=== PATIENT | female | born 1980 | race Caucasian/White ===

== ENCOUNTER 2016-04-25 15:13 | Emergency (ER) ==
[2016-04-25 15:17] VITALS: BP 148/92; TEMP 98.6; BMI 22.7
--- NOTE | 2016-04-25 15:48 | ED.PDOC ---
General ED Provider: Dr. JERAMIE THOMPSON Chief Complaint: Tooth Problem Stated Complaint: dental pain Time Seen by Physician: 15:15 Mode of Arrival: Walk-In Information Source: Patient Exam Limitations: No limitations Primary Care Provider: ADEOLA BAUM Nursing and Triage Documentation Reviewed and Agree: Yes EENT Complaint Exam - Dental/Oral Complaint/Exam Mechanism of Injury: Trauma Onset/Duration: 1week Symptoms Are: Still present Timing: Constant Initial Severity: Moderate Current Severity: Moderate Character: Reports: Throbbing Aggravating: Reports: Heat, Cold, Chewing Alleviating: Reports: None Associated Signs and Symptoms: Denies: Swelling, Discharge, Fever, Foul odor, Foul taste in mouth Related History: Reports: Similar episode Cardiac Risk Factors: Reports: None Dental/Oral Surgical History: Reports: None Tooth Findings: Present: Gross caries, Dental fracture Cervical Lymphadenopathy Present: No Facial Swelling Present: No Bleeding Present: No Septal Hematoma: No Foreign Body Present: No Dysphagia Present: No Drooling Present: No Asymmetrical Tonsillar Swelling Present: No Uvula Midline: No Margret-tonsillar Fluctuence: No Trismus Present: No Palatal Petechiae Present: No Scarlatinaform Rash Present: No Teeth Picture: 1 - decay Differential Diagnoses: Dental Caries, Fractured Tooth Review of Systems - Review Of Systems Constitutional: Reports: No symptoms Eyes: Reports: No symptoms Ears, Nose, Mouth, Throat: Reports: No symptoms Respiratory: Reports: No symptoms Cardiac: Reports: No symptoms GI: Reports: No symptoms : Reports: No symptoms Musculoskeletal: Reports: No symptoms Skin: Reports: No symptoms Neurological: Reports: No symptoms Endocrine: Reports: No symptoms Hematologic/Lymphatic: Reports: No symptoms All Other Systems: Reviewed and Negative Past Medical History - Past Medical History Previously Healthy: Yes Endocrine: Reports: None Cardiovascular: Reports: None Respiratory: Reports: None Hematological: Reports: None Gastrointestinal: Reports: None Genitourinary: Reports: Kidney stones Neuro/Psych: Reports: None, Migraine (daily headache comes on upon awakening no unusual stress no sources of gas or co in home, better with fioricet(out), has not yet followed up using BC powders) Musculoskeletal: Reports: None Cancer: Reports: None Last Menstrual Period: n/a - Surgical History General Surgical History: Reports: Unknown - Family History Family History: Reports: Unknown - Social History Smoking Status: Current some day smoker, Light tobacco smoker Hx Substance Use: No Alcohol Screening: None Physical Exam - Physical Exam Appearance: Well-appearing, No pain distress, Well-nourished Eyes: TITO, EOMI, Conjunctiva clear ENT: Ears normal, Nose normal, Oropharynx normal Respiratory: Airway patent, Breath sounds clear, Breath sounds equal, Respirations nonlabored Cardiovascular: RRR, Pulses normal, No rub, No murmur GI/: Soft, Nontender, No masses, Bowel sounds normal, No Organomegaly Musculoskeletal: Normal strength, ROM intact, No edema, No calf tenderness Skin: Warm, Dry, Normal color Neurological: Sensation intact, Motor intact, Reflexes intact, Cranial nerves intact, Alert, Oriented Psychiatric: Affect appropriate, Mood appropriate Critical Care Note - Critical Care Note Total Time (mins): 0 Course - Course Vital Signs: Temp Pulse Resp BP Pulse Ox 04/25/16 15:15 98.6 F 95 H 16 148/92 H 97 Departure - Departure Time of Disposition: 15:48 Disposition: HOME SELF-CARE Discharge Problem: Toothache Instructions: Dental Caries (ED), Toothache (ED) Condition: Good Pt referred to PMD for follow-up: No Additional Instructions: Please call your Family Physician as soon as possible to schedule a follow-up appointment. Allergies/Adverse Reactions: Allergies levofloxacin [From Levaquin] Adverse Reaction (Verified 04/25/16 15:17) ondansetron HCl [From Zofran (as hydrochloride)] Adverse Reaction (Verified 15:17) Home Medications: Ambulatory Orders 1 [No Reported Medications] 03/09/16
== END 2016-04-25 16:21 | disposition home or self-care (01) ==
LOC: ED 15:13
DX: K08.89 Other specified disorders of teeth and supporting structures (principal); K02.7 Dental root caries; F17.210 Nicotine dependence, cigarettes, uncomplicated
CPT/HCPCS: 99282

== ENCOUNTER 2016-05-09 19:17 | Emergency (ER) ==
[2016-05-09 19:22] VITALS: BMI 22.4
[2016-05-09] MEDS ORDERED: TORADOL IVP STA (19:36)
[2016-05-09] MEDS ORDERED: SODIUM CHLORIDE 1,000 ML IV STA (19:36)
[2016-05-09 19:44] LABS: BILIRUBIN,URINE Negative (NEGATIVE); KETONES,URINE Negative (NEGATIVE); LEUKOCYTE ESTERASE ,URINE Negative (NEGATIVE); NITRITE,URINE Negative (NEGATIVE); PROTEIN,URINE Negative (NEGATIVE); URINE, BLOOD Trace-intact (NEGATIVE)
[2016-05-09 19:46] LABS: ADD URINE MICROSCOPIC YES
[2016-05-09 20:03] LABS: BASOPHILS # (AUTO) 0.1 K/uL (0-0.2); BASOPHILS % (AUTO) 1.2 % (0.0-3.0); EOSINOPHILS # (AUTO) 0.1 K/ul (0.0-0.7); EOSINOPHILS % (AUTO) 0.7 % (0.0-7.0); HEMOGLOBIN 12.7 g/dl (12.0-16.0); IMMATURE GRANULOCYTE % (AUTO) 0.2 % (0.0-5.0); LYMPHOCYTES # (AUTO) 3.1 K/uL (0.60-3.4); MEAN CORPUSCULAR HEMOGLOBIN 32.1 pg (27.0-31.0); MEAN CORPUSCULAR HGB CONC 35.3 (31.8-35.4); MEAN CORPUSCULAR VOLUME 90.9 fl (81.0-99.0); MONOCYTES # (AUTO) 0.6 K/uL (0.4-2.0); MONOCYTES % (AUTO) 7.5 (0-10); NEUTROPHILS # (AUTO) 4.3 K/ul (2.0-6.9); NEUTROPHILS % (AUTO) 52.4; PLATELET COUNT 197 10^3/uL (140-440); RED BLOOD COUNT 3.96 10^6/ul (4.20-5.40); WHITE BLOOD COUNT 8.18 K/ul (4.6-10.2)
--- NOTE | 2016-05-09 20:07 | ED.PDOC ---
General ED Provider: Dr. GEOVANNA HOLDEN Chief Complaint: Abdominal Pain Stated Complaint: Patient is a 25 year old female who comes to the ER with complaints of Left upper and lower quadrant abdominal pain that started at 1400 today. Time Seen by Physician: 19:40 Mode of Arrival: Walk-In Information Source: Patient Exam Limitations: No limitations Primary Care Provider: ADEOLA BAUM Nursing and Triage Documentation Reviewed and Agree: Yes GI Complaint Exam - Abdominal Pain Complaint/Exam Onset: Sudden Duration: constant Symptoms Are: Still present Timing: Constant Initial Severity: Severe Current Severity: Severe Location of Pain: LUQ, LLQ Radiates To: Reports: Back Character: Reports: Aching, Throbbing Aggravating: Reports: None Alleviating: Reports: None Associated Signs and Symptoms: Reports: Nausea. Denies: Diaphoresis, Fever, Cough, Chest pain, Dizziness, Back pain, Constipation, Blood in stool, Dysuria, Urinary frequency, Decreased urine output, Decreased appetite, Vaginal bleeding , Vaginal discharge, Vomiting, Diarrhea, Sore throat, Decreased activity AAA Risk Factors: Reports: None Cardiac Risk Factors: Reports: None Ectopic Risk Factors: Reports: None Ovarian Torsion Risk Factors: Reports: None Related Surgical History: Reports: Kidney Stones, SIMI, BSO Patient Rh Status: Unknown Abdominal Findings: Absent: Pulsatile mass, Abdominal distention, Unequal femoral pulses, Rebound tenderness, Peritoneal signs, McBurney's Point tender, CVA Tenderness, Hernia, Inguinal swelling Differential Diagnoses: Appendicitis, Pancreatitis, Renal Colic, Ureteral Stone , PUD, Ovarian Cyst Review of Systems - Review Of Systems Constitutional: Reports: No symptoms Eyes: Reports: No symptoms Ears, Nose, Mouth, Throat: Reports: No symptoms Respiratory: Reports: No symptoms Cardiac: Reports: No symptoms GI: Reports: Abdominal pain, Nausea : Reports: No symptoms Musculoskeletal: Reports: No symptoms Skin: Reports: No symptoms Neurological: Reports: Anxiety Endocrine: Reports: No symptoms Hematologic/Lymphatic: Reports: No symptoms All Other Systems: Reviewed and Negative Past Medical History - Past Medical History Previously Healthy: Yes Endocrine: Reports: None Cardiovascular: Reports: None Respiratory: Reports: None Hematological: Reports: None Gastrointestinal: Reports: None Genitourinary: Reports: Kidney stones Neuro/Psych: Reports: None, Migraine (daily headache comes on upon awakening no unusual stress no sources of gas or co in home, better with fioricet(out), has not yet followed up using BC powders) Musculoskeletal: Reports: None Cancer: Reports: None Last Menstrual Period: NA - Surgical History General Surgical History: Reports: Hysterectomy, Other (kidney stone surgery ) - Family History Family History: Reports: Unknown - Social History Smoking Status: Current some day smoker, Light tobacco smoker Hx Substance Use: No Alcohol Screening: None - Immunizations Tetanus Shot up to Date: Yes Physical Exam - Physical Exam Appearance: Ill-appearing Ill-appearing: Mild Pain Distress: Severe Eyes: TITO, EOMI, Conjunctiva clear ENT: Ears normal, Nose normal, Oropharynx normal Neck: Supple Respiratory: Airway patent, Breath sounds clear, Breath sounds equal, Respirations nonlabored Cardiovascular: Pulses normal, No rub, No murmur, Tachycardia GI/: Soft, Tender (on the left ) Musculoskeletal: Normal strength, ROM intact, No edema, No calf tenderness Skin: Warm Neurological: Sensation intact, Motor intact, Alert, Oriented Psychiatric: Anxious Interpretation - Radiology Interpretation Radiology Interpretation By: Radiologist Radiology Results: Negative Exam Interpreted: CT Scan (Abdomen and pelvis) Re-Evaluation - Re-Evaluation Time of Re-Evaluation: 21:22 Status: Improved Vital Signs Stable: Yes Pain Level: IMPROVED Critical Care Note - Critical Care Note Total Time (mins): 0 Course - Course Hematology/Chemistry: 05/09/16 19:55 05/09/16 19:55 Orders, Labs, Meds: Lab Review 05/09/16 05/09/16 19:35 19:55 WBC 8.18 RBC 3.96 L Hgb 12.7 Hct 36.0 L MCV 90.9 MCH 32.1 H MCHC 35.3 RDW Coeff of Rich 12.4 Plt Count 197 Immature Gran % (Auto) 0.2 Neut % (Auto) 52.4 Lymph % (Auto) 38.0 [place] % (Auto) 7.5 Eos % (Auto) 0.7 Baso % (Auto) 1.2 Immature Gran # (Auto) 0.0 Neut # 4.3 Lymph # 3.1 [place] # 0.6 Eos # 0.1 Baso # 0.1 Sodium 141 Potassium 4.1 Chloride 108 H Carbon Dioxide 20 L Anion Gap 17.1 BUN 12 Creatinine 0.72 Estimated GFR (MDRD) 92.00 BUN/Creatinine Ratio 16.66 Glucose 108 Calcium 9.3 Total Bilirubin 0.28 AST 21 ALT 13 Alkaline Phosphatase 95 Total Protein 7.5 Albumin 3.7 Globulin 3.8 Albumin/Globulin Ratio 0.97 Amylase 63 Lipase 59 Urine Color Yellow Urine Clarity Clear Urine pH 6.0 Ur Specific [place] 1.015 Urine Protein Negative Urine Glucose (UA) Negative Urine Ketones Negative Urine Blood Trace-intact Urine Nitrite Negative Urine Bilirubin Negative Urine Urobilinogen 0.2 Ur Leukocyte Esterase Negative Urine Microscopic RBC 0-2 Urine Microscopic WBC 0-2 Ur Squamous Epith Cells 2-5 Urine Mucus 1+ Orders Category Date Time Status ED IV/MEDIPORT/POWERPORT .ONCE EMERGENCY 05/09/16 19:35 Active AMYLASE Stat LAB 05/09/16 19:55 Completed CBC W/ AUTO DIFF Stat LAB 05/09/16 19:55 Completed COMPREHENSIVE METABOLIC PANEL Stat LAB 05/09/16 19:55 Completed LIPASE Stat LAB 05/09/16 19:55 Completed URINALYSIS C & S IF INDICATED Stat LAB 05/09/16 19:35 Completed 0.9 % Sodium Chloride [Saline Flush] MEDS 05/09/16 19:35 Ordered 1 syr IVF PRN PRN Ketorolac Tromethamine [Toradol] MEDS 05/09/16 19:36 Discontinued 30 mg IVP ONCE STA Morphine Sulfate [Morphine 4 mg/ml Syringe] MEDS 05/09/16 20:26 Discontinued 4 mg IVP ONCE STA Promethazine HCl [Phenergan 25 mg/ml Vial] MEDS 05/09/16 20:29 Discontinued 25 mg .ROUTE .STK-MED ONE Promethazine HCl [Phenergan 25 mg/ml Vial] 25 mg MEDS 05/09/16 20:26 Discontinued 0.9 % Sodium Chloride [Sodium Chloride] 50 ml IV ONCE Sodium Chloride 0.9% [Sodium Chloride] 1,000 ml MEDS 05/09/16 19:[address] ABD/PEL WO RENAL STONE PROT Stat RADS 05/09/16 19:35 Completed Medications Generic Name Dose Route Start Last Admin Trade Name Freq PRN Reason Stop Dose Admin Sodium Chloride 1 syr 05/09/16 19:35 05/09/16 20:38 Saline Flush IVF 1 syr PRN PRN Administration To flush IV Discontinued Medications Generic Name Dose Route Start Last Admin Trade Name Freq PRN Reason Stop Dose Admin Sodium Chloride 1,000 mls @ 1,000 mls/hr 05/09/16 19:36 05/09/16 20:05 Sodium Chloride IV 05/09/16 20:35 1,000 mls/hr BOLUS STA Administration Promethazine HCl 25 mg/ Sodium 51 mls @ 75 mls/hr 05/09/16 20:26 05/09/16 20: 33 Chloride IV 05/09/16 21:06 75 mls/hr ONCE STA Administration Ketorolac Tromethamine 30 mg 05/09/16 19:36 05/09/16 20:07 Toradol IVP 05/09/16 19:37 30 mg ONCE STA Administration Morphine Sulfate 4 mg 05/09/16 20:26 05/09/16 20:36 Morphine 4 Mg/Ml Syringe IVP 05/09/16 20:27 4 mg ONCE STA Administration Vital Signs: Temp Pulse Resp BP Pulse Ox 05/09/16 19:19 98.9 F 113 H 20 134/88 98 Departure - Departure Time of Disposition: 20:58 Disposition: HOME SELF-CARE Discharge Problem: Abdominal pain Instructions: Abdominal Pain (ED) Condition: Fair Pt referred to PMD for follow-up: Yes Additional Instructions: Push fluids Take medication as prescribed. Follow up with PCP in 3 days Prescriptions: Dicyclomine HCl [Bentyl] 10 mg PO TID #15 capsule Promethazine HCl [Phenergan Tab] 25 mg PO Q6H PRN #15 tablet PRN Reason: Nausea / Vomiting Allergies/Adverse Reactions: Allergies levofloxacin [From Levaquin] Adverse Reaction (Verified 04/25/16 15:17) ondansetron HCl [From Zofran (as hydrochloride)] Adverse Reaction (Verified 15:17) Home Medications: Ambulatory Orders Dicyclomine HCl [Bentyl] 10 mg PO TID #15 capsule 05/09/16 Promethazine HCl [Phenergan Tab] 25 mg PO Q6H PRN #15 tablet 05/09/16 Disposition Discussed With: Patient, Family
[2016-05-09 20:22] LABS: ALBUMIN 3.7 g/dL (3.4-5.0); ALBUMIN/GLOBULIN RATIO 0.97; ANION GAP 17.1; BILIRUBIN,TOTAL 0.28 mg/dL (0.00-1.20); BUN/CREATININE RATIO 16.66; CALCIUM 9.3 mg/dL (8.2-10.2); CREATININE 0.72 mg/dL (0.60-1.30); POTASSIUM 4.1 mmol/L (3.5-5.10); TOTAL PROTEIN 7.5 g/dL (6.4-8.2)
[2016-05-09] MEDS ORDERED: MORPHINE 4 MG/ML SYRINGE IVP STA (20:26)
[2016-05-09] MEDS ORDERED: PHENERGAN 25 MG/ML VIAL 25 MG in SODIUM CHLORIDE 50 ML IV STA (20:26)
--- NOTE | 2016-05-09 20:27 | CT ---
EXAM: CT of the abdomen pelvis without contrast History: Left flank pain, history of kidney stones. Comparison: CT abdomen pelvis 03/09/2016 Technique: Multiplanar CT images through the abdomen pelvis were obtained without the administratio n of IV contrast Findings: Calcified granuloma seen within the left lower lobe. No acute osseous abnormalities. Gallbladder is not well distended. No focal liver or splenic lesions. Atherosclerotic vascular anila cifications are mild. No peripancreatic inflammation. Adrenal glands are unremarkable. Hyperdense bilateral renal medullary pyramids again noted. No significant interval change in the bilateral re nal calculi measuring up to 3 mm on the right and 4 mm on the left. No hydronephrosis. Simple left renal cyst again noted. No ureteral calculi. No bowel obstruction. Bladder is not well distended . The visualized appendix is not dilated or inflamed. No free air. No ascites. No perirectal inf lammation. Moderate stool within the cecum and rectosigmoid colon. Impression: 1. No acute intra-abdominal or pelvic process. 2. Nonobstructing bilateral nephrolithiasis, similar to the prior study.
[2016-05-09] MEDS ORDERED: PHENERGAN 25 MG/ML VIAL ONE (20:29)
[2016-05-09 21:28] VITALS: BP 123/83; TEMP 98.5
== END 2016-05-09 21:29 | disposition home or self-care (01) ==
LOC: ED 19:17
DX: R10.32 Left lower quadrant pain (principal); R10.12 Left upper quadrant pain; R11.0 Nausea; Z87.442 Personal history of urinary calculi; F17.210 Nicotine dependence, cigarettes, uncomplicated
CPT/HCPCS: 36415; 74176; 80053; 81001; 82150; 83690; 85025; 96361; 96365; 96375; 99283

== ENCOUNTER 2016-06-29 17:56 | Emergency (ER) ==
[2016-06-29 18:00] VITALS: BP 135/87; TEMP 98.2; BMI 23.1
[2016-06-29] MEDS ORDERED: TORADOL IVP STA (18:10)
--- NOTE | 2016-06-29 18:11 | ED.PDOC ---
General Stated Complaint: COMPLAINS OF PAIN TO LEFT LOWER QUADRANT RADIATING TO UPPER LEFT QUADRANT AND BACK [ End ]since this morning 98.2 92 18 98% 135/87 7/10 sharp radiatres to back Time Seen by Physician: 18:09 Mode of Arrival: Walk-In Information Source: Patient Exam Limitations: No limitations Nursing and Triage Documentation Reviewed and Agree: No <STANLEY MCKINLEY JR - Last Filed: 06/29/16 19:06> <MEHUL STEIN - Last Filed: 06/29/16 19:37> ED Provider: Dr. MEHUL MARLEY-IVONE Chief Complaint: Abdominal Pain Primary Care Provider: ADEOLA BAUM Review of Systems - Review Of Systems Constitutional: Reports: Malaise Eyes: Reports: No symptoms Ears, Nose, Mouth, Throat: Reports: No symptoms Respiratory: Reports: No symptoms Cardiac: Reports: No symptoms GI: Reports: Abdominal pain, Nausea : Reports: Burning (mild), Dysuria (mild), Flank pain, Pain. Denies: Discharge, Frequency, Hematuria, Incontinence Musculoskeletal: Reports: No symptoms Skin: Reports: No symptoms Neurological: Reports: No symptoms Endocrine: Reports: No symptoms Hematologic/Lymphatic: Reports: No symptoms All Other Systems: Other <STANLEY MCKINLEY JR - Last Filed: 06/29/16 19:06> Past Medical History - Past Medical History Previously Healthy: Yes Endocrine: Reports: None Cardiovascular: Reports: None Respiratory: Reports: None Hematological: Reports: None Gastrointestinal: Reports: None Genitourinary: Reports: Kidney stones Neuro/Psych: Reports: None, Migraine (daily headache comes on upon awakening no unusual stress no sources of gas or co in home, better with fioricet(out), has not yet followed up using BC powders) Musculoskeletal: Reports: None Cancer: Reports: None Last Menstrual Period: NONE - Surgical History General Surgical History: Reports: Hysterectomy, Other (kidney stone surgery ) - Family History Family History: Reports: Unknown - Social History Smoking Status: Current some day smoker, Light tobacco smoker Hx Substance Use: No Alcohol Screening: None <STANLEY MCKINLEY - Last Filed: 06/29/16 19:06> Physical Exam - Physical Exam Appearance: Ill-appearing, Thin Pain Distress: Moderate Eyes: TITO, EOMI, Conjunctiva clear ENT: Ears normal, Nose normal, Oropharynx normal Neck: Supple Respiratory: Airway patent, Breath sounds equal, Breath sounds diminished, Respirations nonlabored, Rhonchi Cardiovascular: RRR, Pulses normal, No rub, No murmur GI/: Soft, Nontender, No masses, Bowel sounds normal, No Organomegaly Musculoskeletal: Normal strength, ROM intact, No edema, No calf tenderness Skin: Warm, Dry, Normal color Neurological: Sensation intact, Motor intact, Reflexes intact, Cranial nerves intact, Alert, Oriented Psychiatric: Affect appropriate, Mood appropriate <STANLEY MCKINLEY JR - Last Filed: 06/29/16 19:06> Re-Evaluation - Re-Evaluation Time of Re-Evaluation: 19:35 Status: Improved Vital Signs Stable: Yes Pain Level: 1 Appearance: NAD Lungs: Clear Skin: Warm and Dry Neuro: Alert and Oriented X3 CV: RRR <MEHUL STEIN - Last Filed: 06/29/16 19:37> Physician Notification - Case Discussed Endorsed To/Discussed With: DR MARLEY <STANLEY MCKINLEY JR - Last Filed: 06/29/16 19:06> Critical Care Note - Critical Care Note Total Time (mins): 0 <STANLEY MCKINLEY JR - Last Filed: 06/29/16 19:06> Course - Course Hematology/Chemistry: 06/29/16 18:15 06/29/16 18:15 <STANLEY MCKINLEY JR - Last Filed: 06/29/16 19:06> - Course Hematology/Chemistry: 06/29/16 18:15 06/29/16 18:15 <MEHUL STEIN - Last Filed: 06/29/16 19:37> - Course Orders, Labs, Meds: Lab Review 06/29/16 06/29/16 18:05 18:15 WBC 7.87 RBC 3.85 L Hgb 12.3 Hct 35.7 L MCV 92.7 MCH 31.9 H MCHC 34.5 RDW Coeff of Rich 12.6 Plt Count 158 Immature Gran % (Auto) 0.1 Neut % (Auto) 54.9 Lymph % (Auto) 35.1 [place] % (Auto) 7.6 Eos % (Auto) 1.3 Baso % (Auto) 1.0 Immature Gran # (Auto) 0.0 Neut # 4.3 Lymph # 2.8 [place] # 0.6 Eos # 0.1 Baso # 0.1 Sodium 142 Potassium 3.7 Chloride 107 Carbon Dioxide 28 Anion Gap 10.7 BUN 17 Creatinine 0.81 Estimated GFR (MDRD) 80.00 BUN/Creatinine Ratio 20.98 Glucose 96 Calcium 9.6 Total Bilirubin 0.18 AST 18 ALT 16 Alkaline Phosphatase 81 Total Protein 6.9 Albumin 3.6 Globulin 3.3 Albumin/Globulin Ratio 1.09 Amylase 46 Lipase 33 Urine Color Yellow Urine Clarity Clear Urine pH 6.0 Ur Specific [place] 1.025 Urine Protein Negative Urine Glucose (UA) Negative Urine Ketones Negative Urine Blood Trace-lysed Urine Nitrite Negative Urine Bilirubin Negative Urine Urobilinogen 0.2 Ur Leukocyte Esterase Negative Urine Microscopic RBC 5-10 Ur Squamous Epith Cells 20-30 Orders Category Date Time Status ED IV/MEDIPORT/POWERPORT .ONCE EMERGENCY 06/29/16 18:09 Active Urine [ED STRAIN URINE] .ONCE EMERGENCY 06/29/16 19:34 Active AMYLASE Stat LAB 06/29/16 18:15 Completed CBC W/ AUTO DIFF Stat LAB 06/29/16 18:15 Completed COMPREHENSIVE METABOLIC PANEL Stat LAB 06/29/16 18:15 Completed LIPASE Stat LAB 06/29/16 18:15 Completed URINALYSIS C & S IF INDICATED Stat LAB 06/29/16 18:05 Completed 0.9 % Sodium Chloride [Saline Flush] MEDS 06/29/16 18:09 Ordered 1 syr IVF PRN PRN Ketorolac Tromethamine [Toradol] MEDS 06/29/16 18:10 Discontinued 30 mg IVP ONCE STA Morphine Sulfate [Morphine 4 mg/ml Syringe] MEDS 06/29/16 19:07 Discontinued 4 mg IVP ONCE STA Promethazine HCl [Phenergan 25 mg/ml Vial] MEDS 06/29/16 19:09 Discontinued 25 mg .ROUTE .STK-MED ONE Promethazine HCl [Phenergan 25 mg/ml Vial] 25 mg MEDS 06/29/16 19:07 Active 0.9 % Sodium Chloride [Sodium Chloride] [address] ABDOMEN/PELVIS WO CONTRAST Stat RADS 06/29/16 18:10 Taken Medications Generic Name Dose Route Start Last Admin Trade Name Freq PRN Reason Stop Dose Admin Promethazine HCl 25 mg/ Sodium 51 mls @ 75 mls/hr 06/29/16 19:07 06/29/16 19: 15 Chloride IV 06/29/16 19:47 75 mls/hr ONCE STA Administration Sodium Chloride 1 syr 06/29/16 18:09 06/29/16 18:32 Saline Flush IVF 1 syr PRN PRN Administration To flush IV Discontinued Medications Generic Name Dose Route Start Last Admin Trade Name Vianey PRN Reason Stop Dose Admin Ketorolac Tromethamine 30 mg 06/29/16 18:10 06/29/16 18:35 Toradol IVP 06/29/16 18:11 30 mg ONCE STA Administration Morphine Sulfate 4 mg 06/29/16 19:07 06/29/16 19:15 Morphine 4 Mg/Ml Syringe IVP 06/29/16 19:08 4 mg ONCE STA Administration Vital Signs: Temp Pulse Resp BP Pulse Ox 06/29/16 17:57 98.2 F 92 H 18 135/87 98 Departure <STANLEY MCKINLEY JR - Last Filed: 06/29/16 19:06> - Departure Time of Disposition: 19:35 Pt referred to PMD for follow-up: Yes Disposition Discussed With: Patient <MEHUL STEIN - Last Filed: 06/29/16 19:37> - Departure Disposition: HOME SELF-CARE Discharge Problem: Hematuria, Flank pain Instructions: Flank Pain (ED) Condition: Good Additional Instructions: strain all urine...norco 7.5mg q 4hrs prn pain #10--f/u with dr lerner this week Allergies/Adverse Reactions: Allergies levofloxacin [From Levaquin] Adverse Reaction (Verified 06/29/16 18:01) ondansetron HCl [From Zofran (as hydrochloride)] Adverse Reaction (Verified 18:01) Home Medications: Ambulatory Orders 1 [No Reported Medications] 06/29/16
[2016-06-29 18:17] LABS: BILIRUBIN,URINE Negative (NEGATIVE); KETONES,URINE Negative (NEGATIVE); LEUKOCYTE ESTERASE ,URINE Negative (NEGATIVE); NITRITE,URINE Negative (NEGATIVE); PROTEIN,URINE Negative (NEGATIVE); URINE, BLOOD Trace-lysed (NEGATIVE)
[2016-06-29 18:22] LABS: BASOPHILS # (AUTO) 0.1 K/uL (0-0.2); EOSINOPHILS # (AUTO) 0.1 K/ul (0.0-0.7); EOSINOPHILS % (AUTO) 1.3 % (0.0-7.0); HEMATOCRIT 35.7 % (37.0-47.0); HEMOGLOBIN 12.3 g/dl (12.0-16.0); IMMATURE GRANULOCYTE % (AUTO) 0.1 % (0.0-5.0); LYMPHOCYTES # (AUTO) 2.8 K/uL (0.60-3.4); LYMPHOCYTES % (AUTO) 35.1 (10.0-50.0); MEAN CORPUSCULAR HEMOGLOBIN 31.9 pg (27.0-31.0); MEAN CORPUSCULAR HGB CONC 34.5 (31.8-35.4); MEAN CORPUSCULAR VOLUME 92.7 fl (81.0-99.0); MONOCYTES # (AUTO) 0.6 K/uL (0.4-2.0); MONOCYTES % (AUTO) 7.6 (0-10); NEUTROPHILS # (AUTO) 4.3 K/ul (2.0-6.9); NEUTROPHILS % (AUTO) 54.9; PLATELET COUNT 158 10^3/uL (140-440); RED BLOOD COUNT 3.85 10^6/ul (4.20-5.40); WHITE BLOOD COUNT 7.87 K/ul (4.6-10.2)
[2016-06-29 18:23] LABS: ADD URINE MICROSCOPIC YES
[2016-06-29 18:39] LABS: ALBUMIN 3.6 g/dL (3.4-5.0); ALBUMIN/GLOBULIN RATIO 1.09; ANION GAP 10.7; BILIRUBIN,TOTAL 0.18 mg/dL (0.00-1.20); BUN/CREATININE RATIO 20.98; CALCIUM 9.6 mg/dL (8.2-10.2); CREATININE 0.81 mg/dL (0.60-1.30); POTASSIUM 3.7 mmol/L (3.5-5.10); TOTAL PROTEIN 6.9 g/dL (6.4-8.2)
[2016-06-29] MEDS ORDERED: MORPHINE 4 MG/ML SYRINGE IVP STA (19:07)
[2016-06-29] MEDS ORDERED: PHENERGAN 25 MG/ML VIAL 25 MG in SODIUM CHLORIDE 50 ML IV STA (19:07)
[2016-06-29] MEDS ORDERED: PHENERGAN 25 MG/ML VIAL ONE (19:09)
--- NOTE | 2016-06-29 19:39 | CT ---
EXAM: CT abdomen pelvis without contrast TECHNIQUE: Helical axial CT of the abdomen pelvis was performed without contrast with coronal and s agittal reconstructions. 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 There is a peripelvic cyst also seen on the left. There is no hydr onephrosis. No definite left ureteral stone is identified however there is a very tiny punctate anila cification seen in the region of the distal left ureter on image number 122 of the axial images whic h may be a very small stone at that location. There are no filling defects in the urinary bladder w hich is decompressed. The liver, spleen, pancreas, adrenal glands, lung bases are all unremarkable. There is no free air free fluid or bowel wall thickening or edema or pathologic lymph nodes. There is no acute osseous a bnormality. There has been prior hysterectomy. The appendix and gallbladder are normal. Gallbladd er is contracted. IMPRESSION: 1. Possible very tiny punctate distal left ureteral stone as described. There is no hydronephrosis . 2. Multiple punctate calyceal stones bilaterally as described probably on the basis of medullary ne phrocalcinosis. 3. Small left peripelvic renal cyst. Report called to emergency department
== END 2016-06-29 19:52 | disposition home or self-care (01) ==
LOC: ED 17:56
DX: R31.9 Hematuria, unspecified (principal); R10.9 Unspecified abdominal pain; Z87.442 Personal history of urinary calculi; F17.210 Nicotine dependence, cigarettes, uncomplicated
CPT/HCPCS: 36415; 80053; 81001; 82150; 83690; 85025; 96365; 96375; 99283

== ENCOUNTER 2016-08-28 14:11 | Emergency (ER) ==
[2016-08-28 14:18] VITALS: BP 142/85; TEMP 98.7; BMI 24.1
[2016-08-28 15:00] LABS: BASOPHILS # (AUTO) 0.1 K/uL (0-0.2); BASOPHILS % (AUTO) 1.3 % (0.0-3.0); EOSINOPHILS # (AUTO) 0.1 K/ul (0.0-0.7); EOSINOPHILS % (AUTO) 1.8 % (0.0-7.0); HEMATOCRIT 36.4 % (37.0-47.0); IMMATURE GRANULOCYTE % (AUTO) 0.3 % (0.0-5.0); LYMPHOCYTES # (AUTO) 2.1 K/uL (0.60-3.4); MEAN CORPUSCULAR HEMOGLOBIN 32.3 pg (27.0-31.0); MEAN CORPUSCULAR HGB CONC 35.7 (31.8-35.4); MEAN CORPUSCULAR VOLUME 90.5 fl (81.0-99.0); MONOCYTES # (AUTO) 0.6 K/uL (0.4-2.0); MONOCYTES % (AUTO) 8.7 (0-10); NEUTROPHILS # (AUTO) 4.2 K/ul (2.0-6.9); NEUTROPHILS % (AUTO) 58.9; PLATELET COUNT 165 10^3/uL (140-440); RED BLOOD COUNT 4.02 10^6/ul (4.20-5.40); WHITE BLOOD COUNT 7.14 K/ul (4.6-10.2)
[2016-08-28 15:02] LABS: BILIRUBIN,URINE Negative (NEGATIVE); KETONES,URINE Negative (NEGATIVE); LEUKOCYTE ESTERASE ,URINE Negative (NEGATIVE); NITRITE,URINE Negative (NEGATIVE); PROTEIN,URINE Negative (NEGATIVE); URINE, BLOOD Negative (NEGATIVE)
[2016-08-28 15:03] LABS: ADD URINE MICROSCOPIC NO
[2016-08-28 15:14] LABS: SERUM PREGNANCY INTERNAL QC INTERNAL QC VALID
--- NOTE | 2016-08-28 15:17 | CT ---
EXAM: CT scan of the abdomen and pelvis without contrast HISTORY: Left flank pain TECHNIQUE: Imaging of the abdomen and pelvis was performed without contrast. 3 mm thin axial image s and coronal and sagittal reconstructions were provided for interpretation. Comparison CT scan of the abdomen and pelvis dated 05/09/2016. FINDINGS: Multiple small nonobstructing calculi are seen within the calyces of the kidneys bilatera lly. The proximal ureters are normal size. The liver, spleen, pancreas, adrenal glands appear dk l. The small and large bowel loops are normal caliber. There is no free air. No acute abnormaliti es are seen within the anterior abdominal wall. The helical images obtained through the pelvis demonstrate a normal appearance of the rectum, urinar y bladder. There is no free fluid seen within the pelvis. There is a normal appearance of the appen ej. There has been previous hysterectomy. Lung bases are clear. No lytic or blastic lesions are seen within the osseous structures. IMPRESSION: There is no bowel obstruction or acute inflammatory change seen within the abdomen and pelvis. There is no ureteral obstruction. Nonobstructing nephrolithiasis seen within the kidneys bilaterally.
[2016-08-28 15:20] LABS: ALBUMIN 3.2 g/dL (3.4-5.0); ANION GAP 11.4; BILIRUBIN,TOTAL 0.17 mg/dL (0.00-1.20); BUN/CREATININE RATIO 14.92; CALCIUM 8.8 mg/dL (8.2-10.2); CREATININE 0.67 mg/dL (0.60-1.30); POTASSIUM 3.4 mmol/L (3.5-5.10); TOTAL PROTEIN 6.4 g/dL (6.4-8.2)
--- NOTE | 2016-08-28 15:30 | ED.PDOC ---
General ED Provider: Dr. JERAMIE THOMPSON Chief Complaint: Abdominal Pain Stated Complaint: abdominal pain Time Seen by Physician: 14:11 (seen with nursing at all times ) Mode of Arrival: Walk-In Information Source: Patient Exam Limitations: No limitations Primary Care Provider: ADEOLA BAUM Nursing and Triage Documentation Reviewed and Agree: Yes GI Complaint Exam - Abdominal Pain Complaint/Exam Onset: Gradual Duration: 1 day Symptoms Are: Still present Timing: Constant Initial Severity: Mild Current Severity: Mild Location of Pain: Diffuse Character: Reports: Aching Aggravating: Reports: None Alleviating: Reports: None Associated Signs and Symptoms: Denies: Diaphoresis, Fever, Cough, Chest pain, Dizziness, Back pain, Constipation, Blood in stool, Dysuria, Urinary frequency, Decreased urine output, Decreased appetite, Vaginal bleeding, Vaginal discharge , Nausea, Vomiting, Diarrhea, Sore throat, Decreased activity Related History: Reports: Similar episode AAA Risk Factors: Reports: None Cardiac Risk Factors: Reports: None Ectopic Risk Factors: Reports: None Ovarian Torsion Risk Factors: Reports: None Surgical Obstruction Risk Factors: Reports: None Related Surgical History: Reports: None Patient Rh Status: Unknown Abdominal Findings: Present: None Review of Systems - Review Of Systems Constitutional: Reports: No symptoms Eyes: Reports: No symptoms Ears, Nose, Mouth, Throat: Reports: No symptoms Respiratory: Reports: No symptoms Cardiac: Reports: No symptoms GI: Reports: Abdominal pain : Reports: No symptoms Musculoskeletal: Reports: No symptoms Skin: Reports: No symptoms Neurological: Reports: No symptoms Endocrine: Reports: No symptoms Hematologic/Lymphatic: Reports: No symptoms All Other Systems: Reviewed and Negative Past Medical History - Past Medical History Previously Healthy: Yes Endocrine: Reports: None Cardiovascular: Reports: None Respiratory: Reports: None Hematological: Reports: None Gastrointestinal: Reports: None Genitourinary: Reports: Kidney stones Neuro/Psych: Reports: None, Migraine (daily headache comes on upon awakening no unusual stress no sources of gas or co in home, better with fioricet(out), has not yet followed up using BC powders) Musculoskeletal: Reports: None Cancer: Reports: None Last Menstrual Period: na - Surgical History General Surgical History: Reports: Hysterectomy, Other (kidney stone surgery ) - Family History Family History: Reports: Unknown - Social History Smoking Status: Current some day smoker, Light tobacco smoker Hx Substance Use: No Alcohol Screening: None - Immunizations Tetanus Shot up to Date: Yes Physical Exam - Physical Exam Appearance: Well-appearing, No pain distress, Well-nourished Eyes: TITO, EOMI, Conjunctiva clear ENT: Ears normal, Nose normal, Oropharynx normal Respiratory: Airway patent, Breath sounds clear, Breath sounds equal, Respirations nonlabored Cardiovascular: RRR, Pulses normal, No rub, No murmur GI/: Soft, Nontender, No masses, Bowel sounds normal, No Organomegaly Musculoskeletal: Normal strength, ROM intact, No edema, No calf tenderness Skin: Warm, Dry, Normal color Neurological: Sensation intact, Motor intact, Reflexes intact, Cranial nerves intact, Alert, Oriented Psychiatric: Affect appropriate, Mood appropriate Interpretation - Radiology Interpretation Radiology Interpretation By: Radiologist Radiology Results: Positive Exam Interpreted: CT Scan (renal stone) Critical Care Note - Critical Care Note Total Time (mins): 0 Course - Course Hematology/Chemistry: 08/28/16 14:50 08/28/16 14:50 Orders, Labs, Meds: Lab Review 08/28/16 14:50 WBC 7.14 RBC 4.02 L Hgb 13.0 Hct 36.4 L MCV 90.5 MCH 32.3 H MCHC 35.7 H RDW Coeff of Rich 12.3 Plt Count 165 Immature Gran % (Auto) 0.3 Neut % (Auto) 58.9 Lymph % (Auto) 29.0 Ransom % (Auto) 8.7 Eos % (Auto) 1.8 Baso % (Auto) 1.3 Immature Gran # (Auto) 0.0 Neut # 4.2 Lymph # 2.1 Ransom # 0.6 Eos # 0.1 Baso # 0.1 Sodium 142 Potassium 3.4 L Chloride 110 H Carbon Dioxide 24 Anion Gap 11.4 BUN 10 Creatinine 0.67 Estimated GFR (MDRD) 99.00 BUN/Creatinine Ratio 14.92 Glucose 95 Calcium 8.8 Total Bilirubin 0.17 AST 13 L ALT 15 Alkaline Phosphatase 75 Total Protein 6.4 Albumin 3.2 L Globulin 3.2 Albumin/Globulin Ratio 1.00 Amylase 53 Lipase 32 Serum , Qual Negative Urine Color Yellow Urine Clarity Clear Urine pH 6.0 Ur Specific [place] 1.020 Urine Protein Negative Urine Glucose (UA) Negative Urine Ketones Negative Urine Blood Negative Urine Nitrite Negative Urine Bilirubin Negative Urine Urobilinogen 1.0 Ur Leukocyte Esterase Negative Orders Category Date Time Status AMYLASE Stat LAB 08/28/16 14:50 Completed CBC W/ AUTO DIFF Stat LAB 08/28/16 14:50 Completed COMPREHENSIVE METABOLIC PANEL Stat LAB 08/28/16 14:50 Completed LIPASE Stat LAB 08/28/16 14:50 Completed SERUM Stat LAB 08/28/16 14:50 Completed UA [URINALYSIS C & S IF INDICATED] Stat LAB 08/28/16 14:[address] ABD/PEL WO RENAL STONE PROT Stat RADS 08/28/16 14:47 Completed Vital Signs: Temp Pulse Resp BP Pulse Ox 08/28/16 14:11 98.7 F 85 16 142/85 H 98 Departure - Departure Time of Disposition: 15:30 Disposition: HOME SELF-CARE Discharge Problem: Abdominal pain, Kidney stone Instructions: Kidney Stones (ED), How to Strain Your Urine (ED), Renal Colic ( ED) Condition: Good Pt referred to PMD for follow-up: No Additional Instructions: Please call your Family Physician as soon as possible to schedule a follow-up appointment. Allergies/Adverse Reactions: Allergies levofloxacin [From Levaquin] Adverse Reaction (Verified 06/29/16 18:01) ondansetron HCl [From Zofran (as hydrochloride)] Adverse Reaction (Verified 18:01) Home Medications: Ambulatory Orders Hydrocodone/Acetaminophen [[place] 10-325 Tablet] 1 each PO Q8HR #7 tablet Disposition Discussed With: Patient, Family
== END 2016-08-28 15:52 | disposition home or self-care (01) ==
LOC: ED 14:11
DX: N20.0 Calculus of kidney (principal); R10.9 Unspecified abdominal pain; Z87.442 Personal history of urinary calculi; F17.200 Nicotine dependence, unspecified, uncomplicated
CPT/HCPCS: 36415; 74176; 80053; 81001; 82150; 83690; 84703; 85025; 99283

== ENCOUNTER 2016-10-16 11:17 | Emergency (ER) ==
[2016-10-16 11:18] VITALS: BMI 23.1
[2016-10-16 11:24] VITALS: BP 157/87; TEMP 98
[2016-10-16] MEDS ORDERED: SODIUM CHLORIDE 1,000 ML IV STA (11:31)
[2016-10-16] MEDS ORDERED: PHENERGAN 25 MG/ML VIAL 25 MG in SODIUM CHLORIDE 50 ML IV STA (11:31)
[2016-10-16] MEDS ORDERED: MORPHINE 2 MG/ML SYRINGE IVP STA (11:31)
[2016-10-16] MEDS ORDERED: PHENERGAN 25 MG/ML VIAL ONE (11:43)
[2016-10-16 11:46] LABS: BASOPHILS # (AUTO) 0.1 K/uL (0-0.2); EOSINOPHILS # (AUTO) 0.1 K/ul (0.0-0.7); EOSINOPHILS % (AUTO) 1.2 % (0.0-7.0); HEMATOCRIT 39.1 % (37.0-47.0); HEMOGLOBIN 13.5 g/dl (12.0-16.0); IMMATURE GRANULOCYTE % (AUTO) 0.1 % (0.0-5.0); LYMPHOCYTES # (AUTO) 1.6 K/uL (0.60-3.4); LYMPHOCYTES % (AUTO) 20.8 (10.0-50.0); MEAN CORPUSCULAR HEMOGLOBIN 31.5 pg (27.0-31.0); MEAN CORPUSCULAR HGB CONC 34.5 (31.8-35.4); MEAN CORPUSCULAR VOLUME 91.4 fl (81.0-99.0); MONOCYTES # (AUTO) 0.4 K/uL (0.4-2.0); NEUTROPHILS # (AUTO) 5.6 K/ul (2.0-6.9); NEUTROPHILS % (AUTO) 71.9; PLATELET COUNT 185 10^3/uL (140-440); RED BLOOD COUNT 4.28 10^6/ul (4.20-5.40)
[2016-10-16 11:53] LABS: BILIRUBIN,URINE Negative (NEGATIVE); KETONES,URINE Negative (NEGATIVE); LEUKOCYTE ESTERASE ,URINE Negative (NEGATIVE); NITRITE,URINE Negative (NEGATIVE); PROTEIN,URINE Negative (NEGATIVE); URINE, BLOOD Negative (NEGATIVE)
[2016-10-16 11:57] LABS: ADD URINE MICROSCOPIC NO
[2016-10-16 12:07] LABS: ALBUMIN 3.5 g/dL (3.4-5.0); ALBUMIN/GLOBULIN RATIO 0.88; BILIRUBIN,TOTAL 0.19 mg/dL (0.00-1.20); BUN/CREATININE RATIO 18.3; CALCIUM 9.1 mg/dL (8.2-10.2); CREATININE 0.71 mg/dL (0.60-1.30); TOTAL PROTEIN 7.5 g/dL (6.4-8.2)
[2016-10-16 12:20] LABS: ERYTHROCYTE SEDIMENTATION RATE 31 mm/hr (0-20); ESR INTERNAL QC INTERNAL QC VALID
--- NOTE | 2016-10-16 12:46 | CT ---
EXAM: CT scan of the abdomen and pelvis with and without contrast HISTORY: Right lower quadrant pain TECHNIQUE: Imaging of the abdomen and pelvis was performed before and after the intravenous adminis tration of contrast. 3 mm thin axial images and coronal and sagittal reconstructions were provided for interpretation. Comparison 06/29/2016. . FINDINGS: There is a normal appearance of the appendix. The small and large bowel loops are normal caliber. The liver, spleen, pancreas, adrenal glands appear normal. Nonobstructing calculi are se en within the calyces of the kidneys bilaterally. There is no evidence of obstructing calculi. The helical images obtained through the pelvis demonstrate a normal appearance of the rectum, urinar y bladder. There is no free fluid seen within the pelvis. No acute abnormalities are seen within t he anterior abdominal wall. Lung bases are clear. No lytic or blastic lesions are seen within the osseous structures. IMPRESSION: There is no bowel obstruction or acute inflammatory change seen within the abdomen and pelvis. Bilateral nonobstructing nephrolithiasis. There is no obstructing ureteral calculi.
--- NOTE | 2016-10-16 12:58 | ED.PDOC ---
General ED Provider: Dr. MEHUL MARLEY-ER Chief Complaint: Abdominal Pain Stated Complaint: mateo been moving furniture around-- i could have pulled something Time Seen by Physician: 11:20 Mode of Arrival: Walk-In Information Source: Patient, Family Exam Limitations: No limitations Primary Care Provider: ADEOLA GUARDADO Nursing and Triage Documentation Reviewed and Agree: Yes GI Complaint Exam - Abdominal Pain Complaint/Exam Onset: Gradual Duration: several days Symptoms Are: Still present Timing: Constant Initial Severity: Mild Current Severity: Mild Location of Pain: Discrete, RLQ Radiates To: Reports: Back Character: Reports: Dull, Aching Aggravating: Reports: None Alleviating: Reports: Spontaneous resolution Associated Signs and Symptoms: Denies: Diaphoresis, Fever, Cough, Chest pain, Dizziness, Back pain, Constipation, Blood in stool, Dysuria, Decreased urine output, Decreased appetite, Vaginal discharge, Nausea, Vomiting, Diarrhea, Sore throat, Decreased activity Ovarian Torsion Risk Factors: Reports: Hysterectomy Surgical Obstruction Risk Factors: Reports: Prior abdominal surgery Related Surgical History: Reports: SIMI, BSO Patient Rh Status: Unknown Differential Diagnoses: Constipation, Pancreatitis, Renal Colic, Ureteral Stone Review of Systems - Review Of Systems Constitutional: Reports: No symptoms Eyes: Reports: No symptoms Ears, Nose, Mouth, Throat: Reports: No symptoms Respiratory: Reports: No symptoms Cardiac: Reports: No symptoms GI: Reports: Abdominal pain : Reports: No symptoms Musculoskeletal: Reports: No symptoms Skin: Reports: No symptoms Neurological: Reports: No symptoms Endocrine: Reports: No symptoms Hematologic/Lymphatic: Reports: No symptoms All Other Systems: Reviewed and Negative Past Medical History - Past Medical History Previously Healthy: Yes Endocrine: Reports: None Cardiovascular: Reports: None Respiratory: Reports: None Hematological: Reports: None Gastrointestinal: Reports: None Genitourinary: Reports: Kidney stones Neuro/Psych: Reports: None, Migraine (daily headache comes on upon awakening no unusual stress no sources of gas or co in home, better with fioricet(out), has not yet followed up using BC powders) Musculoskeletal: Reports: None Cancer: Reports: None Last Menstrual Period: hysterectomy - Surgical History General Surgical History: Reports: Hysterectomy, Other (kidney stone surgery ) - Family History Family History: Reports: Unknown - Social History Smoking Status: Current every day smoker, Light tobacco smoker Hx Substance Use: No Alcohol Screening: None Lives: With family Physical Exam - Physical Exam Appearance: Well-appearing, No pain distress, Well-nourished Pain Distress: Mild Eyes: TITO, EOMI, Conjunctiva clear ENT: Ears normal, Nose normal, Oropharynx normal Neck: Supple Respiratory: Airway patent, Breath sounds clear, Breath sounds equal, Respirations nonlabored Cardiovascular: RRR, Pulses normal, No rub, No murmur GI/: Soft, No masses, Bowel sounds normal, No Organomegaly, Tender Musculoskeletal: Normal strength, ROM intact, No edema, No calf tenderness Skin: Warm, Dry, Normal color Neurological: Sensation intact, Motor intact, Reflexes intact, Cranial nerves intact, Alert, Oriented Psychiatric: Affect appropriate, Mood appropriate Interpretation - Radiology Interpretation Radiology Interpretation By: Radiologist Radiology Results: Negative Exam Interpreted: CT Scan Re-Evaluation - Re-Evaluation Time of Re-Evaluation: 12:59 Status: Improved Vital Signs Stable: Yes Pain Level: 1 Appearance: NAD Lungs: Clear Skin: Warm and Dry Neuro: Alert and Oriented X3 CV: RRR Critical Care Note - Critical Care Note Total Time (mins): 0 Course - Course Hematology/Chemistry: 10/16/16 11:35 10/16/16 11:35 Orders, Labs, Meds: Lab Review 10/16/16 10/16/16 11:30 11:35 WBC 7.80 RBC 4.28 Hgb 13.5 Hct 39.1 MCV 91.4 MCH 31.5 H MCHC 34.5 RDW Coeff of Rich 12.3 Plt Count 185 Immature Gran % (Auto) 0.1 Neut % (Auto) 71.9 Lymph % (Auto) 20.8 [place] % (Auto) 5.0 Eos % (Auto) 1.2 Baso % (Auto) 1.0 Immature Gran # (Auto) 0.0 Neut # 5.6 Lymph # 1.6 Jerome # 0.4 Eos # 0.1 Baso # 0.1 ESR 31 H Sodium 143 Potassium 4.0 Chloride 107 Carbon Dioxide 24 Anion Gap 16.0 BUN 13 Creatinine 0.71 Estimated GFR (MDRD) 93.00 BUN/Creatinine Ratio 18.30 Glucose 92 Calcium 9.1 Total Bilirubin 0.19 AST 12 L ALT 10 L Alkaline Phosphatase 106 H Total Protein 7.5 Albumin 3.5 Globulin 4.0 Albumin/Globulin Ratio 0.88 Amylase 51 Lipase 22 Urine Color Yellow Urine Clarity Clear Urine pH 7.0 Ur Specific [place] 1.020 Urine Protein Negative Urine Glucose (UA) Negative Urine Ketones Negative Urine Blood Negative Urine Nitrite Negative Urine Bilirubin Negative Urine Urobilinogen 1.0 Ur Leukocyte Esterase Negative Orders Category Date Time Status NPO REMINDER: IMAGING ONCE CARE 10/16/16 11:31 Active IV [ED IV/MEDIPORT/POWERPORT] .ONCE EMERGENCY 10/16/16 11:30 Active AMYLASE Stat LAB 10/16/16 11:35 Completed CBC W/ AUTO DIFF Stat LAB 10/16/16 11:35 Completed COMPREHENSIVE METABOLIC PANEL Stat LAB 10/16/16 11:35 Completed ESR Stat LAB 10/16/16 11:35 Completed LIPASE Stat LAB 10/16/16 11:35 Completed URINALYSIS C & S IF INDICATED Stat LAB 10/16/16 11:30 Completed 0.9 % Sodium Chloride [Saline Flush] MEDS 10/16/16 11:30 Active 1 syr IVF PRN PRN Morphine Sulfate [Morphine 2 mg/ml Syringe] MEDS 10/16/16 11:31 Discontinued 2 mg IVP ONCE STA Promethazine HCl [Phenergan 25 mg/ml Vial] MEDS 10/16/16 11:43 Discontinued 25 mg .ROUTE .STK-MED ONE Promethazine HCl [Phenergan 25 mg/ml Vial] 25 mg MEDS 10/16/16 11:31 Discontinued 0.9 % Sodium Chloride [Sodium Chloride] 50 ml IV ONCE Sodium Chloride 0.9% [Sodium Chloride] 1,000 ml MEDS 10/16/16 11:31 Active IV 100 mls/hr CT ABDOMEN/PELVIS W/WO CONTRAS Stat RADS 10/16/16 11:31 Completed Medications Generic Name Dose Route Start Last Admin Trade Name Freq PRN Reason Stop Dose Admin Sodium Chloride 1,000 mls @ 100 mls/hr 10/16/16 11:31 10/16/16 11:54 Sodium Chloride IV 10/16/16 21:30 100 mls/hr .Q10H STA Administration Sodium Chloride 1 syr 10/16/16 11:30 10/16/16 11:54 Saline Flush IVF 1 syr PRN PRN Administration To flush IV Discontinued Medications Generic Name Dose Route Start Last Admin Trade Name Freq PRN Reason Stop Dose Admin Promethazine HCl 25 mg/ Sodium 51 mls @ 75 mls/hr 10/16/16 11:31 10/16/16 11: 55 Chloride IV 10/16/16 12:11 75 mls/hr ONCE STA Administration Morphine Sulfate 2 mg 10/16/16 11:31 10/16/16 11:54 Morphine 2 Mg/Ml Syringe IVP 10/16/16 11:32 2 mg ONCE STA Administration Vital Signs: Temp Pulse Resp BP Pulse Ox 10/16/16 11:18 98 F 85 20 157/87 H 97 Departure - Departure Time of Disposition: 12:59 Disposition: HOME SELF-CARE Discharge Problem: Abdominal pain Instructions: Abdominal Pain (ED) Condition: Good Pt referred to PMD for follow-up: Yes Additional Instructions: f/u with adeola guardado tomorrow--tylenol #3 q 6hrs prn pain#6-- Allergies/Adverse Reactions: Allergies levofloxacin [From Levaquin] Adverse Reaction (Verified 10/16/16 11:24) ondansetron HCl [From Zofran (as hydrochloride)] Adverse Reaction (Verified 11:24) Home Medications: Ambulatory Orders 1 [No Reported Medications] 10/16/16 Disposition Discussed With: Patient, Family
== END 2016-10-16 13:10 | disposition home or self-care (01) ==
LOC: ED 11:17
DX: R10.31 Right lower quadrant pain (principal); Z87.442 Personal history of urinary calculi; F17.210 Nicotine dependence, cigarettes, uncomplicated
CPT/HCPCS: 36415; 80053; 81001; 82150; 83690; 85025; 85651; 96361; 96365; 96375; 99283

== ENCOUNTER 2016-11-12 17:27 | Emergency (ER) ==
[2016-11-12 17:36] VITALS: BP 153/91; TEMP 98.4; BMI 23.5
--- NOTE | 2016-11-12 18:03 | ED.PDOC ---
General ED Provider: Dr. MARICHUY ALVARADO Chief Complaint: Abdominal Pain Stated Complaint: Been hurting in left lower belly, burning and frequency of urination Time Seen by Physician: 18:01 Mode of Arrival: Walk-In Information Source: Patient Primary Care Provider: ADEOLA BAUM Nursing and Triage Documentation Reviewed and Agree: Yes GI Complaint Exam - Abdominal Pain Complaint/Exam Onset: Gradual Symptoms Are: Still present Timing: Constant Initial Severity: Mild Current Severity: Moderate Location of Pain: LLQ Character: Reports: Dull, Aching Aggravating: Reports: Movement Alleviating: Reports: None Associated Signs and Symptoms: Reports: Dysuria, Urinary frequency. Denies: Diaphoresis, Fever, Cough, Chest pain, Dizziness, Back pain, Constipation, Blood in stool, Decreased urine output, Decreased appetite, Vaginal bleeding, Vaginal discharge, Nausea, Vomiting, Diarrhea, Sore throat, Decreased activity AAA Risk Factors: Reports: None Cardiac Risk Factors: Reports: None Ectopic Risk Factors: Reports: None Ovarian Torsion Risk Factors: Reports: None Surgical Obstruction Risk Factors: Reports: None Related Surgical History: Reports: None Patient Rh Status: Unknown Abdominal Findings: Present: None Differential Diagnoses: UTI Review of Systems - Review Of Systems Constitutional: Reports: No symptoms Eyes: Reports: No symptoms Ears, Nose, Mouth, Throat: Reports: No symptoms Respiratory: Reports: No symptoms Cardiac: Reports: No symptoms GI: Reports: Abdominal pain : Reports: Burning, Dysuria, Frequency Musculoskeletal: Reports: No symptoms Skin: Reports: No symptoms Neurological: Reports: No symptoms Endocrine: Reports: No symptoms Hematologic/Lymphatic: Reports: No symptoms All Other Systems: Reviewed and Negative Past Medical History - Past Medical History Previously Healthy: Yes Endocrine: Reports: None Cardiovascular: Reports: None Respiratory: Reports: None Hematological: Reports: None Gastrointestinal: Reports: None Genitourinary: Reports: Kidney stones Neuro/Psych: Reports: None, Migraine (daily headache comes on upon awakening no unusual stress no sources of gas or co in home, better with fioricet(out), has not yet followed up using BC powders) Musculoskeletal: Reports: None Cancer: Reports: None Last Menstrual Period: hysterectomy - Surgical History General Surgical History: Reports: Hysterectomy, Other (kidney stone surgery ) - Family History Family History: Reports: Unknown - Social History Smoking Status: Current every day smoker, Light tobacco smoker Smoking Cessation Counseling Time: > 3 min - 10 min Hx Substance Use: No Alcohol Screening: None Physical Exam - Physical Exam Appearance: Well-appearing, No pain distress, Well-nourished Eyes: TITO, EOMI, Conjunctiva clear ENT: Ears normal, Nose normal, Oropharynx normal Respiratory: Airway patent, Breath sounds clear, Breath sounds equal, Respirations nonlabored Cardiovascular: RRR, Pulses normal, No rub, No murmur GI/: Soft, No masses, Bowel sounds normal, No Organomegaly, Tender Musculoskeletal: Normal strength, ROM intact, No edema, No calf tenderness Skin: Warm, Dry, Normal color Neurological: Sensation intact, Motor intact, Reflexes intact, Cranial nerves intact, Alert, Oriented Psychiatric: Affect appropriate, Mood appropriate Interpretation - Radiology Interpretation Radiology Interpretation By: Radiologist Radiology Results: Positive Exam Interpreted: CT Scan Critical Care Note - Critical Care Note Total Time (mins): 0 Course - Course Orders, Labs, Meds: Lab Review 11/12/16 18:05 Urine Color Yellow Urine Clarity Clear Urine pH 7.0 Ur Specific [place] 1.020 Urine Protein Negative Urine Glucose (UA) Negative Urine Ketones Negative Urine Blood Negative Urine Nitrite Negative Urine Bilirubin Negative Urine Urobilinogen 1.0 Ur Leukocyte Esterase Negative Orders Category Date Time Status UA [URINALYSIS C & S IF INDICATED] Stat LAB 11/12/16 18:[address] ABDOMEN/PELVIS WO CONTRAST Stat RADS 11/12/16 18:21 Completed Vital Signs: Temp Pulse Resp BP Pulse Ox 11/12/16 17:29 98.4 F 80 20 153/91 H 98 Departure - Departure Time of Disposition: 18:59 Disposition: HOME SELF-CARE Discharge Problem: Abdominal pain Instructions: Abdominal Pain (ED) Condition: Good Pt referred to PMD for follow-up: No Additional Instructions: multiple small kidney stones, might have passed one needs f/u with PMD so she can be put with gis specialist Allergies/Adverse Reactions: Allergies levofloxacin [From Levaquin] Adverse Reaction (Verified 11/12/16 17:36) ondansetron HCl [From Zofran (as hydrochloride)] Adverse Reaction (Verified 03/19 17:36) Home Medications: Ambulatory Orders 1 [No Reported Medications] 10/16/16 Disposition Discussed With: Patient, Family
[2016-11-12 18:14] LABS: BILIRUBIN,URINE Negative (NEGATIVE); KETONES,URINE Negative (NEGATIVE); LEUKOCYTE ESTERASE ,URINE Negative (NEGATIVE); NITRITE,URINE Negative (NEGATIVE); PROTEIN,URINE Negative (NEGATIVE); URINE, BLOOD Negative (NEGATIVE)
[2016-11-12 18:18] LABS: ADD URINE MICROSCOPIC NO
--- NOTE | 2016-11-12 18:52 | CT ---
EXAM: CT abdomen and pelvis without contrast HISTORY: Abdominal pain TECHNIQUE: Multi-slice transaxial helical with coronal and sagittal reformed images COMPARISON: CT abdomen/pelvis from 10/16/2016 FINDINGS: The lung bases are free of acute airspace or interstitial opacities. The heart size is no rmal. There are no pericardial or pleural effusions. A calcified granuloma is detected in the left l ower lobe. The hepatic attenuation is normal relative to the spleen. The gallbladder is contracted. There is no biliary dilatation. The pancreas adrenal glands are normal. The spleen has normal size and atte nuation. There are multiple nonobstructing calculi in both medullary pyramids measuring less than 1.3 mm. Th doc are too numerous to count. No ureterolithiasis or ureteral pelvicaliectasis are appreciated. A simple cyst is noted at the interpolar region of the left kidney and is unchanged. The nonopacified bladder is normal. The uterus is absent and there are no adnexal masses. The nonopacified bladder is normal. The intestines have normal caliber without evidence of obstruction or acute inflammation. The appen ej is normal. The abdominal aorta is minimally atherosclerotic. No lymphadenopathy or ascites are detected. The bones are free of suspicious osteolytic or osteoblastic lesions. IMPRESSION: 1. 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 Differential considera tions for etiologies include medullary sponge kidney, renal tubular acidosis, and hyperparathyroidis m. 2. Simple cyst, interpolar region of the left kidney. 3. No ureteral pelvicaliectasis or ureterolithiasis. 4. Normal appendix. Nonobstructive intestinal gas pattern. 5. No biliary dilatation.
== END 2016-11-12 19:03 | disposition home or self-care (01) ==
LOC: ED 17:27
DX: N20.0 Calculus of kidney (principal); F17.210 Nicotine dependence, cigarettes, uncomplicated; Z87.442 Personal history of urinary calculi
CPT/HCPCS: 81001; 99282

== ENCOUNTER 2016-12-15 21:44 | Emergency (ER) ==
[2016-12-15 21:45] VITALS: BMI 23.5
--- NOTE | 2016-12-15 21:47 | ED.PDOC ---
General ED Provider: Dr. MEHUL MARLEY-ER Chief Complaint: Toe Pain/Injury Stated Complaint: my toe hurts--i havent hurt it--its swollen around my nail and draining Time Seen by Physician: 21:46 Mode of Arrival: Walk-In Information Source: Patient, Family Primary Care Provider: AN BAUM Nursing and Triage Documentation Reviewed and Agree: Yes Skin Complaint Exam - Skin/Soft Tissue Complaint/Exam Onset/Duration: 3 dasy Symptoms Are: Still present Timing: Constant Initial Severity: Mild Current Severity: Mild Location: right 2nd toenail Character: Reports: Redness, Swelling, Raised, Painful Aggravating: Reports: None Alleviating: Reports: None Associated Signs and Symptoms: Reports: Drainage, Tenderness, Red streaks. Denies: Fever, Chills, Itching, Bruising, Joint swelling Recent Exposure to Others w/Similar Symptoms: No Skin Findings: Present: Erythema Differential Diagnoses: Cellulitis, Infection Review of Systems - Review Of Systems Constitutional: Reports: No symptoms Eyes: Reports: No symptoms Ears, Nose, Mouth, Throat: Reports: No symptoms Respiratory: Reports: No symptoms Cardiac: Reports: No symptoms GI: Reports: No symptoms : Reports: No symptoms Musculoskeletal: Reports: No symptoms Skin: Reports: No symptoms Neurological: Reports: No symptoms Endocrine: Reports: No symptoms Hematologic/Lymphatic: Reports: No symptoms All Other Systems: Reviewed and Negative Past Medical History - Past Medical History Previously Healthy: Yes Endocrine: Reports: None Cardiovascular: Reports: None Respiratory: Reports: None Hematological: Reports: None Gastrointestinal: Reports: None Genitourinary: Reports: Kidney stones Neuro/Psych: Reports: None, Migraine (daily headache comes on upon awakening no unusual stress no sources of gas or co in home, better with fioricet(out), has not yet followed up using BC powders) Musculoskeletal: Reports: None Cancer: Reports: None - Surgical History General Surgical History: Reports: Hysterectomy, Other (kidney stone surgery ) - Family History Family History: Reports: Unknown - Social History Smoking Status: Current every day smoker, Light tobacco smoker Hx Substance Use: No Alcohol Screening: None Lives: With family Physical Exam - Physical Exam Appearance: Well-appearing, No pain distress, Well-nourished Pain Distress: Mild Eyes: TITO, EOMI, Conjunctiva clear ENT: Ears normal, Nose normal, Oropharynx normal Neck: Supple Respiratory: Airway patent Cardiovascular: RRR, Pulses normal, No rub, No murmur GI/: Soft, Nontender, No masses, Bowel sounds normal, No Organomegaly Musculoskeletal: Normal strength Skin: Warm, Dry (noted right 2nd toe paronychia--noted erythema and tenderness-- no blue discoloration or necrosis seen) Neurological: Sensation intact, Motor intact, Reflexes intact, Cranial nerves intact, Alert, Oriented Psychiatric: Affect appropriate Critical Care Note - Critical Care Note Total Time (mins): 0 Departure - Departure Time of Disposition: 21:48 Disposition: HOME SELF-CARE Discharge Problem: Paronychia Instructions: Paronychia (ED) Condition: Good Pt referred to PMD for follow-up: Yes Additional Instructions: clindamycin 150mg tid x 7 days--f/u with an--consider podiatry referral Allergies/Adverse Reactions: Allergies levofloxacin [From Levaquin] Adverse Reaction (Verified 11/12/16 17:36) ondansetron HCl [From Zofran (as hydrochloride)] Adverse Reaction (Verified 03/19 17:36) Home Medications: Ambulatory Orders 1 [No Reported Medications] 10/16/16 Disposition Discussed With: Patient, Family
[2016-12-15 21:50] VITALS: BP 122/79; TEMP 98.6
== END 2016-12-15 21:55 | disposition home or self-care (01) ==
LOC: ED 21:44
DX: L03.031 Cellulitis of right toe (principal); F17.210 Nicotine dependence, cigarettes, uncomplicated
CPT/HCPCS: 99282

== ENCOUNTER 2016-12-20 16:27 | Emergency (ER) ==
[2016-12-20 16:27] VITALS: BMI 23.5
[2016-12-20 16:36] VITALS: BP 133/89; TEMP 98.8
--- NOTE | 2016-12-20 16:53 | ED.PDOC ---
General ED Provider: Dr. RUBA URBANO Chief Complaint: Abdominal Pain Stated Complaint: Seen here 5 days ago for toe infection, placed om clindamycin which she filled yesterday. The first dose caused nausea/vomiting and LUQ abd pain. Only vomited after taking med. Time Seen by Physician: 16:53 Mode of Arrival: Walk-In Information Source: Patient Exam Limitations: No limitations Primary Care Provider: ADEOLA BAUM Nursing and Triage Documentation Reviewed and Agree: Yes Past Medical History - Past Medical History Previously Healthy: Yes Endocrine: Reports: None Cardiovascular: Reports: None Respiratory: Reports: None Hematological: Reports: None Gastrointestinal: Reports: None Genitourinary: Reports: Kidney stones Neuro/Psych: Reports: None, Migraine (daily headache comes on upon awakening no unusual stress no sources of gas or co in home, better with fioricet(out), has not yet followed up using BC powders) Musculoskeletal: Reports: None Cancer: Reports: None Last Menstrual Period: n/a - Surgical History General Surgical History: Reports: Hysterectomy, Other (kidney stone surgery ) - Family History Family History: Reports: Unknown - Social History Smoking Status: Current every day smoker, Light tobacco smoker Hx Substance Use: No Alcohol Screening: None Course - Course Vital Signs: Temp Pulse Resp BP Pulse Ox 12/20/16 16:30 98.8 F 80 20 133/89 98 Departure - Departure Allergies/Adverse Reactions: Allergies levofloxacin [From Levaquin] Adverse Reaction (Verified 12/20/16 16:35) ondansetron HCl [From Zofran (as hydrochloride)] Adverse Reaction (Verified 16:35) Home Medications: Ambulatory Orders Clindamycin HCl 150 mg PO TID 12/20/16
--- NOTE | 2016-12-20 16:56 | ED.PDOC ---
General ED Provider: Dr. RUBA URBANO Chief Complaint: Abdominal Pain Stated Complaint: Seen here 5 days ago and dx'd with toe infection. Rx'd clindamycin. Filled Rx yesterday. First dose caused nausea/vomiting and RUQ pain. Time Seen by Physician: 16:54 Mode of Arrival: Walk-In Information Source: Patient Exam Limitations: No limitations Primary Care Provider: ADEOLA BAUM Nursing and Triage Documentation Reviewed and Agree: Yes GI Complaint Exam - Vomiting/Diarrhea Complaint/Exam Onset/Duration: last night Symptoms Are: Still present Episodes of Vomiting over last 24 Hours: 4 (onset after taking a clindamycin) Episodes of Diarrhea Over Last 24 Hours: 0 Initial Severity: Severe Current Severity: Moderate Character of Vomiting: Reports: Non-bilious Aggravating: Reports: Food (hasn't eaten but vomits whenever she takes a clindamycin) Alleviating: Reports: None Associated Signs and Symptoms: Reports: Fever (102.7 at home), Abdominal pain ( RUQ pain, occasionally radiating into chest), Cramping Related History: Reports: Recent antibiotics Last Oral Intake: other than meds, supper yesterday Last Bowel Movement: yesterday Recent Positive Test: No Use of Oral Contraceptives: No Use of Depoprovera: No Non-GI Risk Factors: Reports: None Surgical Obstruction Risk Factors: Reports: None Related Surgical History: Reports: None (moderate tenderness in RUQ/epigastrium) Abdominal Findings: Present: None (moderate tenderness in RUQ, no rebound or guarding, no other abnormality) Kussmaul Respirations Present: No Differential Diagnoses: Gastritis, Other (adverse reaction to medication) Review of Systems - Review Of Systems Constitutional: Reports: No symptoms Respiratory: Reports: No symptoms Cardiac: Reports: No symptoms GI: Reports: Abdominal pain, Nausea, Vomiting : Reports: No symptoms Musculoskeletal: Reports: No symptoms Skin: Reports: No symptoms Neurological: Reports: No symptoms All Other Systems: Reviewed and Negative Past Medical History - Past Medical History Previously Healthy: Yes Endocrine: Reports: None Cardiovascular: Reports: None Respiratory: Reports: None Hematological: Reports: None Gastrointestinal: Reports: None Genitourinary: Reports: Kidney stones Neuro/Psych: Reports: None, Migraine (daily headache comes on upon awakening no unusual stress no sources of gas or co in home, better with fioricet(out), has not yet followed up using BC powders) Musculoskeletal: Reports: None Cancer: Reports: None Last Menstrual Period: n/a - Surgical History General Surgical History: Reports: Hysterectomy, Other (kidney stone surgery ) - Family History Family History: Reports: Unknown - Social History Smoking Status: Current every day smoker, Light tobacco smoker Hx Substance Use: No Alcohol Screening: None Physical Exam - Physical Exam Appearance: Ill-appearing, Well-nourished Ill-appearing: Moderate Pain Distress: Moderate Eyes: TITO, EOMI, Conjunctiva clear ENT: Ears normal, Nose normal, Oropharynx normal Neck: Supple Respiratory: Airway patent, Breath sounds clear, Breath sounds equal, Respirations nonlabored Cardiovascular: RRR, Pulses normal, No rub, No murmur GI/: Soft, No masses, Bowel sounds normal, No Organomegaly, Tender (tender in RUQ) Musculoskeletal: Normal strength, ROM intact, No edema, No calf tenderness Skin: Warm, Dry, Normal color Neurological: Sensation intact, Motor intact, Reflexes intact, Cranial nerves intact, Alert, Oriented Psychiatric: Affect appropriate, Mood appropriate Critical Care Note - Critical Care Note Total Time (mins): 0 Course - Course Hematology/Chemistry: 12/20/16 17:15 12/20/16 17:15 Orders, Labs, Meds: Lab Review 12/20/16 12/20/16 12/20/16 17:10 17:15 17:15 WBC 7.53 RBC 3.96 L Hgb 12.8 Hct 36.2 L MCV 91.4 MCH 32.3 H MCHC 35.4 RDW Coeff of Rich 12.3 Plt Count 186 Immature Gran % (Auto) 0.1 Neut % (Auto) 50.9 Lymph % (Auto) 37.7 [place] % (Auto) 7.3 Eos % (Auto) 2.4 Baso % (Auto) 1.6 Immature Gran # (Auto) 0.0 Neut # 3.8 Lymph # 2.8 [place] # 0.6 Eos # 0.2 Baso # 0.1 Sodium 145 Potassium 3.3 L Chloride 109 H Carbon Dioxide 25 Anion Gap 14.3 BUN 13 Creatinine 0.67 Estimated GFR (MDRD) 99.00 BUN/Creatinine Ratio 19.40 Glucose 100 Lactic Acid Calcium 9.6 Total Bilirubin 0.13 AST 10 L ALT 11 L Alkaline Phosphatase 94 Total Protein 7.0 Albumin 3.3 L Globulin 3.7 Albumin/Globulin Ratio 0.89 Amylase 65 Lipase 62 Urine Color Yellow Urine Clarity Hazy Urine pH 6.5 Ur Specific [place] 1.020 Urine Protein Negative Urine Glucose (UA) Negative Urine Ketones Negative Urine Blood Negative Urine Nitrite Negative Urine Bilirubin Negative Urine Urobilinogen 0.2 Ur Leukocyte Esterase Negative Urine Microscopic WBC 2-5 Ur Squamous Epith Cells 5-10 Amorphous Sediment 1+ Urine Bacteria Trace 12/20/16 17:15 WBC RBC Hgb Hct MCV MCH MCHC RDW Coeff of Rich Plt Count Immature Gran % (Auto) Neut % (Auto) Lymph % (Auto) [place] % (Auto) Eos % (Auto) Baso % (Auto) Immature Gran # (Auto) Neut # Lymph # [place] # Eos # Baso # Sodium Potassium Chloride Carbon Dioxide Anion Gap BUN Creatinine Estimated GFR (MDRD) BUN/Creatinine Ratio Glucose Lactic Acid 11.6 Calcium Total Bilirubin AST ALT Alkaline Phosphatase Total Protein Albumin Globulin Albumin/Globulin Ratio Amylase Lipase Urine Color Urine Clarity Urine pH Ur Specific [place] Urine Protein Urine Glucose (UA) Urine Ketones Urine Blood Urine Nitrite Urine Bilirubin Urine Urobilinogen Ur Leukocyte Esterase Urine Microscopic WBC Ur Squamous Epith Cells Amorphous Sediment Urine Bacteria Orders Category Date Time Status AMYLASE Stat LAB 12/20/16 17:15 Completed CBC W/ AUTO DIFF Stat LAB 12/20/16 17:15 Completed COMPREHENSIVE METABOLIC PANEL Stat LAB 12/20/16 17:15 Completed LACTIC ACID Stat LAB 12/20/16 17:15 Completed LIPASE Stat LAB 12/20/16 17:15 Completed URINALYSIS C & S IF INDICATED Stat LAB 12/20/16 17:10 Completed Promethazine HCl [Phenergan 25 mg/ml Vial] MEDS 12/20/16 17:08 Discontinued 25 mg IM ONCE STA Medications Discontinued Medications Generic Name Dose Route Start Last Admin Trade Name Freq PRN Reason Stop Dose Admin Promethazine HCl 25 mg 12/20/16 17:08 12/20/16 17:18 Phenergan 25 Mg/Ml Vial IM 12/20/16 17:09 25 mg ONCE STA Administration Vital Signs: Temp Pulse Resp BP Pulse Ox 12/20/16 16:30 98.8 F 80 20 133/89 98 Departure - Departure Time of Disposition: 18:18 Disposition: HOME SELF-CARE Discharge Problem: Gastritis Instructions: Gastritis (ED) Condition: Good Pt referred to PMD for follow-up: No (if no better in 3 days, see doctor) Additional Instructions: Finish clindamycin. Call hospital in 3 days for results of urine culture Allergies/Adverse Reactions: Allergies levofloxacin [From Levaquin] Adverse Reaction (Verified 12/20/16 16:35) ondansetron HCl [From Zofran (as hydrochloride)] Adverse Reaction (Verified 16:35) Home Medications: Ambulatory Orders Clindamycin HCl 150 mg PO TID 12/20/16 Promethazine HCl [Phenergan Supp] 25 mg RC Q6H PRN #12 supp.rect 12/20/16 Disposition Discussed With: Patient
[2016-12-20] MEDS ORDERED: PHENERGAN 25 MG/ML VIAL IM STA (17:08)
[2016-12-20 17:21] LABS: BASOPHILS # (AUTO) 0.1 K/uL (0-0.2); BASOPHILS % (AUTO) 1.6 % (0.0-3.0); EOSINOPHILS # (AUTO) 0.2 K/ul (0.0-0.7); EOSINOPHILS % (AUTO) 2.4 % (0.0-7.0); HEMATOCRIT 36.2 % (37.0-47.0); HEMOGLOBIN 12.8 g/dl (12.0-16.0); IMMATURE GRANULOCYTE % (AUTO) 0.1 % (0.0-5.0); LYMPHOCYTES # (AUTO) 2.8 K/uL (0.60-3.4); LYMPHOCYTES % (AUTO) 37.7 (10.0-50.0); MEAN CORPUSCULAR HEMOGLOBIN 32.3 pg (27.0-31.0); MEAN CORPUSCULAR HGB CONC 35.4 (31.8-35.4); MEAN CORPUSCULAR VOLUME 91.4 fl (81.0-99.0); MONOCYTES # (AUTO) 0.6 K/uL (0.4-2.0); MONOCYTES % (AUTO) 7.3 (0-10); NEUTROPHILS # (AUTO) 3.8 K/ul (2.0-6.9); NEUTROPHILS % (AUTO) 50.9; PLATELET COUNT 186 10^3/uL (140-440); RED BLOOD COUNT 3.96 10^6/ul (4.20-5.40); WHITE BLOOD COUNT 7.53 K/ul (4.6-10.2)
[2016-12-20 17:23] LABS: BILIRUBIN,URINE Negative (NEGATIVE); KETONES,URINE Negative (NEGATIVE); LEUKOCYTE ESTERASE ,URINE Negative (NEGATIVE); NITRITE,URINE Negative (NEGATIVE); PH,URINE 6.5 (5-9); PROTEIN,URINE Negative (NEGATIVE); URINE, BLOOD Negative (NEGATIVE)
[2016-12-20 17:29] LABS: ADD URINE MICROSCOPIC YES
[2016-12-20 17:31] LABS: BACTERIA,URINE TRACE (NOT PRESENT)
[2016-12-20 17:42] LABS: ALBUMIN 3.3 g/dL (3.4-5.0); ALBUMIN/GLOBULIN RATIO 0.89; ANION GAP 14.3; BILIRUBIN,TOTAL 0.13 mg/dL (0.00-1.20); BUN/CREATININE RATIO 19.4; CALCIUM 9.6 mg/dL (8.2-10.2); CREATININE 0.67 mg/dL (0.60-1.30); POTASSIUM 3.3 mmol/L (3.5-5.10)
== END 2016-12-20 18:22 | disposition home or self-care (01) ==
LOC: ED 16:27
DX: K29.70 Gastritis, unspecified, without bleeding (principal); F17.210 Nicotine dependence, cigarettes, uncomplicated
CPT/HCPCS: 36415; 80053; 81001; 82150; 83605; 83690; 85025; 96372; 99283

== ENCOUNTER 2016-12-29 14:19 | Emergency (ER) ==
[2016-12-29 14:26] VITALS: BP 151/84; TEMP 100.5; BMI 22.8
--- NOTE | 2016-12-29 14:49 | ED.PDOC ---
General ED Provider: Dr. RUBA URBANO Chief Complaint: Chest Wall Injury/Pain Stated Complaint: Yesterday fell off top of 6 foot ladder while cleaning ceiling fan. Pain in left posterior and lateral chest wall. No LOC or head injury. Time Seen by Physician: 14:48 Mode of Arrival: Walk-In Information Source: Patient Primary Care Provider: ADEOLA BAUM Nursing and Triage Documentation Reviewed and Agree: Yes Musculoskeletal Complaint Exam - Back Pain Complaint/Exam Mechanism of Injury: Reports: Trauma Onset/Duration: 1 day Symptoms Are: Still present Timing: Constant Episodes Lasting: Hours Initial Severity: Moderate Current Severity: Severe Location: Reports: Diffuse Character: Reports: Aching Aggravating: Reports: Movements, Cough (deep breath, lifting/pushing/pulling) Alleviating: Reports: None TAD Risk Factors: Reports: None AAA Risk Factors: Reports: None Cauda Equina Risk Factors: Reports: None Epidural Abcess Risk Factors: Reports: None Related Surgical History: Reports: None Focal Tenderness: Yes (right lateral ond posterior chest wall) Paraspinal Muscle Tenderness: No Paraspinal Muscle Spasm: No Scoliosis: No Lordosis: No Kyphosis: No SLR Test: Right Negative, Left Negative Hip Motion Testing Pain: Right Negative, Left Negative Focal Weakness: Present: None Focal Sensory Loss: Present: None Gait: Present: Normal Differential Diagnoses: Fracture, Sprain (chest wall sprain) Review of Systems - Review Of Systems Constitutional: Reports: No symptoms Eyes: Reports: No symptoms Ears, Nose, Mouth, Throat: Reports: No symptoms Respiratory: Reports: No symptoms (pain with deep breath or cough) Cardiac: Reports: No symptoms GI: Reports: No symptoms : Reports: No symptoms Musculoskeletal: Reports: No symptoms, Back pain (pain in left posterior chest wall and left lateral chest wall) Skin: Reports: No symptoms Neurological: Reports: No symptoms Endocrine: Reports: No symptoms Hematologic/Lymphatic: Reports: No symptoms All Other Systems: Reviewed and Negative Past Medical History - Past Medical History Previously Healthy: Yes Endocrine: Reports: None Cardiovascular: Reports: None Respiratory: Reports: None Hematological: Reports: None Gastrointestinal: Reports: None Genitourinary: Reports: Kidney stones Neuro/Psych: Reports: None, Migraine (daily headache comes on upon awakening no unusual stress no sources of gas or co in home, better with fioricet(out), has not yet followed up using BC powders) Musculoskeletal: Reports: None Cancer: Reports: None Last Menstrual Period: hysterectomy - Surgical History General Surgical History: Reports: Hysterectomy, Other (kidney stone surgery ) - Family History Family History: Reports: Unknown - Social History Smoking Status: Current every day smoker, Light tobacco smoker Hx Substance Use: No Alcohol Screening: None Lives: With family - Immunizations Tetanus Shot up to Date: No Influenza Vaccine within 12 Months: No Pneumococcal Vaccine up to Date: No Physical Exam - Physical Exam Appearance: Well-appearing, Well-nourished Ill-appearing: None Pain Distress: Moderate Eyes: TITO, EOMI, Conjunctiva clear ENT: Ears normal, Nose normal, Oropharynx normal Neck: Supple Respiratory: Airway patent, Breath sounds clear, Breath sounds equal, Respirations nonlabored Cardiovascular: RRR, Pulses normal, No rub, No murmur GI/: Soft, Nontender, No masses, Bowel sounds normal, No Organomegaly Musculoskeletal: Normal strength, ROM intact, No edema, No calf tenderness ( does have left chest wall and lateral chest wall tenderness from approx T3 to T10. No deformities palpable. No crepitance.) Skin: Warm Neurological: Sensation intact, Motor intact, Reflexes intact, Cranial nerves intact, Alert, Oriented Psychiatric: Affect appropriate, Mood appropriate Critical Care Note - Critical Care Note Total Time (mins): 0 Course - Course Orders, Labs, Meds: Orders Category Date Time Status RIBS, UNILATERAL LEFT Stat RADS 12/29/16 16:00 Completed Vital Signs: Temp Pulse Resp BP Pulse Ox 12/29/16 14:20 100.5 F H 88 20 151/84 H 96 Departure - Departure Time of Disposition: 16:34 Disposition: HOME SELF-CARE Discharge Problem: Chest wall contusion Instructions: Chest Wall Pain (ED) Condition: Good Pt referred to PMD for follow-up: No (See docotor if no better in one month) Additional Instructions: Avoid heavy lifting, pushing, or pulling Allergies/Adverse Reactions: Allergies levofloxacin [From Levaquin] Adverse Reaction (Verified 12/29/16 14:26) ondansetron HCl [From Zofran (as hydrochloride)] Adverse Reaction (Verified 14:26) Home Medications: Ambulatory Orders Acetaminophen with Codeine [Tylenol #3 Tab] 1 tab PO Q4H PRN #20 tablet Disposition Discussed With: Patient
--- NOTE | 2016-12-29 16:25 | DI ---
EXAM: Four views of the left ribs HISTORY: Fall 6 feet to floor with chest wall pain. COMPARISON: CT chest 10/08/2015 and Chest x-ray 07/12/2011 FINDINGS: No displaced fracture or rib abnormality is identified. There is no lytic or blastic lesio n. Soft tissues are unremarkable. IMPRESSION: No acute abnormality or fracture of the left ribs.
== END 2016-12-29 16:56 | disposition home or self-care (01) ==
LOC: ED 14:19
DX: S20.212A Contusion of left front wall of thorax, initial encounter (principal); W11.XXXA Fall on and from ladder, initial encounter
CPT/HCPCS: 99283

== ENCOUNTER 2017-03-16 01:11 | Emergency (ER) ==
[2017-03-16 01:14] VITALS: BMI 23.5
[2017-03-16] MEDS: GI COCKTAIL PO STA (01:31)
[2017-03-16 01:42] LABS: BASOPHILS # (AUTO) 0.1 K/uL (0-0.2); BASOPHILS % (AUTO) 1.4 % (0.0-3.0); EOSINOPHILS # (AUTO) 0.1 K/ul (0.0-0.7); EOSINOPHILS % (AUTO) 1.7 % (0.0-7.0); HEMATOCRIT 37.6 % (37.0-47.0); HEMOGLOBIN 13.1 g/dl (12.0-16.0); IMMATURE GRANULOCYTE % (AUTO) 0.2 % (0.0-5.0); LYMPHOCYTES # (AUTO) 2.8 K/uL (0.60-3.4); LYMPHOCYTES % (AUTO) 44.8 (10.0-50.0); MEAN CORPUSCULAR HEMOGLOBIN 31.8 pg (27.0-31.0); MEAN CORPUSCULAR HGB CONC 34.8 (31.8-35.4); MEAN CORPUSCULAR VOLUME 91.3 fl (81.0-99.0); MONOCYTES # (AUTO) 0.5 K/uL (0.4-2.0); MONOCYTES % (AUTO) 8.3 (0-10); NEUTROPHILS # (AUTO) 2.8 K/ul (2.0-6.9); NEUTROPHILS % (AUTO) 43.6; PLATELET COUNT 175 10^3/uL (140-440); RED BLOOD COUNT 4.12 10^6/ul (4.20-5.40)
[2017-03-16] MEDS: DILAUDID 1 MG/ML SYRINGE IVP STA (01:59)
[2017-03-16] MEDS: PHENERGAN 25 MG/ML VIAL ONE (02:00)
[2017-03-16] MEDS: PHENERGAN 25 MG/ML VIAL 25 MG in SODIUM CHLORIDE 50 ML IV STA (02:00)
[2017-03-16] MEDS: SODIUM CHLORIDE 1,000 ML IV STA (02:00)
[2017-03-16 02:08] LABS: ALANINE AMINOTRANSFERASE < 6 U/L (12-78); ALBUMIN/GLOBULIN RATIO 1.03; ALKALINE PHOSPHATASE 98 U/L (42-98); AMYLASE 43 U/L (25-115); ANION GAP 15.3; ASPARTATE AMINO TRANSFERASE 10 U/L (15-37); BILIRUBIN,TOTAL 0.48 mg/dL (0.00-1.20); BLOOD UREA NITROGEN 23 mg/dL (7-18); BUN/CREATININE RATIO 28.39; CALCIUM 10.1 mg/dL (8.2-10.2); CARBON DIOXIDE 26 mmol/L (21-32); CHLORIDE 105 mmol/L (98-107); CREATINE KINASE 89 U/L; CREATININE 0.81 mg/dL (0.60-1.30); GLUCOSE 96 mg/dL (70-110); LIPASE 30 U/L (8-78); POTASSIUM 3.3 mmol/L (3.5-5.10); SODIUM 143 mmol/L (136-145); TOTAL PROTEIN 7.9 g/dL (6.4-8.2)
--- NOTE | 2017-03-16 03:07 | CT ---
EXAM: CTA thorax HISTORY: Chest pain COMPARISON: CTA thorax of 10/08/2015 FINDINGS: Contiguous axial images obtained through the thorax following the administration of utiliz ing 3-mm collimation. Sagittal, coronal and oblique reconstructions were imaged and reviewed. Sour ce images utilized create rotating 3-D MIP images.. The thoracic inlet is unremarkable.. There are subcentimeter hilar lymph nodes. The cardiac and silhouette is normal in size without pericardial ef fusion.. There is no evidence of pulmonary embolus. There is a calcified granuloma at the left lung base. There is no evidence of infiltrate or effusion.. Numerous renal calculi are noted bilaterally . IMPRESSION: No evidence of pulmonary embolus. Benign granulomatous changes. Bilateral nephrolithiasis.
[2017-03-16 04:51] VITALS: BP 107/70; TEMP 97.6
[2017-03-16 05:31] LABS: CREATINE KINASE 66 U/L
--- NOTE | 2017-03-16 05:56 | ED.PDOC ---
General ED Provider: Dr. MEHUL MARLEY-ER Chief Complaint: Chest Pain Stated Complaint: im having chest pain--inm under a lot of stress Time Seen by Physician: 01:15 Mode of Arrival: Walk-In Information Source: Patient, Family Exam Limitations: No limitations Primary Care Provider: ADEOLA BAUM Nursing and Triage Documentation Reviewed and Agree: Yes Cardiovascular Complaint Exam - Chest Pain Complaint/Exam Onset: Gradual Duration: several min Symptoms Are: Still present Initial Severity: Mild Current Severity: Mild Location: Reports: Diffuse Character: Reports: Dull, Aching, Heaviness, Pressure Aggravating: Reports: None Alleviating: Reports: None Associated Signs and Symptoms: Denies: Diaphoresis, Nausea, Vomiting, Fever, Palpitations, Cough, Hemoptysis, Back pain, Abdominal pain, Dizziness, Short of air, Calf pain, Calf swelling Related Surgical History: Reports: None History of Healthcare-Acquired Pneumonia: Reports: No AMI/ACS Risk Factors: Reports: None TAD Risk Factors: Reports: None Prior Care for this Complaint: No Recent Stress Test: No Recent Echo/LV Function: No JVD Present: No Subcutaneous Emphysema Present: No Diminshed Breath Sounds: No Reproducible Chest Wall Pain: No Bilateral Pulses Present: No Unequal Pulses Noted: No If Risk Factors for AMI/ACS Consider: EKG, Cardiac Enzymes If Risk Factors for PE Consider: Chest CT with contrast If Risk Factors for TAD Consider: Chest CT with contrast 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: No Differential Diagnoses: ACS, Chest Wall Pain, GI Diseasae, Pulmonary Embolism Quality Indicator For Non-Traumatic Chest Pain/Syncope: EKG Performed Review of Systems - Review Of Systems Constitutional: Reports: No symptoms Eyes: Reports: No symptoms Ears, Nose, Mouth, Throat: Reports: No symptoms Respiratory: Reports: No symptoms Cardiac: Reports: Chest pain GI: Reports: No symptoms : Reports: No symptoms Musculoskeletal: Reports: No symptoms Skin: Reports: No symptoms Neurological: Reports: Anxiety Endocrine: Reports: No symptoms Hematologic/Lymphatic: Reports: No symptoms All Other Systems: Reviewed and Negative Past Medical History - Past Medical History Previously Healthy: Yes Endocrine: Reports: None Cardiovascular: Reports: None Respiratory: Reports: None Hematological: Reports: None Gastrointestinal: Reports: None Genitourinary: Reports: Kidney stones Neuro/Psych: Reports: None, Migraine (daily headache comes on upon awakening no unusual stress no sources of gas or co in home, better with fioricet(out), has not yet followed up using BC powders) Musculoskeletal: Reports: None Cancer: Reports: None Last Menstrual Period: HYSTERECTOMY - Surgical History General Surgical History: Reports: Hysterectomy, Other (kidney stone surgery ) - Family History Family History: Reports: Unknown - Social History Smoking Status: Current every day smoker, Light tobacco smoker Hx Substance Use: No Alcohol Screening: Occasionally Lives: With family - Immunizations Tetanus Shot up to Date: Yes Influenza Vaccine within 12 Months: No Pneumococcal Vaccine up to Date: No Physical Exam - Physical Exam Appearance: Well-appearing, No pain distress, Well-nourished Eyes: TITO, EOMI, Conjunctiva clear ENT: Ears normal, Nose normal, Oropharynx normal Neck: Supple Respiratory: Airway patent, Breath sounds clear, Breath sounds equal, Respirations nonlabored Cardiovascular: RRR GI/: Soft Musculoskeletal: Normal strength Skin: Warm, Dry, Normal color Neurological: Sensation intact Psychiatric: Affect appropriate, Mood appropriate, Anxious Interpretation - Radiology Interpretation Radiology Interpretation By: Radiologist Radiology Results: Negative Exam Interpreted: CT Scan - EKG Interpretation Time of EKG #1: 01:15 Rate: Normal Rhythm: Sinus Ectopy: None Eek: NL Time of EKG #2: 05:00 Rate: Normal Rhythm: Sinus Ectopy: None Eek: NL ST Segment: Normal Re-Evaluation - Re-Evaluation Time of Re-Evaluation: 06:27 Status: Improved Vital Signs Stable: Yes Pain Level: 0 Appearance: NAD Lungs: Clear Skin: Warm and Dry Neuro: Alert and Oriented X3 CV: RRR Critical Care Note - Critical Care Note Total Time (mins): 0 Course - Course Hematology/Chemistry: 03/16/17 01:40 03/16/17 01:40 Orders, Labs, Meds: Lab Review 03/16/17 03/16/17 03/16/17 01:40 01:40 01:40 WBC 6.30 RBC 4.12 L Hgb 13.1 Hct 37.6 MCV 91.3 MCH 31.8 H MCHC 34.8 RDW Coeff of Rich 12.4 Plt Count 175 Immature Gran % (Auto) 0.2 Neut % (Auto) 43.6 Lymph % (Auto) 44.8 Frontier % (Auto) 8.3 Eos % (Auto) 1.7 Baso % (Auto) 1.4 Immature Gran # (Auto) 0.0 Neut # 2.8 Lymph # 2.8 Frontier # 0.5 Eos # 0.1 Baso # 0.1 Sodium 143 Potassium 3.3 L Chloride 105 Carbon Dioxide 26 Anion Gap 15.3 BUN 23 H Creatinine 0.81 Estimated GFR (MDRD) 80.00 BUN/Creatinine Ratio 28.39 Glucose 96 Calcium 10.1 Total Bilirubin 0.48 AST 10 L ALT < 6 L Alkaline Phosphatase 98 Total Creatine Kinase 89 Troponin I < 0.0100 Total Protein 7.9 Albumin 4.0 Globulin 3.9 Albumin/Globulin Ratio 1.03 Amylase 43 Lipase 30 TSH 2.575 Free T4 1.28 H 03/16/17 05:07 WBC RBC Hgb Hct MCV MCH MCHC RDW Coeff of Rich Plt Count Immature Gran % (Auto) Neut % (Auto) Lymph % (Auto) Frontier % (Auto) Eos % (Auto) Baso % (Auto) Immature Gran # (Auto) Neut # Lymph # Frontier # Eos # Baso # Sodium Potassium Chloride Carbon Dioxide Anion Gap BUN Creatinine Estimated GFR (MDRD) BUN/Creatinine Ratio Glucose Calcium Total Bilirubin AST ALT Alkaline Phosphatase Total Creatine Kinase 66 Troponin I < 0.0100 Total Protein Albumin Globulin Albumin/Globulin Ratio Amylase Lipase TSH Free T4 Orders Category Date Time Status EKG-(ED ONLY) Stat CARDIO 03/16/17 01:15 Completed EKG-(ED ONLY) Timed CARDIO 03/16/17 05:00 Completed NPO REMINDER: IMAGING ONCE CARE 03/16/17 01:17 Completed Hand Paint Mixer [ED SUPERVISOR FUR FLOOR WORKER APPLIED] .ONCE EMERGENCY 03/16/17 01:17 Active ED IV/MEDIPORT/POWERPORT .ONCE EMERGENCY 03/16/17 01:15 Active AMYLASE Stat LAB 03/16/17 01:40 Completed CBC W/ AUTO DIFF Stat LAB 03/16/17 01:40 Completed COMPREHENSIVE METABOLIC PANEL Stat LAB 03/16/17 01:40 Completed CREATINE KINASE Stat LAB 03/16/17 01:40 Completed CREATINE KINASE Timed LAB 03/16/17 05:07 Completed FREE T4 (FREE THYROXINE) Routine LAB 03/16/17 01:40 Completed LIPASE Stat LAB 03/16/17 01:40 Completed THYROID STIMULATING HORMONE Routine LAB 03/16/17 01:40 Completed TROPONIN I Stat LAB 03/16/17 01:40 Completed TROPONIN I Timed LAB 03/16/17 05:07 Completed 0.9 % Sodium Chloride [Saline Flush] MEDS 03/16/17 01:15 Ordered 1 syr IVF PRN PRN Hydromorphone HCl [Dilaudid 1 mg/ml Syringe] MEDS 03/16/17 01:16 Discontinued 1 mg IVP ONCE STA Mag-Al Plus//Lidocaine [Gi Cocktail] MEDS 03/16/17 01:16 Discontinued 30 ml PO ONCE STA Promethazine HCl [Phenergan 25 mg/ml Vial] MEDS 03/16/17 01:27 Discontinued 25 mg .ROUTE .STK-MED ONE Promethazine HCl [Phenergan 25 mg/ml Vial] 25 mg MEDS 03/16/17 01:16 Discontinued 0.9 % Sodium Chloride [Sodium Chloride] 50 ml IV ONCE Sodium Chloride 0.9% [Sodium Chloride] 1,000 ml MEDS 03/16/17 01:15 Active IV 100 mls/hr CT CHEST PE PROTOCOL Stat RADS 03/16/17 01:17 Completed Medications Generic Name Dose Route Start Last Admin Trade Name Freq PRN Reason Stop Dose Admin Sodium Chloride 1,000 mls @ 100 mls/hr 03/16/17 01:15 03/16/17 02:00 Sodium Chloride IV 03/16/17 11:14 100 mls/hr .Q10H STA Administration Sodium Chloride 1 syr 03/16/17 01:15 03/16/17 02:00 Saline Flush IVF 1 syr PRN PRN Administration To flush IV Discontinued Medications Generic Name Dose Route Start Last Admin Trade Name Freq PRN Reason Stop Dose Admin Al Hydroxide/Mg Hydroxide 30 ml 03/16/17 01:16 03/16/17 01:31 Gi Cocktail PO 03/16/17 01:17 30 ml ONCE STA Administration Hydromorphone HCl 1 mg 03/16/17 01:16 03/16/17 01:59 Dilaudid 1 Mg/Ml Syringe IVP 03/16/17 01:17 1 mg ONCE STA Administration Promethazine HCl 25 mg/ Sodium 51 mls @ 75 mls/hr 03/16/17 01:16 03/16/17 02: 00 Chloride IV 03/16/17 01:56 75 mls/hr ONCE STA Administration Vital Signs: Temp Pulse Resp BP Pulse Ox 03/16/17 04:50 97.6 F 61 13 107/70 96 03/16/17 01:11 97.5 F L 81 20 154/97 H 98 IVY Risk Score IVY Risk Score: Risk Score Odds of by 30D 0 0.1 (0.1-0.2) 1 0.3 (0.2-0.3) 2 0.4 (0.3-0.5) 3 0.7 (0.6-0.9) 4 1.2 (1.0-1.5) 5 2.2 (1.9-2.6) 6 3.0 (2.5-3.6) 7 4.8 (3.8-6.1) Departure - Departure Time of Disposition: 06:27 Disposition: HOME SELF-CARE Discharge Problem: Chest pain, Anxiety Condition: Good Pt referred to PMD for follow-up: Yes Additional Instructions: talk to your pcp about anxiety and further testing for chest pain Allergies/Adverse Reactions: Allergies levofloxacin [From Levaquin] Adverse Reaction (Verified 01/31/17 20:04) ondansetron HCl [From Zofran (as hydrochloride)] Adverse Reaction (Verified 20:04) Home Medications: Ambulatory Orders 1 [No Reported Medications] 03/16/17 Disposition Discussed With: Patient, Family
== END 2017-03-16 06:30 | disposition home or self-care (01) ==
LOC: ED 01:11
DX: R07.9 Chest pain, unspecified (principal); F41.9 Anxiety disorder, unspecified; F17.210 Nicotine dependence, cigarettes, uncomplicated
CPT/HCPCS: 36415; 80053; 82150; 82550; 83690; 84439; 84443; 84484; 85025; 93005; 93010; 96361; 96365; 96375; 99284

== ENCOUNTER 2017-07-03 11:16 | Emergency (ER) ==
[2017-07-03 11:20] VITALS: BP 147/93; TEMP 96; BMI 21.4
--- NOTE | 2017-07-03 12:29 | CT ---
EXAM: CT ABDOMEN AND PELVIS HISTORY: Low back pain with frequent urination TECHNIQUE: CT abdomen and pelvis without intravenous contrast. Images were reconstructed using 3 mm section thickness. Reformations were prepared. COMPARISON: 01/31/2017 FINDINGS: Redemonstration of multiple punctate calcifications within the kidneys consistent with renal calculi largest probably located on the left 3.3 mm. There is no convincing evidence of hydronephrosis. The re is no visible ureteral calculus. No perinephric fat stranding is seen. The urinary bladder appea rs normal. Within limits of this unenhanced exam, no focal hepatic or splenic lesions were identified. The gall bladder, pancreas and adrenal glands appeared normal. Mild atherosclerotic disease. Stomach is withi n normal limits. Normal appendix. Normal bowel gas pattern. No uterus is identified. No ascites or inflammatory inflammation of the abdominal fat. Abdominal wall is intact. The bones reveal no acut e abnormality in the lung bases are clear. IMPRESSION: Bilateral nephrolithiasis. No hydronephrosis or evidence of ureteral calculus.
--- NOTE | 2017-07-03 12:35 | ED.PDOC ---
General ED Provider: Dr. JERAMIE THOMPSON Chief Complaint: Abdominal Pain Stated Complaint: abdominal pain Time Seen by Physician: 11:20 (lower abdominal pain 2 days ) Mode of Arrival: Walk-In Information Source: Patient Exam Limitations: No limitations (no hematuria , dysuria negative trauma pain does not radiate ), Other (seen with nursing staff at all times . ) Primary Care Provider: ADEOLA BAUM Referred to ED by: Other (no chest pain) Nursing and Triage Documentation Reviewed and Agree: Yes Reviewed sepsis parameters & appropriate labs ordered?: Yes System Inflammatory Response Syndrome: Not Applicable Sepsis Protocol: For patient's 13 years and over: Temp is 96.8 and below OR 101 and greater Pulse >90 BPM Resp >20/minute Acutely Altered Mental Status Are patient's symptoms suggestive of a new infection, such as: -Pneumonia -Skin, Soft Tissue -Endocarditis -UTI -Bone, Joint Infection -Implantable Device -Acute Abdominal Infection -Wound Infection -Meningitis -Blood Stream Catheter Infection -Unknown System Inflammatory Response Syndrome: Not Applicable GI Complaint Exam - Abdominal Pain Complaint/Exam Onset: Gradual Duration: 2 days Symptoms Are: Still present Timing: Constant Initial Severity: Mild Current Severity: Mild Location of Pain: RLQ, LLQ Radiates To: Reports: Back Character: Reports: Aching Aggravating: Reports: None Alleviating: Reports: None Associated Signs and Symptoms: Reports: Cough. Denies: Diaphoresis, Fever, Chest pain, Dizziness, Back pain, Constipation, Blood in stool, Dysuria, Urinary frequency, Decreased urine output, Decreased appetite, Vaginal bleeding , Vaginal discharge, Nausea, Vomiting, Diarrhea, Sore throat, Decreased activity Related History: Reports: Similar episode AAA Risk Factors: Reports: Smoking Cardiac Risk Factors: Reports: None Ectopic Risk Factors: Reports: None Ovarian Torsion Risk Factors: Reports: Reproductive age, Hysterectomy Related Surgical History: Reports: Kidney Stones Patient Rh Status: Unknown Abdominal Findings: Present: None Review of Systems - Review Of Systems Constitutional: Reports: Malaise Eyes: Reports: No symptoms Ears, Nose, Mouth, Throat: Reports: No symptoms Respiratory: Reports: Cough Cardiac: Reports: No symptoms GI: Reports: Abdominal pain : Reports: No symptoms Musculoskeletal: Reports: No symptoms Skin: Reports: No symptoms Neurological: Reports: No symptoms Endocrine: Reports: No symptoms Hematologic/Lymphatic: Reports: No symptoms All Other Systems: Reviewed and Negative Past Medical History - Past Medical History Previously Healthy: Yes Endocrine: Reports: None Cardiovascular: Reports: None Respiratory: Reports: None Hematological: Reports: None Gastrointestinal: Reports: None Genitourinary: Reports: Kidney stones Neuro/Psych: Reports: None, Migraine (daily headache comes on upon awakening no unusual stress no sources of gas or co in home, better with fioricet(out), has not yet followed up using BC powders) Musculoskeletal: Reports: None Cancer: Reports: None Last Menstrual Period: hysterectomy - Surgical History General Surgical History: Reports: Hysterectomy, Other (kidney stone surgery ) - Family History Family History: Reports: Unknown - Social History Smoking Status: Current every day smoker, Light tobacco smoker Hx Substance Use: No Alcohol Screening: None - Immunizations Influenza Vaccine within 12 Months: No Pneumococcal Vaccine up to Date: No Physical Exam - Physical Exam Appearance: Well-appearing, No pain distress, Well-nourished Eyes: TITO, EOMI, Conjunctiva clear ENT: Ears normal, Nose normal, Oropharynx normal Respiratory: Airway patent, Breath sounds clear, Breath sounds equal, Respirations nonlabored Cardiovascular: RRR, Pulses normal, No rub, No murmur GI/: Soft, Nontender, No masses, Bowel sounds normal, No Organomegaly Musculoskeletal: Normal strength, ROM intact, No edema, No calf tenderness Skin: Warm, Dry, Normal color Neurological: Sensation intact, Motor intact, Reflexes intact, Cranial nerves intact, Alert, Oriented Psychiatric: Affect appropriate, Mood appropriate Interpretation - Radiology Interpretation Radiology Interpretation By: Radiologist Radiology Results: No acute changes Critical Care Note - Critical Care Note Total Time (mins): 0 Course - Course Hematology/Chemistry: 07/03/17 11:50 07/03/17 11:50 Orders, Labs, Meds: Lab Review 07/03/17 07/03/17 07/03/17 11:50 11:50 12:00 WBC 7.50 RBC 4.23 Hgb 13.0 Hct 38.9 MCV 92.0 MCH 30.7 MCHC 33.4 RDW Coeff of Rich 13.2 Plt Count 216 Neutrophils % (Manual) 66.0 Lymphocytes % (Manual) 30.0 Monocytes % (Manual) 4.0 Anisocytosis Not present Sodium 143 Potassium 4.1 Chloride 109 H Carbon Dioxide 22 Anion Gap 16.1 BUN 11 Creatinine 0.62 Estimated GFR (MDRD) 108.00 BUN/Creatinine Ratio 17.74 Glucose 93 Calcium 9.8 Total Bilirubin 0.2 AST 13 L ALT 11 L Alkaline Phosphatase 87 Total Protein 7.7 Albumin 3.5 Globulin 4.2 Albumin/Globulin Ratio 0.83 Amylase 59 Lipase 29 Urine Color Yellow Urine Clarity Clear Urine pH 8.5 Ur Specific [place] 1.020 Urine Protein 1+ Urine Glucose (UA) Negative Urine Ketones Negative Urine Blood Negative Urine Nitrite Negative Urine Bilirubin Negative Urine Urobilinogen 0.2 Ur Leukocyte Esterase Negative Urine Microscopic RBC 0-2 Ur Squamous Epith Cells 0-2 Urine Bacteria 1+ Urine Mucus 2+ Orders Category Date Time Status AMYLASE Stat LAB 07/03/17 11:50 Completed CBC W/ AUTO DIFF Stat LAB 07/03/17 11:50 Completed COMPREHENSIVE METABOLIC PANEL Stat LAB 07/03/17 11:50 Completed LIPASE Stat LAB 07/03/17 11:50 Completed MANUAL DIFFERENTIAL Stat LAB 07/03/17 11:50 Completed URINALYSIS C & S IF INDICATED Stat LAB 07/03/17 12:00 Completed URINE CULTURE Stat LAB 07/03/17 12:[address] ABDOMEN/PELVIS WO CONTRAST Stat RADS 07/03/17 11:41 Completed Vital Signs: Temp Pulse Resp BP Pulse Ox 07/03/17 11:16 96 F L 79 16 147/93 H 98 Departure - Departure Time of Disposition: 13:00 Disposition: HOME SELF-CARE Discharge Problem: Abdominal pain Instructions: Abdominal Pain (ED) Condition: Good Pt referred to PMD for follow-up: Yes IPMP verified?: No Additional Instructions: Please call your Family Physician as soon as possible to schedule a follow-up appointment.i suggest you see your doctor there is small amount of protein in your urine , there should be no protein in your urine . have your urine rechecked in a few days , do see your doctor . Allergies/Adverse Reactions: Allergies levofloxacin [From Levaquin] Adverse Reaction (Verified 07/03/17 11:22) ondansetron HCl [From Zofran (as hydrochloride)] Adverse Reaction (Verified 05/21 11:22) Home Medications: Ambulatory Orders 1 [No Reported Medications] 03/16/17 Disposition Discussed With: Patient, Family
== END 2017-07-03 12:52 | disposition home or self-care (01) ==
LOC: ED 11:16
DX: R10.32 Left lower quadrant pain (principal); R10.31 Right lower quadrant pain; R80.9 Proteinuria, unspecified; Z87.442 Personal history of urinary calculi; F17.210 Nicotine dependence, cigarettes, uncomplicated
CPT/HCPCS: 36415; 80053; 81001; 82150; 83690; 85007; 85025; 87086; 99283

== ENCOUNTER 2017-08-15 22:33 | Emergency (ER) ==
--- NOTE | 2017-08-15 22:36 | ED.PDOC ---
General ED Provider: Dr. MHEUL MARLEY-ER Chief Complaint: Tooth Problem Stated Complaint: my gums around my tooth is swollen Time Seen by Physician: 22:34 Mode of Arrival: Walk-In Information Source: Patient Exam Limitations: No limitations Primary Care Provider: ADEOLA BAUM Nursing and Triage Documentation Reviewed and Agree: Yes Reviewed sepsis parameters & appropriate labs ordered?: Yes System Inflammatory Response Syndrome: Not Applicable Sepsis Protocol: For patient's 13 years and over: Temp is 96.8 and below OR 101 and greater Pulse >90 BPM Resp >20/minute Acutely Altered Mental Status Are patient's symptoms suggestive of a new infection, such as: -Pneumonia -Skin, Soft Tissue -Endocarditis -UTI -Bone, Joint Infection -Implantable Device -Acute Abdominal Infection -Wound Infection -Meningitis -Blood Stream Catheter Infection -Unknown EENT Complaint Exam - Dental/Oral Complaint/Exam Mechanism of Injury: No known trauma Onset/Duration: several hours Symptoms Are: Still present Timing: Constant Initial Severity: Mild Current Severity: Mild Character: Reports: Dull Associated Signs and Symptoms: Reports: Swelling Related History: Reports: Similar episode, Previous tooth problem Tooth Findings: Present: Percussion tenderness, Gross decay Cervical Lymphadenopathy Present: No Facial Swelling Present: Yes Bleeding Present: No Septal Hematoma: No Foreign Body Present: No Dysphagia Present: No Drooling Present: No Asymmetrical Tonsillar Swelling Present: No Uvula Midline: Yes Margret-tonsillar Fluctuence: No Trismus Present: No Palatal Petechiae Present: No Scarlatinaform Rash Present: No Differential Diagnoses: Dental Abcess, Dental Caries Review of Systems - Review Of Systems Constitutional: Reports: No symptoms Eyes: Reports: No symptoms Ears, Nose, Mouth, Throat: Reports: No symptoms, Mouth pain, Mouth swelling Respiratory: Reports: No symptoms Cardiac: Reports: No symptoms GI: Reports: No symptoms : Reports: No symptoms Musculoskeletal: Reports: No symptoms Skin: Reports: No symptoms Neurological: Reports: No symptoms Endocrine: Reports: No symptoms Hematologic/Lymphatic: Reports: No symptoms All Other Systems: Reviewed and Negative Past Medical History - Past Medical History Previously Healthy: Yes Endocrine: Reports: None Cardiovascular: Reports: None Respiratory: Reports: None Hematological: Reports: None Gastrointestinal: Reports: None Genitourinary: Reports: Kidney stones Neuro/Psych: Reports: None, Migraine (daily headache comes on upon awakening no unusual stress no sources of gas or co in home, better with fioricet(out), has not yet followed up using BC powders) Musculoskeletal: Reports: None Cancer: Reports: None - Surgical History General Surgical History: Reports: Hysterectomy, Other (kidney stone surgery ) - Family History Family History: Reports: Unknown - Social History Smoking Status: Current every day smoker, Light tobacco smoker Hx Substance Use: No Alcohol Screening: None - Immunizations Influenza Vaccine within 12 Months: No Pneumococcal Vaccine up to Date: No Physical Exam - Physical Exam Appearance: Well-appearing, No pain distress, Well-nourished Pain Distress: Mild Eyes: TITO ENT: Ears normal, Nose normal, Oropharynx normal, Erythema (noted left upper gum is erythematous and swollen) Neck: Supple Respiratory: Airway patent Cardiovascular: RRR GI/: Soft, Nontender, No masses, Bowel sounds normal, No Organomegaly Musculoskeletal: Normal strength, ROM intact, No edema, No calf tenderness Skin: Warm, Dry, Normal color Neurological: Sensation intact, Motor intact, Reflexes intact, Cranial nerves intact, Alert, Oriented Psychiatric: Affect appropriate, Mood appropriate Critical Care Note - Critical Care Note Total Time (mins): 0 Departure - Departure Time of Disposition: 22:36 Disposition: HOME SELF-CARE Discharge Problem: Dental abscess Instructions: Dental Abscess (ED) Condition: Good Pt referred to PMD for follow-up: Yes IPMP verified?: No Additional Instructions: augmentin 875mg bid x 7 days, norco 5mg q 4hrs prn pain #10--f/u with dentist Allergies/Adverse Reactions: Allergies levofloxacin [From Levaquin] Adverse Reaction (Verified 07/03/17 11:22) ondansetron HCl [From Zofran (as hydrochloride)] Adverse Reaction (Verified 05/21 11:22) Home Medications: Ambulatory Orders Ketorolac Tromethamine [Toradol] 10 mg PO Q6HR 1 Days #4 tablet 07/03/17 Disposition Discussed With: Patient
[2017-08-15 22:39] VITALS: BP 134/97; TEMP 97.4; BMI 20.3
== END 2017-08-15 22:43 | disposition home or self-care (01) ==
LOC: ED 22:33
DX: K04.7 Periapical abscess without sinus (principal); K02.7 Dental root caries; F17.210 Nicotine dependence, cigarettes, uncomplicated
CPT/HCPCS: 99282

== ENCOUNTER 2017-09-24 19:01 | Emergency (ER) ==
[2017-09-24 19:19] VITALS: BP 154/93; TEMP 98.9; BMI 22.0
--- NOTE | 2017-09-24 19:22 | ED.PDOC ---
General ED Provider: Dr. MEHUL MARLEY-ER Chief Complaint: Tooth Problem Stated Complaint: mateo got a bad tooth and my gums are swollen Time Seen by Physician: 19:05 Mode of Arrival: Walk-In Information Source: Patient Exam Limitations: No limitations Primary Care Provider: ADEOLA BAUM Nursing and Triage Documentation Reviewed and Agree: Yes Does patient meet sepsis criteria?: No System Inflammatory Response Syndrome: Not Applicable Sepsis Protocol: For patient's 13 years and over: Temp is 96.8 and below OR 101 and greater Pulse >90 BPM Resp >20/minute Acutely Altered Mental Status Are patient's symptoms suggestive of a new infection, such as: -Pneumonia -Skin, Soft Tissue -Endocarditis -UTI -Bone, Joint Infection -Implantable Device -Acute Abdominal Infection -Wound Infection -Meningitis -Blood Stream Catheter Infection -Unknown EENT Complaint Exam - Dental/Oral Complaint/Exam Mechanism of Injury: No known trauma Onset/Duration: 2 days Symptoms Are: Still present Timing: Constant Initial Severity: Mild Current Severity: Moderate Character: Reports: Dull, Aching, Throbbing Aggravating: Reports: Heat, Cold, Chewing Alleviating: Reports: None Associated Signs and Symptoms: Reports: Swelling, Foul odor Related History: Reports: Previous tooth problem Tooth Findings: Present: Percussion tenderness, Gross decay, Gross caries, Abcess Cervical Lymphadenopathy Present: No Facial Swelling Present: No Bleeding Present: No Oropharynx Findings: Absent: Clots, Active bleeding Septal Hematoma: No Foreign Body Present: No Dysphagia Present: No Margret-tonsillar Fluctuence: No Trismus Present: No Palatal Petechiae Present: No Scarlatinaform Rash Present: No Review of Systems - Review Of Systems Constitutional: Reports: No symptoms Eyes: Reports: No symptoms Ears, Nose, Mouth, Throat: Reports: Mouth pain, Mouth swelling Respiratory: Reports: No symptoms Cardiac: Reports: No symptoms GI: Reports: No symptoms : Reports: No symptoms Musculoskeletal: Reports: No symptoms Skin: Reports: No symptoms Neurological: Reports: No symptoms Endocrine: Reports: No symptoms Hematologic/Lymphatic: Reports: No symptoms All Other Systems: Reviewed and Negative Past Medical History - Past Medical History Previously Healthy: Yes Endocrine: Reports: None Cardiovascular: Reports: None Respiratory: Reports: None Hematological: Reports: None Gastrointestinal: Reports: None Genitourinary: Reports: Kidney stones Neuro/Psych: Reports: None, Migraine (daily headache comes on upon awakening no unusual stress no sources of gas or co in home, better with fioricet(out), has not yet followed up using BC powders) Musculoskeletal: Reports: None Cancer: Reports: None Last Menstrual Period: 2008 HYST - Surgical History General Surgical History: Reports: Hysterectomy, Other (kidney stone surgery ) - Family History Family History: Reports: Unknown - Social History Smoking Status: Current every day smoker, Light tobacco smoker Hx Substance Use: No Alcohol Screening: None - Immunizations Tetanus Shot up to Date: Yes Influenza Vaccine within 12 Months: No Pneumococcal Vaccine up to Date: No Physical Exam - Physical Exam Appearance: Well-appearing, No pain distress, Well-nourished Pain Distress: Moderate Eyes: TITO ENT: Ears normal, Nose normal, Erythema (noted erythema , swollen gums and tenderness around left upper incisor) Neck: Supple Respiratory: Airway patent, Breath sounds clear, Breath sounds equal, Respirations nonlabored Cardiovascular: RRR, Pulses normal, No rub, No murmur GI/: Soft, Nontender, No masses, Bowel sounds normal, No Organomegaly Musculoskeletal: Normal strength Skin: Warm Neurological: Sensation intact, Motor intact, Reflexes intact, Cranial nerves intact, Alert, Oriented Psychiatric: Affect appropriate Critical Care Note - Critical Care Note Total Time (mins): 0 Course - Course Vital Signs: Temp Pulse Resp BP Pulse Ox 09/24/17 19:03 98.9 F 89 20 154/93 H 98 Departure - Departure Time of Disposition: 19:22 Disposition: HOME SELF-CARE Discharge Problem: Dental abscess Instructions: Dental Abscess (ED) Condition: Good Pt referred to PMD for follow-up: Yes IPMP verified?: No Additional Instructions: clindamycin 300mg tid x 7 days plus norco 7.5 q 4hrs prn pain #10--f/u with dentist anabel Allergies/Adverse Reactions: Allergies levofloxacin [From Levaquin] Adverse Reaction (Verified 09/24/17 19:10) Rash ondansetron HCl [From Zofran (as hydrochloride)] Adverse Reaction (Verified 19:10) UNSURE OF REACTION WHEN WAS IN ICU - NURSES TOLD HER SHE HAD A "REACTION" Home Medications: Ambulatory Orders 1 [No Reported Medications] 09/24/17 Disposition Discussed With: Patient
== END 2017-09-24 19:25 | disposition home or self-care (01) ==
LOC: ED 19:01
DX: K04.7 Periapical abscess without sinus (principal); K02.7 Dental root caries; F17.210 Nicotine dependence, cigarettes, uncomplicated
CPT/HCPCS: 99282

== ENCOUNTER 2017-11-19 12:00 | Emergency (ER) ==
[2017-11-19 12:05] VITALS: BP 147/88; TEMP 98.8; BMI 22.1
--- NOTE | 2017-11-19 12:23 | ED.PDOC ---
General ED Provider: Dr. MEHUL DAVIDSON Chief Complaint: Back Pain Stated Complaint: Onset of Lt Flank Pain with UTI symptoms this past Monday . Went to [facility] and evaluated-dx UTI and started on Bactrim DS. On Day 7 and no improvement. Has experienced Nausea and emesis-states has not been able to keep liquids down since Monday. States she was given percocet for pain control Time Seen by Physician: 13:15 Mode of Arrival: Walk-In Information Source: Patient Exam Limitations: No limitations Primary Care Provider: ADEOLA BAUM Nursing and Triage Documentation Reviewed and Agree: Yes Does patient meet sepsis criteria?: No System Inflammatory Response Syndrome: Not Applicable Sepsis Protocol: For patient's 13 years and over: Temp is 96.8 and below OR 101 and greater Pulse >90 BPM Resp >20/minute Acutely Altered Mental Status Are patient's symptoms suggestive of a new infection, such as: -Pneumonia -Skin, Soft Tissue -Endocarditis -UTI -Bone, Joint Infection -Implantable Device -Acute Abdominal Infection -Wound Infection -Meningitis -Blood Stream Catheter Infection -Unknown Complaint Exam - Complaint/Exam Patient Complains of: Reports: Pain Onset/Duration: 1 week Symptoms Are: Still present Timing: Intermittent Initial Severity: Moderate Current Severity: Moderate Location of Pain: Reports: Left, Flank Character: Reports: Sharp Aggravating: Reports: None Alleviating: Reports: None, Medications (percocet but still hurting) Associated Signs and Symptoms: Denies: Diaphoresis, Back pain, Fever, Hematuria , Dysuria, Constipation, Blood in stool, Rectal pain, Appetite change, Nausea, Vomiting, Decreased urine output, Increased urine frequency, Increased thirst, Decreased activity, Lethargy, Bubble bath use, Vaginal bleeding, Vaginal discharge, Genital swelling, Genital blisters, Retained foreign body Related History: Reports: Similar episode Ovarian Torsion Risk Factors: Reports: None Related Surgical History: Reports: None Abdominal Findings: Present: None Review of Systems - Review Of Systems Constitutional: Reports: No symptoms Eyes: Reports: No symptoms Ears, Nose, Mouth, Throat: Reports: No symptoms Respiratory: Reports: No symptoms Cardiac: Reports: No symptoms GI: Reports: No symptoms : Reports: No symptoms, Frequency Musculoskeletal: Reports: No symptoms, Back pain Skin: Reports: No symptoms Neurological: Reports: No symptoms Endocrine: Reports: No symptoms Hematologic/Lymphatic: Reports: No symptoms All Other Systems: Reviewed and Negative Past Medical History - Past Medical History Previously Healthy: Yes Endocrine: Reports: None Cardiovascular: Reports: None Respiratory: Reports: None Hematological: Reports: None Gastrointestinal: Reports: None Genitourinary: Reports: Kidney stones Neuro/Psych: Reports: None, Migraine (daily headache comes on upon awakening no unusual stress no sources of gas or co in home, better with fioricet(out), has not yet followed up using BC powders) Musculoskeletal: Reports: None Cancer: Reports: None Last Menstrual Period: hysterectomy - Surgical History General Surgical History: Reports: Hysterectomy, Other (kidney stone surgery ) - Family History Family History: Reports: Unknown - Social History Smoking Status: Current every day smoker, Light tobacco smoker Hx Substance Use: No Alcohol Screening: None - Immunizations Influenza Vaccine within 12 Months: No Pneumococcal Vaccine up to Date: No Physical Exam - Physical Exam Appearance: Well-appearing Ill-appearing: None Pain Distress: None Eyes: TITO, EOMI, Conjunctiva clear, Right pupil size ENT: Ears normal, Nose normal, Oropharynx normal Neck: Supple Respiratory: Airway patent, Breath sounds clear, Breath sounds equal, Respirations nonlabored Cardiovascular: RRR, Pulses normal, No rub, No murmur GI/: Soft, Nontender, No masses, Bowel sounds normal, No Organomegaly Musculoskeletal: Normal strength, ROM intact, No edema, No calf tenderness Skin: Warm, Dry, Normal color Neurological: Sensation intact, Motor intact, Reflexes intact, Cranial nerves intact, Alert, Oriented Interpretation - Radiology Interpretation Radiology Interpretation By: Radiologist Radiology Results: Positive Exam Interpreted: CT Scan Xray Comments: bilat non obstructive nephrolithiasis Radiology Interpretation By: Radiologist Re-Evaluation - Re-Evaluation Time of Re-Evaluation: 13:15 Status: Improved Lungs: Clear Skin: Warm and Dry Neuro: Alert and Oriented X3 CV: RRR Critical Care Note - Critical Care Note Total Time (mins): 0 Course - Course Hematology/Chemistry: 11/19/17 13:13 11/19/17 13:13 Orders, Labs, Meds: Lab Review 11/19/17 11/19/17 11/19/17 12:30 12:30 13:13 WBC 7.13 RBC 3.83 L Hgb 12.0 Hct 34.9 L MCV 91.1 MCH 31.3 H MCHC 34.4 RDW Coeff of Rich 13.0 Plt Count 261 Immature Gran % (Auto) 0.3 Neut % (Auto) 70.5 Lymph % (Auto) 22.4 [place] % (Auto) 4.8 Eos % (Auto) 0.7 Baso % (Auto) 1.3 Immature Gran # (Auto) 0.0 Neut # (Auto) 5.0 Lymph # (Auto) 1.6 [place] # (Auto) 0.3 L Eos # (Auto) 0.1 Baso # (Auto) 0.1 Sodium Potassium Chloride Carbon Dioxide Anion Gap BUN Creatinine Estimated GFR (MDRD) BUN/Creatinine Ratio Glucose Calcium Total Bilirubin AST ALT Alkaline Phosphatase Total Protein Albumin Globulin Albumin/Globulin Ratio Lipase Urine Color Yellow Urine Clarity Clear Urine pH 6.0 Ur Specific [place] 1.025 Urine Protein Negative Urine Glucose (UA) Negative Urine Ketones Negative Urine Blood 1+ Urine Nitrite Negative Urine Bilirubin Negative Urine Urobilinogen 0.2 Ur Leukocyte Esterase Negative Urine Microscopic RBC 2-5 Ur Squamous Epith Cells 10-20 Urine Opiates Screen Positive Ur Oxycodone Screen Negative Urine Methadone Screen Negative Ur Propoxyphene Screen Negative Ur Barbiturates Screen Negative U Tricyclic Antidepress Negative Ur Phencyclidine Scrn Negative Ur Amphetamine Screen Positive U Methamphetamines Scrn Positive U Benzodiazepines Scrn Negative Urine Cocaine Screen Negative U Cannabinoids Screen Negative 11/19/17 13:13 WBC RBC Hgb Hct MCV MCH MCHC RDW Coeff of Rich Plt Count Immature Gran % (Auto) Neut % (Auto) Lymph % (Auto) [place] % (Auto) Eos % (Auto) Baso % (Auto) Immature Gran # (Auto) Neut # (Auto) Lymph # (Auto) [place] # (Auto) Eos # (Auto) Baso # (Auto) Sodium 141 Potassium 3.7 Chloride 109 H Carbon Dioxide 22 Anion Gap 13.7 BUN 15 Creatinine 0.63 Estimated GFR (MDRD) 106.00 BUN/Creatinine Ratio 23.80 Glucose 97 Calcium 9.4 Total Bilirubin 0.2 AST 13 L ALT 8 L Alkaline Phosphatase 97 Total Protein 7.4 Albumin 3.2 L Globulin 4.2 Albumin/Globulin Ratio 0.76 Lipase 34 Urine Color Urine Clarity Urine pH Ur Specific [place] Urine Protein Urine Glucose (UA) Urine Ketones Urine Blood Urine Nitrite Urine Bilirubin Urine Urobilinogen Ur Leukocyte Esterase Urine Microscopic RBC Ur Squamous Epith Cells Urine Opiates Screen Ur Oxycodone Screen Urine Methadone Screen Ur Propoxyphene Screen Ur Barbiturates Screen U Tricyclic Antidepress Ur Phencyclidine Scrn Ur Amphetamine Screen U Methamphetamines Scrn U Benzodiazepines Scrn Urine Cocaine Screen U Cannabinoids Screen Orders Category Date Time Status CBC W/ AUTO DIFF Stat LAB 11/19/17 13:13 Completed CMP [COMPREHENSIVE METABOLIC PANEL] Stat LAB 11/19/17 13:13 Completed LIPASE Stat LAB 11/19/17 13:13 Completed UA [URINALYSIS C & S IF INDICATED] Stat LAB 11/19/17 12:30 Completed URINE DRUG SCREEN (RAPID FOR ED) [DRUG SCREEN, URINE, LAB 11/19/17 12:30 Completed RAPID] Stat Promethazine HCl [Phenergan 25 mg/ml Vial] MEDS 11/19/17 12:33 Discontinued 25 mg IM ONCE STA CT ABD/PEL WO RENAL STONE PROT Stat RADS 11/19/17 12:31 Completed Medications Discontinued Medications Generic Name Dose Route Start Last Admin Trade Name Freq PRN Reason Stop Dose Admin Promethazine HCl 25 mg 11/19/17 12:33 11/19/17 12:56 Phenergan 25 Mg/Ml Vial IM 11/19/17 12:34 25 mg ONCE STA Administration Vital Signs: Temp Pulse Resp BP Pulse Ox 11/19/17 12:00 98.8 F 89 16 147/88 H 98 Departure - Departure Time of Disposition: 13:35 Disposition: HOME SELF-CARE Discharge Problem: Flank pain, Nephrolithiasis, Positive urine drug screen Instructions: Kidney Stones (ED), Flank Pain (ED) Condition: Good Pt referred to PMD for follow-up: Yes IPMP verified?: No Additional Instructions: Force adequate oral fluids If pain worsens return to ER Contact local urologist for evaluation and determine if additional therapy required Take Toradol as needed Addressed patients positive drug screen for METHamphetamine State Prescriptions: Ketorolac Tromethamine [Toradol] 10 mg PO Q6H PRN #20 tablet PRN Reason: Flank pain Allergies/Adverse Reactions: Allergies levofloxacin [From Levaquin] Adverse Reaction (Verified 11/19/17 12:08) Rash ondansetron HCl [From Zofran (as hydrochloride)] Adverse Reaction (Verified 12:08) UNSURE OF REACTION WHEN WAS IN ICU - NURSES TOLD HER SHE HAD A "REACTION" Home Medications: Ambulatory Orders Ketorolac Tromethamine [Toradol] 10 mg PO Q6H PRN #20 tablet 11/19/17 Sulfamethoxazole/Trimethoprim [Bactrim 400-80 mg Tablet] 1 each PO BID 11/19/17 Disposition Discussed With: Patient
[2017-11-19] MEDS ORDERED: PHENERGAN 25 MG/ML VIAL IM STA (12:33)
--- NOTE | 2017-11-19 13:03 | CT ---
EXAM: CT scan of the abdomen and pelvis without contrast HISTORY: Flank pain TECHNIQUE: Helical imaging of the abdomen pelvis was performed without contrast. 3 mm thin axial im ages and coronal and sagittal reconstructions were provided for interpretation. Comparison 08/28/2016 CT scan of the abdomen and pelvis. FINDINGS: The liver, spleen, pancreas, adrenal glands appear normal. The proximal ureters are dk l size. Nonobstructing calculi are seen within the calyces of the kidneys bilaterally. The proximal ureters are normal size. The small and large bowel loops are normal caliber. No retroperitoneal ab normalities are seen. The helical images obtained through the pelvis demonstrate a normal appearance of the rectum, urinary bladder. There is no free fluid seen within the pelvis. The appendix was not seen. No definite in flammatory changes are seen in the right lower quadrant. There has been previous hysterectomy. Lung b ases are clear. No lytic or blastic lesions are seen within the osseous structures. IMPRESSION: No evidence of obstructing ureteral calculi. Nonobstructing nephrolithiasis seen within the kidneys bilaterally. There is no bowel obstruction.
== END 2017-11-19 13:57 | disposition home or self-care (01) ==
LOC: ED 12:00
DX: N20.0 Calculus of kidney (principal); F15.10 Other stimulant abuse, uncomplicated; Z87.442 Personal history of urinary calculi; F17.210 Nicotine dependence, cigarettes, uncomplicated
CPT/HCPCS: 36415; 74176; 80053; 80306; 81001; 83690; 85025; 96372; 99283

== ENCOUNTER 2017-12-15 12:35 | Emergency (ER) ==
[2017-12-15 12:39] VITALS: BP 142/95; TEMP 98.7; BMI 23.5
--- NOTE | 2017-12-15 13:07 | ED.PDOC ---
General ED Provider: Dr. JERAMIE THOMPSON Chief Complaint: Tooth Problem Stated Complaint: DENTAL PAIN Time Seen by Physician: 12:37 (PT HAPPY WITH ME MY SOKE CESSATION METHOD HAS MADE PT FROM SMKING NEARLY 2PK/DAY TO 3 /DAY) Mode of Arrival: Walk-In Information Source: Patient Primary Care Provider: ADEOLA BAUM Referred to ED by: Other (BUT PT HAS DENTAL PAIN SEE PHOTOS OF HER FACE MINIMAL EDEMA NOTED LEFT SIDE) Nursing and Triage Documentation Reviewed and Agree: Yes (FATOU LOCKHART RN PRESENT AT ALL TIMES ) Does patient meet sepsis criteria?: Yes If yes, has appropriate treatment been initiated?: No System Inflammatory Response Syndrome: Not Applicable Sepsis Protocol: For patient's 13 years and over: Temp is 96.8 and below OR 101 and greater Pulse >90 BPM Resp >20/minute Acutely Altered Mental Status Are patient's symptoms suggestive of a new infection, such as: -Pneumonia -Skin, Soft Tissue -Endocarditis -UTI -Bone, Joint Infection -Implantable Device -Acute Abdominal Infection -Wound Infection -Meningitis -Blood Stream Catheter Infection -Unknown EENT Complaint Exam - Dental/Oral Complaint/Exam Mechanism of Injury: No known trauma Onset/Duration: LEFT FACE EDEMA AND DENTAL PAINX 2 DAYS Symptoms Are: Still present Timing: Intermittent Initial Severity: Moderate Current Severity: Moderate Character: Reports: Dull Aggravating: Reports: Heat, Cold, Chewing Alleviating: Reports: None. Denies: OTC Meds Associated Signs and Symptoms: Reports: Swelling (SEE PHOTOS) Related History: Reports: Similar episode Cardiac Risk Factors: Reports: None Dental/Oral Surgical History: Reports: None Tooth Findings: Present: Gross caries Cervical Lymphadenopathy Present: No Facial Swelling Present: Yes (SEE PHOTO) Bleeding Present: Yes Oropharynx Findings: Absent: Clots, Active bleeding Septal Hematoma: No Foreign Body Present: No Dysphagia Present: No Drooling Present: No Asymmetrical Tonsillar Swelling Present: No Uvula Midline: Yes Margret-tonsillar Fluctuence: No Trismus Present: No Palatal Petechiae Present: No Scarlatinaform Rash Present: No Lesions: Absent: Lip, Gums, Tongue, Buccal Mucosa, Pharynx Exanthem: Absent: Lip, Gums, Tongue, Buccal Mucosa, Pharynx Vesicles: Absent: Lip, Gums, Tongue, Buccal Mucosa, Pharynx Teeth Picture: 1 - DENTAL PAIN Differential Diagnoses: Fractured Tooth Review of Systems - Review Of Systems Constitutional: Reports: No symptoms Eyes: Reports: No symptoms Ears, Nose, Mouth, Throat: Reports: No symptoms Respiratory: Reports: No symptoms Cardiac: Reports: No symptoms GI: Reports: No symptoms : Reports: No symptoms Musculoskeletal: Reports: No symptoms Skin: Reports: No symptoms Neurological: Reports: No symptoms Endocrine: Reports: No symptoms Hematologic/Lymphatic: Reports: No symptoms All Other Systems: Reviewed and Negative Past Medical History - Past Medical History Previously Healthy: Yes Endocrine: Reports: None Cardiovascular: Reports: None Respiratory: Reports: None Hematological: Reports: None Gastrointestinal: Reports: None Genitourinary: Reports: Kidney stones Neuro/Psych: Reports: None, Migraine (daily headache comes on upon awakening no unusual stress no sources of gas or co in home, better with fioricet(out), has not yet followed up using BC powders) Musculoskeletal: Reports: None Cancer: Reports: None Last Menstrual Period: none - Surgical History General Surgical History: Reports: Hysterectomy, Other (kidney stone surgery ) - Family History Family History: Reports: Unknown - Social History Smoking Status: Current every day smoker, Light tobacco smoker Hx Substance Use: No Alcohol Screening: None - Immunizations Influenza Vaccine within 12 Months: No Pneumococcal Vaccine up to Date: No Physical Exam - Physical Exam Appearance: Well-appearing, No pain distress, Well-nourished Eyes: TITO, EOMI, Conjunctiva clear ENT: Ears normal, Nose normal, Oropharynx normal Respiratory: Airway patent, Breath sounds clear, Breath sounds equal, Respirations nonlabored Cardiovascular: RRR, Pulses normal, No rub, No murmur GI/: Soft, Nontender, No masses, Bowel sounds normal, No Organomegaly Musculoskeletal: Normal strength, ROM intact, No edema, No calf tenderness Skin: Warm, Dry, Normal color Neurological: Sensation intact, Motor intact, Reflexes intact, Cranial nerves intact, Alert, Oriented Psychiatric: Affect appropriate, Mood appropriate Critical Care Note - Critical Care Note Total Time (mins): 0 Course - Course Vital Signs: Temp Pulse Resp BP Pulse Ox 12/15/17 12:36 98.7 F 97 H 18 142/95 H 98 Departure - Departure Time of Disposition: 13:10 Disposition: HOME SELF-CARE Discharge Problem: Toothache Instructions: Toothache (ED) Condition: Good Pt referred to PMD for follow-up: Yes IPMP verified?: No Additional Instructions: Please call your Family Physician as soon as possible to schedule a follow-up appointment. Allergies/Adverse Reactions: Allergies levofloxacin [From Levaquin] Adverse Reaction (Verified 12/15/17 12:39) Rash ondansetron HCl [From Zofran (as hydrochloride)] Adverse Reaction (Verified 12:39) UNSURE OF REACTION WHEN WAS IN ICU - NURSES TOLD HER SHE HAD A "REACTION" Home Medications: Ambulatory Orders 1 [No Reported Medications] 12/15/17 Disposition Discussed With: Patient
== END 2017-12-15 13:30 | disposition home or self-care (01) ==
LOC: ED 12:35
DX: K08.89 Other specified disorders of teeth and supporting structures (principal); R60.0 Localized edema; K02.7 Dental root caries; F17.210 Nicotine dependence, cigarettes, uncomplicated
CPT/HCPCS: 99282

== ENCOUNTER 2017-12-27 20:44 | Emergency (ER) ==
[2017-12-27 20:45] VITALS: BMI 23.5
[2017-12-27 20:48] VITALS: BP 173/115; TEMP 99.6
[2017-12-27] MEDS ORDERED: LIDOCAINE HCL 1% SDV IM STA (20:53)
[2017-12-27] MEDS ORDERED: TORADOL IM STA (20:53)
[2017-12-27] MEDS ORDERED: ROCEPHIN IM STA (20:53)
[2017-12-27] MEDS ORDERED: STADOL IM STA (20:53)
--- NOTE | 2017-12-27 20:56 | ED.PDOC ---
General ED Provider: Dr. MEHUL MARLEY-ER Chief Complaint: Tooth Problem Stated Complaint: my top and bottom teeth hjurt on the right Time Seen by Physician: 20:54 Mode of Arrival: Walk-In Information Source: Patient Exam Limitations: No limitations Primary Care Provider: ADEOLA BAUM Nursing and Triage Documentation Reviewed and Agree: Yes Does patient meet sepsis criteria?: No System Inflammatory Response Syndrome: Not Applicable Sepsis Protocol: For patient's 13 years and over: Temp is 96.8 and below OR 101 and greater Pulse >90 BPM Resp >20/minute Acutely Altered Mental Status Are patient's symptoms suggestive of a new infection, such as: -Pneumonia -Skin, Soft Tissue -Endocarditis -UTI -Bone, Joint Infection -Implantable Device -Acute Abdominal Infection -Wound Infection -Meningitis -Blood Stream Catheter Infection -Unknown EENT Complaint Exam - Dental/Oral Complaint/Exam Mechanism of Injury: No known trauma Onset/Duration: 2 4hrs Symptoms Are: Still present Timing: Constant Initial Severity: Mild Current Severity: Moderate Location: right upper molar and lower molar Character: Reports: Dull, Aching, Throbbing Aggravating: Reports: Heat, Cold, Chewing Associated Signs and Symptoms: Reports: Swelling Tooth Findings: Present: Percussion tenderness, Gross decay, Gross caries Cervical Lymphadenopathy Present: No Facial Swelling Present: No Bleeding Present: No Oropharynx Findings: Absent: Clots, Active bleeding Septal Hematoma: No Foreign Body Present: No Dysphagia Present: No Uvula Midline: Yes Margret-tonsillar Fluctuence: No Trismus Present: No Palatal Petechiae Present: No Scarlatinaform Rash Present: No Differential Diagnoses: Dental Abcess, Odontogenic Pain Review of Systems - Review Of Systems Constitutional: Reports: No symptoms Eyes: Reports: No symptoms Ears, Nose, Mouth, Throat: Reports: Mouth pain Respiratory: Reports: No symptoms Cardiac: Reports: No symptoms GI: Reports: No symptoms : Reports: No symptoms Musculoskeletal: Reports: No symptoms Skin: Reports: No symptoms Neurological: Reports: No symptoms Endocrine: Reports: No symptoms Hematologic/Lymphatic: Reports: No symptoms All Other Systems: Reviewed and Negative Past Medical History - Past Medical History Previously Healthy: Yes Endocrine: Reports: None Cardiovascular: Reports: None Respiratory: Reports: None Hematological: Reports: None Gastrointestinal: Reports: None Genitourinary: Reports: Kidney stones Neuro/Psych: Reports: None, Migraine (daily headache comes on upon awakening no unusual stress no sources of gas or co in home, better with fioricet(out), has not yet followed up using BC powders) Musculoskeletal: Reports: None Cancer: Reports: None Last Menstrual Period: na - Surgical History General Surgical History: Reports: Hysterectomy, Other (kidney stone surgery ) - Family History Family History: Reports: Unknown - Social History Smoking Status: Current every day smoker, Light tobacco smoker Hx Substance Use: No Alcohol Screening: None - Immunizations Tetanus Shot up to Date: Yes Influenza Vaccine within 12 Months: No Pneumococcal Vaccine up to Date: No Physical Exam - Physical Exam Appearance: Well-appearing Pain Distress: Mild Eyes: ITTO, EOMI, Conjunctiva clear ENT: Ears normal, Nose normal, Oropharynx normal (exam does confirm dental abscess ) Neck: Supple Respiratory: Airway patent, Breath sounds clear, Breath sounds equal, Respirations nonlabored Cardiovascular: RRR, Pulses normal, No rub, No murmur GI/: Soft, Nontender, No masses, Bowel sounds normal, No Organomegaly Musculoskeletal: Normal strength, ROM intact, No edema, No calf tenderness Skin: Warm, Dry, Normal color Neurological: Sensation intact, Motor intact, Reflexes intact, Cranial nerves intact, Alert, Oriented Psychiatric: Affect appropriate, Mood appropriate Critical Care Note - Critical Care Note Total Time (mins): 0 Course - Course Orders, Labs, Meds: Orders Category Date Time Status Butorphanol Tartrate [Stadol] MEDS 12/27/17 20:53 Stat 2 mg IM ONCE STA Ceftriaxone Sodium [Rocephin] MEDS 12/27/17 20:53 Stat 1 gm IM ONCE STA Ketorolac Tromethamine [Toradol] MEDS 12/27/17 20:53 Stat 60 mg IM ONCE STA Lidocaine HCl/Pf [Lidocaine HCl 1% Sdv] MEDS 12/27/17 20:53 Stat 2.1 ml IM ONCE STA Medications Generic Name Dose Route Start Last Admin Trade Name Freq PRN Reason Stop Dose Admin Butorphanol Tartrate 2 mg 12/27/17 20:53 Stadol IM 12/27/17 20:54 ONCE STA Ceftriaxone Sodium 1 gm 12/27/17 20:53 Rocephin IM 12/27/17 20:54 ONCE STA Ketorolac Tromethamine 60 mg 12/27/17 20:53 Toradol IM 12/27/17 20:54 ONCE STA Lidocaine HCl 2.1 ml 12/27/17 20:53 Lidocaine Hcl 1% Sdv IM 12/27/17 20:54 ONCE STA Vital Signs: Temp Pulse Resp BP Pulse Ox 12/27/17 20:45 99.6 F 93 H 16 173/115 H 98 Departure - Departure Time of Disposition: 20:56 Disposition: HOME SELF-CARE Discharge Problem: Dental abscess Instructions: Dental Abscess (ED) Condition: Good Pt referred to PMD for follow-up: No IPMP verified?: No Additional Instructions: augmentin 875mg bid x 7 days---nortab 7.5mg q 4hrs prn pain #10--f/u dentist anabel Allergies/Adverse Reactions: Allergies levofloxacin [From Levaquin] Adverse Reaction (Verified 12/27/17 20:49) Rash ondansetron HCl [From Zofran (as hydrochloride)] Adverse Reaction (Verified 20:49) UNSURE OF REACTION WHEN WAS IN ICU - NURSES TOLD HER SHE HAD A "REACTION" Home Medications: Ambulatory Orders 1 [No Reported Medications] 12/27/17 Disposition Discussed With: Patient
== END 2017-12-27 21:26 | disposition home or self-care (01) ==
LOC: ED 20:44
DX: K04.7 Periapical abscess without sinus (principal); K02.7 Dental root caries
CPT/HCPCS: 96372; 99282

== ENCOUNTER 2018-01-12 07:23 | Emergency (ER) ==
[2018-01-12 07:29] VITALS: BP 143/96; TEMP 97.9; BMI 22.1
--- NOTE | 2018-01-12 07:42 | ED.PDOC ---
General ED Provider: Dr. JERAMIE THOMPSON Chief Complaint: Tooth Problem Stated Complaint: dental pain Time Seen by Physician: 07:30 (seen with amber from adminstrations) Mode of Arrival: Walk-In Information Source: Patient Exam Limitations: No limitations Primary Care Provider: ADEOLA BAUM Nursing and Triage Documentation Reviewed and Agree: Yes Does patient meet sepsis criteria?: No If yes, has appropriate treatment been initiated?: No System Inflammatory Response Syndrome: Not Applicable (chronic dental pain has been unable to see a dentist) Sepsis Protocol: For patient's 13 years and over: Temp is 96.8 and below OR 101 and greater Pulse >90 BPM Resp >20/minute Acutely Altered Mental Status Are patient's symptoms suggestive of a new infection, such as: -Pneumonia -Skin, Soft Tissue -Endocarditis -UTI -Bone, Joint Infection -Implantable Device -Acute Abdominal Infection -Wound Infection -Meningitis -Blood Stream Catheter Infection -Unknown EENT Complaint Exam - Dental/Oral Complaint/Exam Mechanism of Injury: No known trauma Onset/Duration: weeks Symptoms Are: Still present Timing: Intermittent Initial Severity: Moderate Current Severity: Moderate Character: Reports: Aching Aggravating: Reports: Heat, Cold Alleviating: Reports: None Associated Signs and Symptoms: Denies: Swelling, Discharge, Fever, Foul odor, Foul taste in mouth Related History: Reports: Similar episode Dental/Oral Surgical History: Reports: None Tooth Findings: Present: Gross caries, Dental fracture Cervical Lymphadenopathy Present: No Facial Swelling Present: No Bleeding Present: No Oropharynx Findings: Absent: Clots, Active bleeding Septal Hematoma: No Foreign Body Present: No Dysphagia Present: No Drooling Present: No Asymmetrical Tonsillar Swelling Present: No Uvula Midline: Yes Margret-tonsillar Fluctuence: No Trismus Present: No Palatal Petechiae Present: No Scarlatinaform Rash Present: No Lesions: Absent: Lip, Gums, Tongue, Buccal Mucosa, Pharynx Exanthem: Absent: Lip, Gums, Tongue, Buccal Mucosa, Pharynx Vesicles: Absent: Lip, Gums, Tongue, Buccal Mucosa, Pharynx Teeth Picture: 1 - advance decay various levels Differential Diagnoses: Dental Caries Review of Systems - Review Of Systems Constitutional: Reports: No symptoms Eyes: Reports: No symptoms Ears, Nose, Mouth, Throat: Reports: No symptoms Respiratory: Reports: No symptoms Cardiac: Reports: No symptoms GI: Reports: No symptoms : Reports: No symptoms Musculoskeletal: Reports: No symptoms Skin: Reports: No symptoms Neurological: Reports: No symptoms Endocrine: Reports: No symptoms Hematologic/Lymphatic: Reports: No symptoms All Other Systems: Reviewed and Negative Past Medical History - Past Medical History Previously Healthy: Yes Endocrine: Reports: None Cardiovascular: Reports: None Respiratory: Reports: None Hematological: Reports: None Gastrointestinal: Reports: None Genitourinary: Reports: Kidney stones Neuro/Psych: Reports: None, Migraine (daily headache comes on upon awakening no unusual stress no sources of gas or co in home, better with fioricet(out), has not yet followed up using BC powders) Musculoskeletal: Reports: None Cancer: Reports: None Last Menstrual Period: hysterectomy - Surgical History General Surgical History: Reports: Hysterectomy, Other (kidney stone surgery ) - Family History Family History: Reports: Unknown - Social History Smoking Status: Current every day smoker, Light tobacco smoker Hx Substance Use: No Alcohol Screening: None - Immunizations Influenza Vaccine within 12 Months: No Pneumococcal Vaccine up to Date: No Physical Exam - Physical Exam Appearance: Well-appearing, No pain distress, Well-nourished Eyes: TITO, EOMI, Conjunctiva clear ENT: Ears normal, Nose normal, Oropharynx normal Respiratory: Airway patent, Breath sounds clear, Breath sounds equal, Respirations nonlabored Cardiovascular: RRR, Pulses normal, No rub, No murmur GI/: Soft, Nontender, No masses, Bowel sounds normal, No Organomegaly Musculoskeletal: Normal strength, ROM intact, No edema, No calf tenderness Skin: Warm, Dry, Normal color Neurological: Sensation intact, Motor intact, Reflexes intact, Cranial nerves intact, Alert, Oriented Psychiatric: Affect appropriate, Mood appropriate Critical Care Note - Critical Care Note Total Time (mins): 0 Course - Course Vital Signs: Temp Pulse Resp BP Pulse Ox 01/12/18 07:23 97.9 F 86 16 143/96 H 98 Departure - Departure Time of Disposition: 07:42 Disposition: HOME SELF-CARE Discharge Problem: Toothache Instructions: Toothache (ED) Condition: Good Pt referred to PMD for follow-up: Yes IPMP verified?: No Additional Instructions: Please call your Family Physician as soon as possible to schedule a follow-up appointment. Prescriptions: Amoxicillin 500 mg PO Q8HR #21 tablet Hydrocodone/Acetaminophen [[place] 10-325 Tablet] 1 each PO Q8HR #10 tablet Allergies/Adverse Reactions: Allergies levofloxacin [From Levaquin] Adverse Reaction (Verified 01/12/18 07:30) Rash ondansetron HCl [From Zofran (as hydrochloride)] Adverse Reaction (Verified 03/20 07:30) UNSURE OF REACTION WHEN WAS IN ICU - NURSES TOLD HER SHE HAD A "REACTION" Home Medications: Ambulatory Orders Amoxicillin 500 mg PO Q8HR #21 tablet 01/12/18 Hydrocodone/Acetaminophen [[place] 10-325 Tablet] 1 each PO Q8HR #10 tablet
== END 2018-01-12 07:45 | disposition home or self-care (01) ==
LOC: ED 07:23
DX: K08.89 Other specified disorders of teeth and supporting structures (principal); K02.7 Dental root caries; S02.5XXA Fracture of tooth (traumatic), initial encounter for closed fracture
CPT/HCPCS: 99282

== ENCOUNTER 2018-03-24 12:34 | Emergency (ER) | payer MEDICAID, OTHER ==
[2018-03-24 12:37] VITALS: BP 138/99; TEMP 100.1; BMI 21.9
--- NOTE | 2018-03-24 14:18 | ED.PDOC ---
General ED Provider: Dr. MEHUL DAVIDSON Chief Complaint: Tooth Problem Stated Complaint: Bad tooth ache. States was eatting a bread stick last night and injured her gum line-. Has multiple decayed teeth. Has extractions earlier this year. Going to [facility] for total extractions in 2019 Time Seen by Physician: 13:00 Mode of Arrival: Walk-In Information Source: Patient Exam Limitations: No limitations Primary Care Provider: ADEOLA BAUM Nursing and Triage Documentation Reviewed and Agree: Yes Does patient meet sepsis criteria?: No System Inflammatory Response Syndrome: Not Applicable Sepsis Protocol: For patient's 13 years and over: Temp is 96.8 and below OR 101 and greater Pulse >90 BPM Resp >20/minute Acutely Altered Mental Status Are patient's symptoms suggestive of a new infection, such as: -Pneumonia -Skin, Soft Tissue -Endocarditis -UTI -Bone, Joint Infection -Implantable Device -Acute Abdominal Infection -Wound Infection -Meningitis -Blood Stream Catheter Infection -Unknown EENT Complaint Exam - Dental/Oral Complaint/Exam Onset/Duration: 2 days Symptoms Are: Still present Timing: Constant Initial Severity: Moderate Current Severity: Moderate Location: upper gum line Character: Reports: Aching Aggravating: Reports: Chewing Alleviating: Reports: OTC Meds (plus tramadol) Associated Signs and Symptoms: Reports: Swelling Related History: Reports: Similar episode Cardiac Risk Factors: Reports: None Dental/Oral Surgical History: Reports: Periodontal Surgery (previouls rt molar extractions) Facial Swelling Present: No Bleeding Present: No Septal Hematoma: No Foreign Body Present: No Dysphagia Present: No Drooling Present: No Asymmetrical Tonsillar Swelling Present: No Uvula Midline: Yes Margret-tonsillar Fluctuence: No Trismus Present: No Palatal Petechiae Present: No Scarlatinaform Rash Present: No Lesions: Absent: Lip Exanthem: Absent: Lip Vesicles: Absent: Lip Differential Diagnoses: Dental Caries, Gingivitis, Periodontic Disease Review of Systems - Review Of Systems Constitutional: Reports: No symptoms Eyes: Reports: No symptoms Ears, Nose, Mouth, Throat: Reports: Mouth pain Respiratory: Reports: No symptoms Cardiac: Reports: No symptoms GI: Reports: No symptoms : Reports: No symptoms Musculoskeletal: Reports: No symptoms Skin: Reports: No symptoms Neurological: Reports: No symptoms Endocrine: Reports: No symptoms Hematologic/Lymphatic: Reports: No symptoms All Other Systems: Reviewed and Negative Past Medical History - Past Medical History Previously Healthy: Yes Endocrine: Reports: None Cardiovascular: Reports: None Respiratory: Reports: None Hematological: Reports: None Gastrointestinal: Reports: None Genitourinary: Reports: Kidney stones Neuro/Psych: Reports: None, Migraine (daily headache comes on upon awakening no unusual stress no sources of gas or co in home, better with fioricet(out), has not yet followed up using BC powders) Musculoskeletal: Reports: None Cancer: Reports: None Last Menstrual Period: none - Surgical History General Surgical History: Reports: Hysterectomy, Other (kidney stone surgery ) - Family History Family History: Reports: Unknown - Social History Smoking Status: Current every day smoker, Light tobacco smoker Hx Substance Use: No Alcohol Screening: None - Immunizations Influenza Vaccine within 12 Months: No Pneumococcal Vaccine up to Date: No Physical Exam - Physical Exam Appearance: Well-appearing, Well-nourished Ill-appearing: None Pain Distress: Moderate Eyes: TITO, EOMI, Conjunctiva clear ENT: Ears normal, Nose normal, Oropharynx normal Respiratory: Airway patent, Breath sounds clear, Breath sounds equal, Respirations nonlabored Cardiovascular: RRR, Pulses normal, No rub, No murmur GI/: Soft, Nontender, No masses, Bowel sounds normal, No Organomegaly Musculoskeletal: Normal strength, ROM intact, No edema, No calf tenderness Skin: Warm, Dry, Normal color Neurological: Sensation intact, Motor intact, Reflexes intact, Cranial nerves intact, Alert, Oriented Psychiatric: Affect appropriate, Mood appropriate Critical Care Note - Critical Care Note Total Time (mins): 30 Course - Course Vital Signs: Temp Pulse Resp BP Pulse Ox 03/24/18 12:34 100.1 F H 106 H 20 138/99 H 98 Departure - Departure Time of Disposition: 14:25 Disposition: HOME SELF-CARE Discharge Problem: Pain due to dental caries, Gingivitis Instructions: Toothache (ED) Condition: Fair Pt referred to PMD for follow-up: Yes (1 week -dentist) IPMP verified?: Yes (no recent rx) Additional Instructions: Rinse mouth as directed \\ Take meds Soft or pureed diet report or return if worsens Advil 200 mg 3 tabs every 6hrs for mild to mod pain [place] for severe pain Prescriptions: Hydrocodone Bit/Acetaminophen [[place] 7.5-325] 1 each PO Q6HR PRN #10 tablet PRN Reason: Dental pain Amoxicillin 875 mg PO BID #20 tablet Allergies/Adverse Reactions: Allergies levofloxacin [From Levaquin] Adverse Reaction (Verified 03/24/18 12:36) Rash ondansetron HCl [From Zofran (as hydrochloride)] Adverse Reaction (Verified 12:36) UNSURE OF REACTION WHEN WAS IN ICU - NURSES TOLD HER SHE HAD A "REACTION" Home Medications: Ambulatory Orders Amoxicillin 875 mg PO BID #20 tablet 03/24/18 Hydrocodone Bit/Acetaminophen [[place] 7.5-325] 1 each PO Q6HR PRN #10 tablet Disposition Discussed With: Patient
== END 2018-03-24 14:38 | disposition home or self-care (01) ==
LOC: ED 12:34
DX: K08.89 Other specified disorders of teeth and supporting structures (principal); K02.7 Dental root caries; K05.10 Chronic gingivitis, plaque induced; F17.210 Nicotine dependence, cigarettes, uncomplicated
CPT/HCPCS: 99282

== ENCOUNTER 2018-04-11 17:15 | Emergency (ER) ==
[2018-04-11 17:21] VITALS: BP 161/96; TEMP 99; BMI 23.6
[2018-04-11] MEDS ORDERED: TORADOL IM STA (17:40)
--- NOTE | 2018-04-11 17:43 | ED.PDOC ---
General ED Provider: Dr. JERAMIE THOMPSON Chief Complaint: Chest Wall Injury/Pain Stated Complaint: chest wall injury fall from a step ladder no neck pain no head injury Time Seen by Physician: 17:17 (seen with danis at all times no LOC NO NECK PAIN) Mode of Arrival: Walk-In Information Source: Patient Exam Limitations: No limitations Primary Care Provider: ADEOLA BAUM Nursing and Triage Documentation Reviewed and Agree: Yes Does patient meet sepsis criteria?: No System Inflammatory Response Syndrome: Not Applicable Sepsis Protocol: For patient's 13 years and over: Temp is 96.8 and below OR 101 and greater Pulse >90 BPM Resp >20/minute Acutely Altered Mental Status Are patient's symptoms suggestive of a new infection, such as: -Pneumonia -Skin, Soft Tissue -Endocarditis -UTI -Bone, Joint Infection -Implantable Device -Acute Abdominal Infection -Wound Infection -Meningitis -Blood Stream Catheter Infection -Unknown Trauma/Injury Complaint Exam - Trauma Complaint/Exam Location of Pain or Injury: Reports: Chest, Back (THORACIC) Mechanism of Injury: Reports: Fall Onset/Duration: TODAY NO VISIBLE SIGN OF INJURY GREGORIA WAS PRESENT DURING THE EXAM AT ALL JAZZY Symptoms Are: Still present Timing of Treatment: Immediate Initial Severity: Moderate Current Severity: Moderate Character: Reports: Aching Aggravating: Reports: Movement Alleviating: Reports: Rest Associated Signs and Symptoms: Denies: LOC, Confusion, Memory loss, Lethargy, Vomiting, Bleeding, Bruising, Swelling, Extremity disuse, Painful respiration, Hoarseness, Dysphagia, Hemoptysis, Significant blood loss Related Surgical History: Reports: None [place] Low Risk Criteria: No post-midline CS tender, No evidence of intoxicat., No Altered LOC, No focal neuro deficit, No distracting injuries Glascow Coma Scale (see protocol): 15 Trauma Findings: Absent: [place] eyes, Hemotympanum, Nasal deformity, Dental tenderness, Dental injury, Dental malocclusion, Neck tenderness, Neck spasm, SubQ Air, Crepitus, Airway obstructed, Trachea displaced, Labored respirations, Decreased breath sounds, Muffled heart sounds, Weak pulses, Absent pulses, Abdominal distention, Pelvic tenderness, Pelvic instability, Perineal blood Skin Findings: Present: Normal findings Differential Diagnoses: Fracture, Sprain, Strain Review of Systems - Review Of Systems Constitutional: Reports: No symptoms Eyes: Reports: No symptoms Ears, Nose, Mouth, Throat: Reports: No symptoms Respiratory: Reports: No symptoms Cardiac: Reports: Chest pain (INVOLVING RIGHT LATERAL CHEST WALL) GI: Reports: No symptoms : Reports: No symptoms Musculoskeletal: Reports: Back pain (THORACIC SPINE ONLY) Skin: Reports: No symptoms Neurological: Reports: No symptoms Endocrine: Reports: No symptoms Hematologic/Lymphatic: Reports: No symptoms All Other Systems: Reviewed and Negative Past Medical History - Past Medical History Previously Healthy: Yes Endocrine: Reports: None Cardiovascular: Reports: None Respiratory: Reports: None Hematological: Reports: None Gastrointestinal: Reports: None Genitourinary: Reports: Kidney stones Neuro/Psych: Reports: None, Migraine (daily headache comes on upon awakening no unusual stress no sources of gas or co in home, better with fioricet(out), has not yet followed up using BC powders) Musculoskeletal: Reports: None Cancer: Reports: None Last Menstrual Period: hysterectomy - Surgical History General Surgical History: Reports: Hysterectomy, Other (kidney stone surgery ) - Family History Family History: Reports: Unknown - Social History Smoking Status: Current every day smoker, Light tobacco smoker Hx Substance Use: No Alcohol Screening: None - Immunizations Influenza Vaccine within 12 Months: No Pneumococcal Vaccine up to Date: No Physical Exam - Physical Exam Appearance: Well-appearing, No pain distress, Well-nourished Eyes: TITO, EOMI, Conjunctiva clear ENT: Ears normal, Nose normal, Oropharynx normal Respiratory: Airway patent, Breath sounds clear, Breath sounds equal, Respirations nonlabored Cardiovascular: RRR, Pulses normal, No rub, No murmur GI/: Soft, Nontender, No masses, Bowel sounds normal, No Organomegaly Musculoskeletal: Normal strength, ROM intact, No edema, No calf tenderness Skin: Warm, Dry, Normal color Neurological: Sensation intact, Motor intact, Reflexes intact, Cranial nerves intact, Alert, Oriented Psychiatric: Affect appropriate, Mood appropriate Critical Care Note - Critical Care Note Total Time (mins): 0 Course - Course Orders, Labs, Meds: Orders Category Date Time Status URINE Stat LAB 04/11/18 17:40 Uncollected Ketorolac Tromethamine [Toradol] MEDS 04/11/18 17:40 Discontinued 60 mg IM ONCE STA CT CHEST W/O CONTRAST Stat RADS 04/11/18 17:[address] THORACIC SPINE W/O CONTRAST Stat RADS 04/11/18 17:40 Ordered Medications Discontinued Medications Generic Name Dose Route Start Last Admin Trade Name Vianey PRN Reason Stop Dose Admin Ketorolac Tromethamine 60 mg 04/11/18 17:40 Toradol IM 04/11/18 17:41 ONCE STA Vital Signs: Temp Pulse Resp BP Pulse Ox 04/11/18 17:16 99 F 86 20 161/96 H 98 Departure - Departure Time of Disposition: 17:44 Disposition: HOME SELF-CARE Discharge Problem: Chest wall pain, Chest injury Instructions: Chest Wall Pain (ED), Thoracic Pain (ED) Condition: Good Pt referred to PMD for follow-up: Yes IPMP verified?: No Additional Instructions: Please call your Family Physician as soon as possible to schedule a follow-up appointment. Prescriptions: Hydrocodone/Acetaminophen [[place] 10-325 Tablet] 1 each PO Q8HR #2 tablet Allergies/Adverse Reactions: Allergies levofloxacin [From Levaquin] Adverse Reaction (Verified 04/11/18 17:22) Rash ondansetron HCl [From Zofran (as hydrochloride)] Adverse Reaction (Verified 12/20 17:22) UNSURE OF REACTION WHEN WAS IN ICU - NURSES TOLD HER SHE HAD A "REACTION" Home Medications: Ambulatory Orders Hydrocodone/Acetaminophen [[place] 10-325 Tablet] 1 each PO Q8HR #2 tablet Disposition Discussed With: Patient
--- NOTE | 2018-04-11 18:55 | CT ---
Exam: CT of the chest without contrast History: Fall from ladder Technique: [address] of the chest without intravascular contrast FINDINGS: The lung windows show no pulmonary parenchymal abnormalities. No mediastinal abnormalitie s by noncontrast CT. No abnormalities of the chest wall soft tissues or bony thorax. Incidental mul tiple nonobstructing nephrolithiasis in the kidneys. No acute findings of the upper abdomen otherwis e. Impression: Negative chest Bilateral nonobstructing nephrolithiasis
--- NOTE | 2018-04-11 18:59 | CT ---
EXAM: CT thoracic spine without intravenous contrast 04/11/2018. Sagittal and coronal reformatted i mages obtained HISTORY: Pain COMPARISON: 04/11/2018 FINDINGS: Normal anatomic alignment is maintained. Vertebral bodies appear intact without evidence of fracture. The facet joints align normally Minimal degenerative endplate change. No bony encroachment on the spinal canal. No fracture or subluxation at any level. IMPRESSION: No acute osseous abnormality of the thoracic spine.
== END 2018-04-11 19:10 | disposition home or self-care (01) ==
LOC: ED 17:15
DX: R07.89 Other chest pain (principal); M54.6 Pain in thoracic spine; W11.XXXA Fall on and from ladder, initial encounter; F17.210 Nicotine dependence, cigarettes, uncomplicated
CPT/HCPCS: 96372; 99282

== ENCOUNTER 2018-05-09 08:21 | Emergency (ER) ==
[2018-05-09 08:26] VITALS: BP 157/96; TEMP 98.9; BMI 22.5
--- NOTE | 2018-05-09 08:38 | ED.PDOC ---
General ED Provider: Dr. SHERON SAMUEL Chief Complaint: Tooth Problem Stated Complaint: right upper bank dental caries and periodontal inflammation.No ulcers. Can feel pain and toughtness in right face.TMJ neg, Time Seen by Physician: 08:38 Mode of Arrival: Walk-In Information Source: Patient Exam Limitations: No limitations Primary Care Provider: ADEOLA BAUM Referred to ED by: Other Seen Within Last 72 Hours for Same Complaint By: Clinic Nursing and Triage Documentation Reviewed and Agree: Yes Does patient meet sepsis criteria?: No System Inflammatory Response Syndrome: Not Applicable Sepsis Protocol: For patient's 13 years and over: Temp is 96.8 and below OR 101 and greater Pulse >90 BPM Resp >20/minute Acutely Altered Mental Status Are patient's symptoms suggestive of a new infection, such as: -Pneumonia -Skin, Soft Tissue -Endocarditis -UTI -Bone, Joint Infection -Implantable Device -Acute Abdominal Infection -Wound Infection -Meningitis -Blood Stream Catheter Infection -Unknown Miscellaneous Complaint Exam - Physical Examination Complaint/Exam Onset/Duration: this week Symptoms Are: Still present Timing: Constant Episodes Lasting: Hours Initial Severity: Moderate Current Severity: Moderate Location: dental caries and periodontal hcangest without ulcers Aggravating: cold and hot fluids Alleviating: pain meds Associated Signs and Symptoms: ,Radiating to the r external ear, Related History: Reports: No other known history Specific Findings: several teeth missing and nultiple caries cavities Differential Diagnoses: Sinusitis,gingivitis without caries,sialoadenitis right Review of Systems - Review Of Systems Constitutional: Reports: No symptoms Eyes: Reports: No symptoms Ears, Nose, Mouth, Throat: Reports: Ear pain, Mouth pain, Loose teeth Respiratory: Reports: No symptoms Cardiac: Reports: No symptoms GI: Reports: No symptoms : Reports: No symptoms Musculoskeletal: Reports: No symptoms Skin: Reports: No symptoms Neurological: Reports: No symptoms Endocrine: Reports: No symptoms Hematologic/Lymphatic: Reports: No symptoms All Other Systems: Reviewed and Negative Past Medical History - Past Medical History Previously Healthy: Yes Endocrine: Reports: None Cardiovascular: Reports: None Respiratory: Reports: None Hematological: Reports: None Gastrointestinal: Reports: None Genitourinary: Reports: Kidney stones Neuro/Psych: Reports: None, Migraine (daily headache comes on upon awakening no unusual stress no sources of gas or co in home, better with fioricet(out), has not yet followed up using BC powders) Musculoskeletal: Reports: None Cancer: Reports: None Last Menstrual Period: hysterectomy - Surgical History General Surgical History: Reports: Hysterectomy, Other (kidney stone surgery ) - Family History Family History: Reports: Unknown - Social History Smoking Status: Current every day smoker, Light tobacco smoker Smoking Cessation Counseling Time: > 3 min - 10 min Hx Substance Use: No Alcohol Screening: None Lives: With family - Immunizations Tetanus Shot up to Date: Yes Influenza Vaccine within 12 Months: No Pneumococcal Vaccine up to Date: No Physical Exam - Physical Exam Appearance: Well-appearing, Thin Ill-appearing: None Pain Distress: Moderate Eyes: TITO ENT: Ears normal, Nose normal Neck: Supple Respiratory: Breath sounds diminished Cardiovascular: RRR GI/: Tender Musculoskeletal: Normal strength Skin: Warm Neurological: Sensation intact Psychiatric: Affect appropriate Re-Evaluation - Re-Evaluation Time of Re-Evaluation: 08:49 Vital Signs Stable: Yes Appearance: Other Lungs: Clear Skin: Warm and Dry Neuro: Alert and Oriented X3 CV: RRR Additional Comments: mild distress from dental viola and discomfort.Has orlyay a ental appt.in May Critical Care Note - Critical Care Note Total Time (mins): 0 Course - Course Vital Signs: Temp Pulse Resp BP Pulse Ox 05/09/18 08:22 98.9 F 98 H 16 157/96 H 96 Departure - Departure Time of Disposition: 08:51 Disposition: PLACED OBSERVATION Discharge Problem: Toothache Instructions: Dry Mouth (ED) Condition: Good Pt referred to PMD for follow-up: No (has a dental apointment this month) IPMP verified?: No Additional Instructions: Follow with a dental appointment as scheduled.Take antibiotic Clindamycin 300 mg PO cap did as prescribed for 10 days,Take [place] 5/325 tab for b reakthrough pain in Q 4-6 hour basis # disp.10 Script. Allergies/Adverse Reactions: Allergies levofloxacin [From Levaquin] Adverse Reaction (Verified 05/09/18 08:27) Rash ondansetron HCl [From Zofran (as hydrochloride)] Adverse Reaction (Verified 09/19 08:27) UNSURE OF REACTION WHEN WAS IN ICU - NURSES TOLD HER SHE HAD A "REACTION" Home Medications: Ambulatory Orders 1 [No Reported Medications] 05/09/18
== END 2018-05-09 09:16 | disposition home or self-care (01) ==
LOC: ED 08:21
DX: K08.89 Other specified disorders of teeth and supporting structures (principal); K02.7 Dental root caries; F17.210 Nicotine dependence, cigarettes, uncomplicated
CPT/HCPCS: 99282

== ENCOUNTER 2018-05-15 19:59 | Emergency (ER) ==
[2018-05-15 20:02] VITALS: BP 148/90; TEMP 98.9; BMI 21.9
--- NOTE | 2018-05-15 20:28 | ED.PDOC ---
General ED Provider: Dr. GEOVANNA HOLDEN Chief Complaint: Tooth Problem Stated Complaint: was seen last week for similar complaints. States could not tolorate Clindamycin due to gi symptoms. Has a dental apt next week. continues to have pain on the right upper canines area of broken tooth and inflamation. Time Seen by Physician: 20:20 Mode of Arrival: Walk-In Information Source: Patient Primary Care Provider: STANLEY KNOX Nursing and Triage Documentation Reviewed and Agree: Yes Does patient meet sepsis criteria?: No System Inflammatory Response Syndrome: Not Applicable Sepsis Protocol: For patient's 13 years and over: Temp is 96.8 and below OR 101 and greater Pulse >90 BPM Resp >20/minute Acutely Altered Mental Status Are patient's symptoms suggestive of a new infection, such as: -Pneumonia -Skin, Soft Tissue -Endocarditis -UTI -Bone, Joint Infection -Implantable Device -Acute Abdominal Infection -Wound Infection -Meningitis -Blood Stream Catheter Infection -Unknown EENT Complaint Exam - Dental/Oral Complaint/Exam Mechanism of Injury: No known trauma Onset/Duration: 1 week Symptoms Are: Still present Timing: Constant Initial Severity: Moderate Current Severity: Severe Location: right upper cannie teeth Character: Reports: Aching, Throbbing Aggravating: Reports: Heat, Cold, Chewing Alleviating: Reports: None Associated Signs and Symptoms: Reports: Swelling, Discharge, Foul odor, Foul taste in mouth Tooth Findings: Present: Gross decay, Dental fracture, Abcess Cervical Lymphadenopathy Present: No Facial Swelling Present: No Bleeding Present: No Septal Hematoma: No Foreign Body Present: No Dysphagia Present: No Drooling Present: No Asymmetrical Tonsillar Swelling Present: No Uvula Midline: No Margret-tonsillar Fluctuence: No Trismus Present: No Palatal Petechiae Present: No Scarlatinaform Rash Present: No Teeth Picture: 1 - broke to the pulp with cellulitis Differential Diagnoses: Dental Abcess, Dental Caries, Fractured Tooth Review of Systems - Review Of Systems Constitutional: Reports: No symptoms Eyes: Reports: No symptoms Ears, Nose, Mouth, Throat: Reports: Mouth pain Respiratory: Reports: No symptoms Cardiac: Reports: No symptoms GI: Reports: No symptoms : Reports: No symptoms Musculoskeletal: Reports: No symptoms Skin: Reports: No symptoms Neurological: Reports: No symptoms Endocrine: Reports: No symptoms Hematologic/Lymphatic: Reports: No symptoms All Other Systems: Reviewed and Negative Past Medical History - Past Medical History Previously Healthy: Yes Endocrine: Reports: None Cardiovascular: Reports: None Respiratory: Reports: None Hematological: Reports: None Gastrointestinal: Reports: None Genitourinary: Reports: Kidney stones Neuro/Psych: Reports: None, Migraine (daily headache comes on upon awakening no unusual stress no sources of gas or co in home, better with fioricet(out), has not yet followed up using BC powders) Musculoskeletal: Reports: None Cancer: Reports: None Last Menstrual Period: none - Surgical History General Surgical History: Reports: Hysterectomy, Other (kidney stone surgery ) - Family History Family History: Reports: Unknown - Social History Smoking Status: Current every day smoker, Heavy tobacco smoker Hx Substance Use: No Alcohol Screening: None - Immunizations Tetanus Shot up to Date: Yes Influenza Vaccine within 12 Months: No Pneumococcal Vaccine up to Date: No Physical Exam - Physical Exam Appearance: Ill-appearing Ill-appearing: Mild Pain Distress: Severe Eyes: TITO, EOMI ENT: Nose normal, Dry mucosa Neck: Supple Respiratory: Airway patent Cardiovascular: RRR, Pulses normal, No rub, No murmur GI/: Soft, Nontender, No masses, Bowel sounds normal, No Organomegaly Musculoskeletal: Normal strength, ROM intact, No edema, No calf tenderness Skin: Warm, Dry, Normal color Neurological: Alert Psychiatric: Anxious Critical Care Note - Critical Care Note Total Time (mins): 0 Course - Course Vital Signs: Temp Pulse Resp BP Pulse Ox 05/15/18 19:59 98.9 F 91 H 18 148/90 H 98 Departure - Departure Time of Disposition: 20:30 Disposition: HOME SELF-CARE Discharge Problem: Dental abscess Instructions: Dental Abscess (ED) Condition: Stable Pt referred to PMD for follow-up: Yes IPMP verified?: No Additional Instructions: Follow up with Dentist as scheduled. Take Amoxil as Prescribed Take Ibuprofen as prescribed for pain Prescriptions: Amoxicillin [Amoxil] 500 mg PO TID #30 capsule Ibuprofen [Motrin] 600 mg PO Q6H PRN #30 tablet PRN Reason: Analgesia Allergies/Adverse Reactions: Allergies levofloxacin [From Levaquin] Adverse Reaction (Verified 05/15/18 20:02) Rash ondansetron HCl [From Zofran (as hydrochloride)] Adverse Reaction (Verified 03/21 20:02) UNSURE OF REACTION WHEN WAS IN ICU - NURSES TOLD HER SHE HAD A "REACTION" Home Medications: Ambulatory Orders Amoxicillin [Amoxil] 500 mg PO TID #30 capsule 05/15/18 Ibuprofen [Motrin] 600 mg PO Q6H PRN #30 tablet 05/15/18 Disposition Discussed With: Patient
[2018-05-15] MEDS ORDERED: TYLENOL #3 TAB PO STA (20:50)
== END 2018-05-15 20:56 | disposition home or self-care (01) ==
LOC: ED 19:59
DX: K08.89 Other specified disorders of teeth and supporting structures (principal); K04.7 Periapical abscess without sinus; K02.7 Dental root caries; S02.5XXA Fracture of tooth (traumatic), initial encounter for closed fracture; F17.210 Nicotine dependence, cigarettes, uncomplicated
CPT/HCPCS: 99282

== ENCOUNTER 2018-07-08 13:20 | Emergency (ER) ==
[2018-07-08 13:25] VITALS: BP 135/92; TEMP 99.5
--- NOTE | 2018-07-08 13:40 | ED.PDOC ---
General ED Provider: Dr. JERAMIE THOMPSON Chief Complaint: Tooth Problem Stated Complaint: DENTAL PAIN Time Seen by Physician: 13:21 Mode of Arrival: Walk-In Information Source: Patient Exam Limitations: No limitations Primary Care Provider: ADEOLA BAUM Nursing and Triage Documentation Reviewed and Agree: Yes Does patient meet sepsis criteria?: No If yes, has appropriate treatment been initiated?: No System Inflammatory Response Syndrome: Not Applicable Sepsis Protocol: For patient's 13 years and over: Temp is 96.8 and below OR 101 and greater Pulse >90 BPM Resp >20/minute Acutely Altered Mental Status Are patient's symptoms suggestive of a new infection, such as: -Pneumonia -Skin, Soft Tissue -Endocarditis -UTI -Bone, Joint Infection -Implantable Device -Acute Abdominal Infection -Wound Infection -Meningitis -Blood Stream Catheter Infection -Unknown EENT Complaint Exam - Dental/Oral Complaint/Exam Mechanism of Injury: Unknown Onset/Duration: 1321 Symptoms Are: Still present Timing: Intermittent Initial Severity: Moderate Current Severity: Moderate Character: Reports: Dull Aggravating: Reports: Heat, Cold Alleviating: Reports: None Associated Signs and Symptoms: Denies: Swelling, Discharge, Fever, Foul odor, Foul taste in mouth Related History: Reports: Similar episode Cardiac Risk Factors: Reports: None Dental/Oral Surgical History: Reports: None Tooth Findings: Present: Gross caries Cervical Lymphadenopathy Present: No Facial Swelling Present: No Bleeding Present: No Oropharynx Findings: Absent: Clots, Active bleeding Septal Hematoma: No Foreign Body Present: No Dysphagia Present: No Drooling Present: No Asymmetrical Tonsillar Swelling Present: No Uvula Midline: Yes Margret-tonsillar Fluctuence: No Trismus Present: No Palatal Petechiae Present: No Scarlatinaform Rash Present: No Lesions: Absent: Lip, Gums, Tongue, Buccal Mucosa, Pharynx Exanthem: Absent: Lip, Gums, Tongue, Buccal Mucosa, Pharynx Vesicles: Absent: Lip, Gums, Tongue, Buccal Mucosa, Pharynx Teeth Picture: 1 - DECAY Differential Diagnoses: Fractured Tooth Review of Systems - Review Of Systems Constitutional: Reports: No symptoms Eyes: Reports: No symptoms Ears, Nose, Mouth, Throat: Reports: No symptoms Respiratory: Reports: No symptoms Cardiac: Reports: No symptoms GI: Reports: No symptoms : Reports: No symptoms Musculoskeletal: Reports: No symptoms Skin: Reports: No symptoms Neurological: Reports: No symptoms Endocrine: Reports: No symptoms Hematologic/Lymphatic: Reports: No symptoms All Other Systems: Reviewed and Negative Past Medical History - Past Medical History Previously Healthy: Yes Endocrine: Reports: None Cardiovascular: Reports: None Respiratory: Reports: None Hematological: Reports: None Gastrointestinal: Reports: None Genitourinary: Reports: Kidney stones Neuro/Psych: Reports: None, Migraine (daily headache comes on upon awakening no unusual stress no sources of gas or co in home, better with fioricet(out), has not yet followed up using BC powders) Musculoskeletal: Reports: None Cancer: Reports: None Last Menstrual Period: hysterectomy - Surgical History General Surgical History: Reports: Hysterectomy, Other (kidney stone surgery ) - Family History Family History: Reports: Unknown - Social History Smoking Status: Vaping Hx Substance Use: No Alcohol Screening: None - Immunizations Influenza Vaccine within 12 Months: No Pneumococcal Vaccine up to Date: No Physical Exam - Physical Exam Appearance: Well-appearing, No pain distress, Well-nourished Eyes: TITO, EOMI, Conjunctiva clear ENT: Ears normal, Nose normal, Oropharynx normal Respiratory: Airway patent, Breath sounds clear, Breath sounds equal, Respirations nonlabored Cardiovascular: RRR, Pulses normal, No rub, No murmur GI/: Soft, Nontender, No masses, Bowel sounds normal, No Organomegaly Musculoskeletal: Normal strength, ROM intact, No edema, No calf tenderness Skin: Warm, Dry, Normal color Neurological: Sensation intact, Motor intact, Reflexes intact, Cranial nerves intact, Alert, Oriented Psychiatric: Affect appropriate, Mood appropriate Critical Care Note - Critical Care Note Total Time (mins): 0 Course - Course Vital Signs: Temp Pulse Resp BP Pulse Ox 07/08/18 13:21 99.5 F 94 H 20 135/92 H 98 Departure - Departure Time of Disposition: 13:41 Disposition: HOME SELF-CARE Discharge Problem: Toothache Instructions: Toothache (ED) Condition: Good Pt referred to PMD for follow-up: Yes IPMP verified?: No Additional Instructions: Please call your Family Physician as soon as possible to schedule a follow-up appointment. Allergies/Adverse Reactions: Allergies levofloxacin [From Levaquin] Adverse Reaction (Verified 07/08/18 13:26) Rash ondansetron HCl [From Zofran (as hydrochloride)] Adverse Reaction (Verified 10/19 13:26) UNSURE OF REACTION WHEN WAS IN ICU - NURSES TOLD HER SHE HAD A "REACTION" Home Medications: Ambulatory Orders 1 [No Reported Medications] 07/08/18
== END 2018-07-08 13:50 | disposition home or self-care (01) ==
LOC: ED 13:20
DX: K08.89 Other specified disorders of teeth and supporting structures (principal); K02.7 Dental root caries
CPT/HCPCS: 99282

== ENCOUNTER 2018-11-06 | Emergency (ER) | END 2018-11-06 12:14 | disposition home or self-care (01) | CPT/HCPCS: 99282 ==

== ENCOUNTER 2021-11-21 14:57 | Observation (INO) ==
[2021-11-21] MEDS ORDERED: MORPHINE 2 MG/ML SYRINGE IVP STA (15:16)
[2021-11-21] MEDS ORDERED: SODIUM CHLORIDE 1,000 ML IV STA (15:16)
[2021-11-21] MEDS ORDERED: ROCEPHIN 1 GM/50 ML D5W 1 GM/50 ML BAG IV ONE (15:17)
[2021-11-21 15:29] LABS: BASOPHILS # (AUTO) 0.1 K/uL (0-0.2); EOSINOPHILS # (AUTO) 0.1 K/ul (0.0-0.7); EOSINOPHILS % (AUTO) 3.2 % (0.0-7.0); HEMOGLOBIN 12.6 g/dl (12.0-16.0); LYMPHOCYTES # (AUTO) 1.6 K/uL (0.60-3.4); MEAN CORPUSCULAR HEMOGLOBIN 31.5 pg (27.0-31.0); MEAN CORPUSCULAR HGB CONC 34.1 (31.8-35.4); MEAN CORPUSCULAR VOLUME 92.5 fl (81.0-99.0); MONOCYTES # (AUTO) 0.4 K/uL (0.4-2.0); MONOCYTES % (AUTO) 8.8 (0-10); NEUTROPHILS # (AUTO) 2.3 K/ul (2.0-6.9); PLATELET COUNT 232 10^3/uL (140-440); RDW COEFFICIENT OF VARIATION 12.2 % (11.6-14.8); WHITE BLOOD COUNT 4.43 K/ul (4.6-10.2)
--- NOTE | 2021-11-21 15:32 | ED.PDOC ---
General ED Provider: Dr. 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 manager--now i do Time Seen by Provider: 11/21/21 15:00 Mode of Arrival: Walk-In Information Source: Patient Exam Limitations: No limitations Nursing and Triage Documentation Reviewed and Agree: Yes Does patient meet sepsis criteria?: No System Inflammatory Response Syndrome: Not Applicable Sepsis Protocol: For patient's 13 years and over: Temp is 96.8 and below OR 101 and greater Pulse >90 BPM Resp >20/minute Acutely Altered Mental Status Are patient's symptoms suggestive of a new infection, such as: -Pneumonia -Skin, Soft Tissue -Endocarditis -UTI -Bone, Joint Infection -Implantable Device -Acute Abdominal Infection -Wound Infection -Meningitis -Blood Stream Catheter Infection -Unknown Complaint Exam UTI Female Complaint/Exam Patient Complains of: Reports Painful urination Onset/Duration: 3 days Symptoms Are: Still present Timing: Constant Initial Severity: Mild Current Severity: Moderate Location of Pain: Reports Right and Flank Associated Signs and Symptoms: Reports Fever, Chills and Flank pain Patient Rh Status: Unknown CVA Tenderness: Yes Suprapubic Tenderness: No Differential Diagnoses: Pyelonephritis and Ureteral Calculus Review of Systems Review Of Systems Constitutional: Reports No symptoms Eyes: Reports No symptoms Ears, Nose, Mouth, Throat: Reports No symptoms Respiratory: Reports No symptoms Cardiac: Reports No symptoms GI: Reports No symptoms : Reports Flank pain and Pain Musculoskeletal: Reports Back pain Skin: Reports No symptoms Neurological: Reports No symptoms Endocrine: Reports No symptoms Hematologic/Lymphatic: Reports No symptoms All Other Systems: Reviewed and Negative [facility] Social History Smoking and tobacco status: Current every day smoker Substance use type: does not use Female Reproductive History Menstrual Hx Hysterectomy: Yes Hx Tubal Ligation: No Physical Exam Physical Exam Appearance: Reports Well-appearing Ill-appearing: None Pain Distress: Mild Eyes: Reports TITO, EOMI and Conjunctiva clear ENT: Reports Ears normal, Nose normal and Oropharynx normal Neck: Supple Respiratory: Reports Airway patent, Breath sounds clear and Breath sounds equal Cardiovascular: Reports RRR, Pulses normal, No rub and No murmur GI/: Reports Soft, Nontender, No masses and Bowel sounds normal Musculoskeletal: Reports Normal strength, ROM intact, No edema and No calf tenderness Skin: Reports Warm, Dry and Normal color Neurological: Reports Sensation intact, Motor intact, Reflexes intact, Cranial nerves intact, Alert and Oriented Psychiatric: Reports Affect appropriate and Mood appropriate Interpretation Radiology Interpretation Radiology Interpretation By: Radiologist Radiology Results: Positive Exam Interpreted: CT Scan Critical Care Note Critical Care Note Total Critical Care Time (mins): 0 Course Course Hematology/Chemistry: 11/21/21 15:24 11/21/21 15:24 Orders, Labs, Meds: Lab Review 11/21/21 11/21/21 15:24 15:24 WBC 4.43 L RBC 4.00 L Hgb 12.6 Hct 37.0 MCV 92.5 MCH 31.5 H MCHC 34.1 RDW Coeff of Rich 12.2 Plt Count 232 Immature Gran % (Auto) 0.0 Neut % (Auto) 51.0 Lymph % (Auto) 35.0 Brantley % (Auto) 8.8 Eos % (Auto) 3.2 Baso % (Auto) 2.0 Neut # (Auto) 2.3 Lymph # (Auto) 1.6 Brantley # (Auto) 0.4 Eos # (Auto) 0.1 Baso # (Auto) 0.1 Immature Gran # (Auto) 0.0 Sodium 144.1 Potassium 3.67 Chloride 107.5 H Carbon Dioxide 27.8 Anion Gap 12.47 BUN 16.9 Creatinine 0.63 Estimated GFR (MDRD) 104.00 BUN/Creatinine Ratio 26.82 Glucose 118.8 H Calcium 9.81 Total Bilirubin 0.39 AST 24.3 ALT 18.0 Alkaline Phosphatase 92.1 Total Protein 7.83 Albumin 4.33 Globulin 3.50 Albumin/Globulin Ratio 1.23 Amylase 79.7 Lipase 91.6 Orders Category Date Time Status ED IV/MEDIPORT/POWERPORT .ONCE EMERGENCY 11/21/21 15:15 Active AMYLASE Stat LAB 11/21/21 15:24 Completed CBC W/ AUTO DIFF Stat LAB 11/21/21 15:24 Completed COMPREHENSIVE METABOLIC PANEL Stat LAB 11/21/21 15:24 Completed LIPASE Stat LAB 11/21/21 15:24 Completed URINALYSIS C & S IF INDICATED Stat LAB 11/21/21 15:15 Uncollected 0.9 % Sodium Chloride [Saline Flush] MEDS 11/21/21 15:15 Active 1 syr IVF PRN PRN Ceftriaxone/D5w 1 gm Premix [Rocephin 1 gm/50 ml D5w] MEDS 11/21/21 15:17 Discontinued 1 gm in 50 ml IV ONCE Morphine Sulfate [Morphine 2 mg/ml Syringe] MEDS 11/21/21 15:16 Discontinued 2 mg IVP ONCE STA Sodium Chloride 0.9% [Sodium Chloride] 1,000 ml MEDS 11/21/21 15:16 Active IV 100 mls/hr CT ABDOMEN/PELVIS WO CONTRAST Stat RADS 11/21/21 15:15 Completed Medications Generic Name Dose Route Start Last Admin Trade Name Freq PRN Reason Stop Dose Admin Sodium Chloride 1,000 mls @ 100 mls/hr 11/21/21 15:16 11/21/21 15:24 Sodium Chloride IV 11/22/21 01:15 100 mls/hr .Q10H STA Administration Sodium Chloride 1 syr 11/21/21 15:15 0.9% Sodium Chloride 10 Ml Disp.Syrin IVF PRN PRN To flush IV Discontinued Medications Generic Name Dose Route Start Last Admin Trade Name Freq PRN Reason Stop Dose Admin CEFTRIAXONE/D5W 1 GM PREMIX 1 gm in 50 mls @ 75 mls/hr 11/21/21 15:17 11/21/21 15:22 Rocephin 1 Gm/50 Ml D5w IV 11/21/21 15:56 75 mls/hr ONCE ONE Administration Morphine Sulfate 2 mg 11/21/21 15:16 11/21/21 15:22 Morphine Sulfate 2 Mg/Ml Syringe IVP 11/21/21 15:17 2 mg ONCE STA Administration Vital Signs: Temp Pulse Resp BP Pulse Ox 11/21/21 15:01 159.4 F H 76 16 172/113 H 98 Discharge Plan Discharge Patient Disposition: ADMITTED INPATIENT Discharge Problem: Pyelonephritis Prescriptions: No Action sulfamethoxazole-trimethoprim [Bactrim DS] 800-160 mg tablet 1 ea PO BID Qty: 20 0RF oxycodone-acetaminophen [Percocet] 5-325 mg tablet 1 tab PO Q8H PRN (Reason: severe pain (scale score 7-10)) Qty: 20 0RF naloxone 4 mg/actuation spray,non-aerosol 4 mg intranasal Q2M PRN (Reason: opioid overdose) Qty: 2 0RF Rx Instructions: spray 1 dose into ONE nostril; alternate nostrils w each dose until help arrives sennosides [Senna Lax] 8.6 mg tablet 8.6 mg PO BID Qty: 14 0RF Did you review [place] [employer] RESOURCE OFFICER?: No ED Provider: MEHUL STEIN Condition: Good Physician Progress Note: []
[2021-11-21 15:40] LABS: ALBUMIN 4.33 g/dL (3.5-5.0); ALKALINE PHOSPHATASE 92.1 U/L (38-126); AMYLASE 79.7 U/L (30-110); ASPARTATE AMINO TRANSFERASE 24.3 U/L (14-36); BILIRUBIN,TOTAL 0.39 mg/dL (0.2-1.3); BLOOD UREA NITROGEN 16.9 mg/dL (7-17); CALCIUM 9.81 mg/dL (8.4-10.2); CARBON DIOXIDE 27.8 mmol/L (22-30.0); CHLORIDE 107.5 mmol/L (98-107); CREATININE 0.63 mg/dL (0.60-1.30); GLUCOSE 118.8 mg/dL (74-106); LIPASE 91.6 U/L (23-300); POTASSIUM 3.67 mmol/L (3.5-5.1); SODIUM 144.1 mmol/L (134.5-145); TOTAL PROTEIN 7.83 g/dL (6.3-8.2)
--- NOTE | 2021-11-21 16:35 | CT ---
EXAM: Noncontrast CT of the abdomen and pelvis. HISTORY: Right-side abdominal pain. COMPARISON: 11/18/2021 TECHNIQUE: Contiguous axial images at 2.5 mm intervals were obtained from lung bases through the pel vis. No contrast was given. Coronal reformats were reviewed. FINDINGS: The study is limited without contrast. CHEST: LUNG BASES: The lung bases show no lobar consolidation or effusion. HEART: The heart size is within normal limits. ABDOMEN: Evaluation of the soft tissue organs is limited without contrast. LIVER: Noncontrast images of the liver show no solid mass lesion or intrahepatic ductal dilatation. BILIARY: The gallbladder is normally distended. No gallstones are noted. No pericholecystic fluid or inflammation. The common bile duct is normal. SPLEEN: The spleen is unremarkable. PANCREAS: The pancreas shows no mass lesion or peripancreatic inflammation. ADRENAL GLANDS: The adrenal glands are normal. RENAL: Multiple bilateral renal stones are seen which are similar to the previous study. There are no obstructing ureteral stones. No solid mass lesions are identified. There is a cyst in the mid l eft kidney measuring up to 3.5 cm. AORTA: Moderate aortic calcifications are seen. No aneurysm is identified. RETROPERITONEUM: There is no retroperitoneal or mesenteric adenopathy. BOWEL: The bowel is unopacified. There is no obstruction or inflammatory change. There is no free fluid or free air. No significant inflammatory changes are seen. The appendix is identified and is normal. The rectum is mildly distended. No obstructing mass lesion. No significant diverticulo sis. PELVIS: BLADDER: The bladder is well distended and appears normal. GENITOURINARY STRUCTURES: The uterus and ovaries are not seen. OSSEOUS STRUCTURES: The osseous structures are normal for age. IMPRESSION 1. Multiple bilateral renal stones. No obstructing ureteral stones are identified. 2. The appendix is normal. All CT scans are performed using dose optimization techniques as appropriate to the performed exam an d include at least one of the following: Automated exposure control, adjustment of the mA and/or kV according t o size, and the use of iterative reconstruction technique.
[2021-11-21] MEDS ORDERED: PHENERGAN 25 MG/ML VIAL 12.5 MG in SODIUM CHLORIDE 50 ML IV PRN (16:44)
--- NOTE | 2021-11-21 16:58 | PCM ---
Chief Complaint Chief Complaint: im still hurting--they were going to admit me the other day but i didnt have a bisque kiln placer--im still hurting on the right side History of Present Illness History of Present Illness: July has been exp right flank pain with fever and chills for several days. was seen 3 days ago and found to have pyelonephritis. admission was offered but she declined. She now has persistent pain and fever and chills with urine culture positive for e coli. Her ct scan did not show obstruction and appendix was thought to be normal. Review of Systems Constitutional: Reports Fever, Chills, Fatigue and Loss of appetite Eyes: Reports No symptoms Ears: Reports No symptoms Nose: Reports No symptoms Throat: Reports No symptoms Mouth: Reports No symptoms Respiratory: Reports No symptoms Cardiovascular: Reports No symptoms Gastrointestinal: Reports No symptoms Genitourinary: Reports dysuria and flank pain Neurological: Reports No symptoms Musculoskeletal: Reports No symptoms Skin: Reports No symptoms Immunology: Reports No symptoms Hematology: Reports No symptoms Endocrine: Reports No symptoms Psychiatric: Reports No symptoms Habits: Reports Tobacco use Allergies Allergies Allergy/AdvReac Type Severity Reaction Status Date / Time clindamycin AdvReac Chest Verified 11/21/21 16:56 Tightness levofloxacin [From Levaquin] AdvReac Rash Verified 11/21/21 16:56 ondansetron HCl AdvReac Nausea Verified 11/21/21 16:56 [From Zofran (as hydrochloride)] PFSH Social History Smoking and tobacco status: Current every day smoker Substance use type: does not use Medications Medications: Medications Generic Name Dose Route Start Last Admin Trade Name Freq PRN Reason Stop Dose Admin Enoxaparin Sodium 40 mg 11/22/21 09:00 Enoxaparin Sodium 40 Mg/0.4 Ml Syr SUBCUT DAILY HERMES Hydromorphone HCl 0.5 mg 11/21/21 16:43 Hydromorphone 0.5 Mg/0.5 Ml Syringe IVP Q3HR PRN MODERATE PAIN Sodium Chloride 1,000 mls @ 100 mls/hr 11/21/21 15:16 11/21/21 15:24 Sodium Chloride IV 11/22/21 01:15 100 mls/hr .Q10H STA Administration CEFTRIAXONE/D5W 1 GM PREMIX 1 gm in 50 mls @ 75 mls/hr 11/22/21 09:00 Rocephin 1 Gm/50 Ml D5w IV 11/25/21 08:59 DAILY HERMES Promethazine HCl 12.5 mg/ 50.5 mls @ 75 mls/hr 11/21/21 16:44 Sodium Chloride IV Q4HR PRN Nausea / Vomiting Sennosides 8.6 mg 11/21/21 21:00 Sennosides 8.6 Mg Tablet PO BID HERMES Sodium Chloride 1 syr 11/21/21 15:15 0.9% Sodium Chloride 10 Ml Disp.Syrin IVF PRN PRN To flush IV Body Composition Height: 5 ft 7 in Weight: 159 lb 6.4 oz Body Mass Index (BMI): 25.0 Vital Signs Temperature: 159.4 F Pulse Rate: 76 Respiratory Rate: 16 Blood Pressure: 172/113 O2 Sat by Pulse Oximetry: 98 Physical Examination Appearance: Reports Ill-appearing Ill-appearing: Mild Pain Distress: Mild Eyes: Reports TITO, EOMI and Conjunctiva clear ENT: Reports Ears normal, Nose normal and Oropharynx normal Neck: Supple Respiratory: Reports Airway patent, Breath sounds clear and Breath sounds equal Cardiovascular: Reports RRR, Pulses normal, No rub and No murmur GI/: Reports Soft, Nontender, No masses, Bowel sounds normal and No Organomegaly Musculoskeletal: Reports Normal strength, ROM intact, No edema and No calf tenderness Skin: Reports Warm, Dry and Normal color Neurological: Reports Sensation intact, Motor intact, Reflexes intact, Cranial nerves intact, Alert and Oriented Psychiatric: Reports Affect appropriate, Mood appropriate and Anxious Lab/Tests/Diagnostic Imaging Lab/Tests/Diagnostic Imaging: Lab Review 11/21/21 11/21/21 15:24 15:24 WBC 4.43 L RBC 4.00 L Hgb 12.6 Hct 37.0 MCV 92.5 MCH 31.5 H MCHC 34.1 RDW Coeff of Rich 12.2 Plt Count 232 Immature Gran % (Auto) 0.0 Neut % (Auto) 51.0 Lymph % (Auto) 35.0 Reeves % (Auto) 8.8 Eos % (Auto) 3.2 Baso % (Auto) 2.0 Neut # (Auto) 2.3 Lymph # (Auto) 1.6 Reeves # (Auto) 0.4 Eos # (Auto) 0.1 Baso # (Auto) 0.1 Immature Gran # (Auto) 0.0 Sodium 144.1 Potassium 3.67 Chloride 107.5 H Carbon Dioxide 27.8 Anion Gap 12.47 BUN 16.9 Creatinine 0.63 Estimated GFR (MDRD) 104.00 BUN/Creatinine Ratio 26.82 Glucose 118.8 H Calcium 9.81 Total Bilirubin 0.39 AST 24.3 ALT 18.0 Alkaline Phosphatase 92.1 Total Protein 7.83 Albumin 4.33 Globulin 3.50 Albumin/Globulin Ratio 1.23 Amylase 79.7 Lipase 91.6 Orders Category Date Time Status ADMIT PATIENT INPATIENT .TO [facility] (MONITORED BED) ADMISSION 11/21/21 16:40 Active EKG-(IP & OP ONLY) DAILY CARDIO 11/22/21 06:00 Ordered EKG-(IP & OP ONLY) DAILY CARDIO 11/23/21 06:00 Ordered ACTIVITY .Up ad Joanne CARE 11/21/21 16:41 Active GIVE HS SNACK 2100 CARE 11/21/21 16:42 Active INTAKE & OUTPUT Q8HR CARE 11/21/21 16:41 Active IP: INSERT SALINE LOCK ONCE CARE 11/21/21 16:41 Active TELEMETRY MONITORING TELE CARE 11/21/21 16:41 Active VITAL SIGNS Q8HR CARE 11/21/21 16:41 Active CLEAR LIQUID DIET DIETARY 11/21/21 Breakfast Ordered HS SNACK DIETARY 11/21/21 Dinner Ordered ED IV/MEDIPORT/POWERPORT .ONCE EMERGENCY 11/21/21 15:15 Active AMYLASE Stat LAB 11/21/21 15:24 Completed CBC W/ AUTO DIFF DAILY@0600 LAB 11/22/21 06:00 Ordered CBC W/ AUTO DIFF DAILY@0600 LAB 11/23/21 06:00 Ordered CBC W/ AUTO DIFF Stat LAB 11/21/21 15:24 Completed COMPREHENSIVE METABOLIC PANEL DAILY@0600 LAB 11/22/21 06:00 Ordered COMPREHENSIVE METABOLIC PANEL DAILY@0600 LAB 11/23/21 06:00 Ordered COMPREHENSIVE METABOLIC PANEL Stat LAB 11/21/21 15:24 Completed LIPASE Stat LAB 11/21/21 15:24 Completed SARS COV-2 RNA RAPID CALEB Stat LAB 11/21/21 16:40 Received URINALYSIS C & S IF INDICATED Stat LAB 11/21/21 15:15 Uncollected 0.9 % Sodium Chloride [Saline Flush] MEDS 11/21/21 15:15 Active 1 syr IVF PRN PRN Ceftriaxone/D5w 1 gm Premix [Rocephin 1 gm/50 ml D5w] MEDS 11/22/21 09:00 Ordered 1 gm in 50 ml IV DAILY Ceftriaxone/D5w 1 gm Premix [Rocephin 1 gm/50 ml D5w] MEDS 11/21/21 15:17 Discontinued 1 gm in 50 ml IV ONCE Enoxaparin Sodium [Lovenox] MEDS 11/22/21 09:00 Ordered 40 mg SUBCUT DAILY Hydromorphone HCl [Dilaudid 0.5 mg/0.5 ml Syringe] MEDS 11/21/21 16:43 Ordered 0.5 mg IVP Q3HR PRN Morphine Sulfate [Morphine 2 mg/ml Syringe] MEDS 11/21/21 15:16 Discontinued 2 mg IVP ONCE STA Promethazine HCl [Phenergan 25 mg/ml Vial] 12.5 mg MEDS 11/21/21 16:44 Ordered 0.9 % Sodium Chloride [Sodium Chloride] 50 ml IV Q4HR Sennosides [Senna] MEDS 11/21/21 21:00 Ordered 8.6 mg PO BID Sodium Chloride 0.9% [Sodium Chloride] 1,000 ml MEDS 11/21/21 15:16 Active IV 100 mls/hr RESUSCITATION STATUS Routine OTHERS 11/21/21 16:[address] ABDOMEN/PELVIS WO CONTRAST Stat RADS 11/21/21 15:15 Completed Medications Generic Name Dose Route Start Last Admin Trade Name Freq PRN Reason Stop Dose Admin Enoxaparin Sodium 40 mg 11/22/21 09:00 Enoxaparin Sodium 40 Mg/0.4 Ml Syr SUBCUT DAILY HERMES Hydromorphone HCl 0.5 mg 11/21/21 16:43 Hydromorphone 0.5 Mg/0.5 Ml Syringe IVP Q3HR PRN MODERATE PAIN Sodium Chloride 1,000 mls @ 100 mls/hr 11/21/21 15:16 11/21/21 15:24 Sodium Chloride IV 11/22/21 01:15 100 mls/hr .Q10H STA Administration CEFTRIAXONE/D5W 1 GM PREMIX 1 gm in 50 mls @ 75 mls/hr 11/22/21 09:00 Rocephin 1 Gm/50 Ml D5w IV 11/25/21 08:59 DAILY HERMES Promethazine HCl 12.5 mg/ 50.5 mls @ 75 mls/hr 11/21/21 16:44 Sodium Chloride IV Q4HR PRN Nausea / Vomiting Sennosides 8.6 mg 11/21/21 21:00 Sennosides 8.6 Mg Tablet PO BID HERMES Sodium Chloride 1 syr 11/21/21 15:15 0.9% Sodium Chloride 10 Ml Disp.Syrin IVF PRN PRN To flush IV Discontinued Medications Generic Name Dose Route Start Last Admin Trade Name Freq PRN Reason Stop Dose Admin CEFTRIAXONE/D5W 1 GM PREMIX 1 gm in 50 mls @ 75 mls/hr 11/21/21 15:17 11/21/21 15:22 Rocephin 1 Gm/50 Ml D5w IV 11/21/21 15:56 75 mls/hr ONCE ONE Administration Morphine Sulfate 2 mg 11/21/21 15:16 11/21/21 15:22 Morphine Sulfate 2 Mg/Ml Syringe IVP 11/21/21 15:17 2 mg ONCE STA Administration Assessment (1) Pyelonephritis: Status: Acute Code(s): N12 - Tubulo-interstitial nephritis, not specified as acute or chronic SNOMED Code(s): 29339160 Plan Plan: add iv antbx, pain control, monitor renal function, dvt prophylaxis
[2021-11-21] MEDS ORDERED: DILAUDID 0.5 MG/0.5 ML SYRINGE IVP STA (16:59)
[2021-11-21 18:12] LABS: BILIRUBIN,URINE Negative (NEGATIVE); CLARITY,URINE Clear (CLEAR); COLOR,URINE Yellow (YELLOW); GLUCOSE, URINE (UA) Negative (NEGATIVE); KETONES,URINE Negative (NEGATIVE); LEUKOCYTE ESTERASE ,URINE Negative (NEGATIVE); NITRITE,URINE Negative (NEGATIVE); PROTEIN,URINE Negative (NEGATIVE); URINE, BLOOD Negative (NEGATIVE); UROBILINOGEN,URINE 0.2 (0.2)
[2021-11-21 18:24] VITALS: BMI 25.1
[2021-11-21] MEDS: DILAUDID 0.5 MG/0.5 ML SYRINGE IVP PRN ×2 (20:26→23:16)
[2021-11-21] MEDS: SENNA PO SCH (20:28)
[2021-11-22] MEDS ORDERED: SODIUM CHLORIDE 1,000 ML IV SCH (00:30)
[2021-11-22] MEDS: DILAUDID 0.5 MG/0.5 ML SYRINGE IVP PRN ×2 (02:49→06:19)
[2021-11-22 05:13] LABS: BASOPHILS # (AUTO) 0.1 K/uL (0-0.2); BASOPHILS % (AUTO) 1.2 % (0.0-3.0); EOSINOPHILS # (AUTO) 0.1 K/ul (0.0-0.7); EOSINOPHILS % (AUTO) 2.6 % (0.0-7.0); HEMATOCRIT 33.8 % (37.0-47.0); HEMOGLOBIN 11.4 g/dl (12.0-16.0); IMMATURE GRANULOCYTE % (AUTO) 0.2 % (0.0-5.0); LYMPHOCYTES # (AUTO) 1.8 K/uL (0.60-3.4); LYMPHOCYTES % (AUTO) 36.2 (10.0-50.0); MEAN CORPUSCULAR HEMOGLOBIN 31.4 pg (27.0-31.0); MEAN CORPUSCULAR HGB CONC 33.7 (31.8-35.4); MEAN CORPUSCULAR VOLUME 93.1 fl (81.0-99.0); MONOCYTES # (AUTO) 0.5 K/uL (0.4-2.0); MONOCYTES % (AUTO) 9.5 (0-10); NEUTROPHILS # (AUTO) 2.5 K/ul (2.0-6.9); NEUTROPHILS % (AUTO) 50.3 % (42.2-75.2); PLATELET COUNT 210 10^3/uL (140-440); RDW COEFFICIENT OF VARIATION 12.3 % (11.6-14.8); RED BLOOD COUNT 3.63 10^6/ul (4.20-5.40); WHITE BLOOD COUNT 5.05 K/ul (4.6-10.2)
[2021-11-22 05:29] LABS: ALANINE AMINOTRANSFERASE 16.2 U/L (0-35); ALBUMIN 3.6 g/dL (3.5-5.0); ALKALINE PHOSPHATASE 77.4 U/L (38-126); ASPARTATE AMINO TRANSFERASE 24.6 U/L (14-36); BILIRUBIN,TOTAL 0.35 mg/dL (0.2-1.3); BLOOD UREA NITROGEN 14.4 mg/dL (7-17); CALCIUM 9.21 mg/dL (8.4-10.2); CARBON DIOXIDE 26.5 mmol/L (22-30.0); CHLORIDE 110.3 mmol/L (98-107); CREATININE 0.53 mg/dL (0.60-1.30); GLUCOSE 102.8 mg/dL (74-106); POTASSIUM 3.61 mmol/L (3.5-5.1); SODIUM 142.2 mmol/L (134.5-145); TOTAL PROTEIN 6.76 g/dL (6.3-8.2)
[2021-11-22 06:13] VITALS: BP 138/89; TEMP 97.6
--- NOTE | 2021-11-22 08:30 | PCM.PROG ---
Date Seen by Provider: 11/22/21 Time Seen by Provider: 08:26 Subjective: Patient feeling better. Remains afebrile. Tolerating oral intake. Objective: Vitals: T=97.6 F, P=65, R=16, KB=868/89, SPO2=99 Patient alert. She appears to be comfortable. HEENT: [] Neck: [] Lungs: [] Chest clear. Breath sounds equal. CVS: [] RRR Abdomen: Abdomen soft and nontender. No CVA tenderness.[] Extremities: [] Neurological: [] Skin: [] Lab/Tests/Diagnostic Imaging: [] (1) Pyelonephritis: Status: Acute Code(s): N12 - Tubulo-interstitial nephritis, not specified as acute or chronic SNOMED Code(s): 64235614 Assessment: Urine culture with growth of E. coli that is sensitive to Bactrim. Blood cultures negative. Plan: Discharge patient to home. She was instructed to resume her Bactrim as pr eviously directed.
--- NOTE | 2021-11-22 08:37 | PCM.DC ---
Final Diagnosis: Acute pyelonephritis Physical Exam Appearance: Well-appearing, No pain distress and Well-nourished Ill-appearing: Mild Pain Distress: None Eyes: Not Examined ENT: Not Examined Neck: Not Examined Respiratory: Airway patent, Breath sounds clear and Breath sounds equal Cardiovascular: RRR, No rub and No murmur GI/: Soft, Nontender, No masses, Bowel sounds normal and Other (no CVA tenderness) Musculoskeletal: Not Examined Skin: Not Examined Neurological: Alert and Oriented Psychiatric: Affect appropriate and Mood appropriate (1) Pyelonephritis: Status: Acute Code(s): N12 - Tubulo-interstitial nephritis, not specified as acute or chronic SNOMED Code(s): 18552744 Reason for Hospitalization: acute pyelonephritis Prognosis/Condition at Discharge: Condition at discharge was good. Patient discharged to home. Medications at Discharge: Medications at Discharge (Home Meds & RX) 1 [No Reported Medications] 11/21/21 Patient to continue the bactrim that she was previously prescribed. Lab/Diagnostics: Urine culture with E.coli that is sensitive to Bactrim Education Provided to Patient and Family: Urinary tract infection. Follow-ups: Patient to follow up with her primary care provider within one week. Discharge Disposition: Home Hospital Course: Patient admitted with acute pyelonephritis that failed outpatient antibiotic therapy. She was placed on Rocephin IVPB and had a good clinical response. At the time of discharge she was afebrile and tolerating oral intake. Plan: Discharge to home on Bactrim.
[2021-11-22] MEDS: SENNA PO SCH (08:47)
[2021-11-22] MEDS ORDERED: ROCEPHIN 1 GM/50 ML D5W 1 GM/50 ML BAG IV SCH (09:00)
[2021-11-22] MEDS ORDERED: LOVENOX SUBCUT SCH (09:00)
== END 2021-11-22 09:20 | disposition home or self-care (01) ==
LOC: ED 14:57 → INTOOBSV 17:26 → MEDSURG A 17:26
PROVIDERS: ADMIT Family Medicine; ATTEND Surgery
DX: Z79.899 Other long term (current) drug therapy; N12 Tubulo-interstitial nephritis, not specified as acute or chronic; Z72.0 Tobacco use; Z20.822 Contact with and (suspected) exposure to COVID-19; Z51.81 Encounter for therapeutic drug level monitoring